=== PATIENT | female | born 1945 | race Two or more races ===

== ENCOUNTER 2022-01-07 10:01 | Emergency (ER) | payer MEDICAID, OTHER ==
[~2022-01-07] VITALS: Ht 147.3 cm; Wt 49.9 kg
[2022-01-07 10:26] VITALS: BP 186/68
[2022-01-07 11:27] LABS: Basophils # (auto) 0.1 10 ^3/uL (0-0.2); Basophils % (auto) 1.1 % (0.0-2.0); Eosinophils # (auto) 0.2 10 ^3/uL (0-0.8); Eosinophils % (auto) 3.4 % (0.0-7.0); Hematocrit 31.8 % (36.0-46.0); Hemoglobin 10.3 g/dL (12.2-16.2); Lymphocytes # (auto) 1.5 10 ^3/uL (0.4-5.4); Lymphocytes % (auto) 28.4 % (10.0-50.0); Mean Corpuscular Hemoglobin 29.4 pg (28.0-32.0); Mean Corpuscular Hgb Conc. 32.5 g/dL (32.0-36.0); Mean Corpuscular Volume 90.4 fL (80.0-100.0); Monocytes # (auto) 0.3 10 ^3/uL (0-1.3); Monocytes % (auto) 6.1 % (0.0-12.0); Neutrophils # (auto) 3.1 10 ^3/uL (1.6-8.6); Nucleated Red Blood Cells % 0.1 %; Red Blood Cells 3.52 10^6/uL (4.0-5.20); Red Cell Distribution Width 14.2 % (11.8-14.3); White Blood Cell 5.1 10^3/uL (4.4-10.8)
[2022-01-07 11:45] LABS: Albumin 3.4 g/dL (3.4-5.0); BUN/Creatinine Ratio 12.1; Calcium 8.9 mg/dL (8.5-10.1); Magnesium 3.1 mg/dL (1.6-2.6); Potassium 4.7 mmol/L (3.5-5.1)
[2022-01-07 11:56] LABS: Bilirubin, Total 0.4 mg/dL (0.2-1.0)
== END 2022-01-07 23:07 | disposition left against medical advice (07) ==
LOC: ER 10:01
DX: R53.1 Weakness (principal); E11.22 Type 2 diabetes mellitus with diabetic chronic kidney disease; I12.0 Hypertensive chronic kidney disease with stage 5 chronic kidney disease or end stage renal disease; N18.6 End stage renal disease; Z20.822 Contact with and (suspected) exposure to COVID-19
CPT/HCPCS: 36415; 80053; 83735; 84484; 85025; 93005

== ENCOUNTER 2023-02-15 18:28 | Emergency (ER) | payer MEDICAID ==
[~2023-02-15] VITALS: Ht 160 cm; Wt 50.0 kg
[2023-02-15] MEDS ORDERED: cloNIDine HCL 0.1 MG TAB PO ONE (19:30)
[2023-02-15 20:58] VITALS: BP 151/97; TEMP 98.2
[2023-02-15 21:00] VITALS: PULSE 72; RESP 16; O2SAT 97
== END 2023-02-15 21:57 | disposition home or self-care (01) ==
LOC: ER 18:28 → EDUNIT# 18:28 → EDBD 18:28 → ER 21:56
DX: I77.0 Arteriovenous fistula, acquired (principal); I12.0 Hypertensive chronic kidney disease with stage 5 chronic kidney disease or end stage renal disease; E11.22 Type 2 diabetes mellitus with diabetic chronic kidney disease; N18.6 End stage renal disease; Z98.890 Other specified postprocedural states

== ENCOUNTER 2023-08-06 18:20 | Emergency (ER) | payer MEDICAID ==
[~2023-08-06] VITALS: Ht 162.6 cm; Wt 50.0 kg
[2023-08-06 19:30] VITALS: PULSE 83; RESP 14; O2SAT 96
[2023-08-06] MEDS: ACETAMINOPHEN 500 MG TAB PO ONE (22:28)
[2023-08-06 23:32] VITALS: BP 149/68; PULSE 80; RESP 18; TEMP 98.2; O2SAT 94
== END 2023-08-06 23:55 | disposition home or self-care (01) ==
LOC: EDBD 18:20 → ER 18:20
DX: T82.838A Hemorrhage due to vascular prosthetic devices, implants and grafts, initial encounter (principal); T82.49XA Other complication of vascular dialysis catheter, initial encounter; E11.22 Type 2 diabetes mellitus with diabetic chronic kidney disease; I12.0 Hypertensive chronic kidney disease with stage 5 chronic kidney disease or end stage renal disease; N18.6 End stage renal disease; Z99.2 Dependence on renal dialysis

== ENCOUNTER 2024-02-15 11:48 | Inpatient (IN) | payer MEDICAID ==
[~2024-02-15] VITALS: Ht 144.8 cm; Wt 47.6 kg
[~2024-02-15 11:48] MED LIST: ERGO1CAP12 PO
[2024-02-15 13:08] LABS: Basophils # (auto) 0 10 ^3/uL (0-0.2); Basophils % (auto) 0.4 % (0.0-2.0); Eosinophils # (auto) 0 10 ^3/uL (0-0.8); Eosinophils % (auto) 0.2 % (0.0-7.0); Hematocrit 38.1 % (36.0-46.0); Hemoglobin 12.3 g/dL (12.2-16.2); Lymphocytes # (auto) 0.5 10 ^3/uL (0.4-5.4); Lymphocytes % (auto) 6.1 % (10.0-50.0); Mean Corpuscular Hemoglobin 29.4 pg (28.0-32.0); Mean Corpuscular Hgb Conc. 32.3 g/dL (32.0-36.0); Monocytes # (auto) 0.5 10 ^3/uL (0-1.3); Monocytes % (auto) 6.2 % (0.0-12.0); Neutrophils # (auto) 7.6 10 ^3/uL (1.6-8.6); Neutrophils % (auto) 87.1 % (37.0-80.0); Platelet Count (auto) 230 10^3/uL (140-450); Red Blood Cells 4.19 10^6/uL (4.0-5.20); Red Cell Distribution Width 15.4 % (11.8-14.3); White Blood Cell 8.7 10^3/uL (4.4-10.8)
[2024-02-15 13:21] LABS: Chloride 94 mmol/L (98-107); Potassium 5.4 mmol/L (3.5-5.1); Sodium 131 mmol/L (136-145)
[2024-02-15 13:22] LABS: Anion Gap 4 (5-15); Carbon Dioxide 33 mmol/L (20-30)
[2024-02-15 13:23] LABS: Calcium 9.6 mg/dL (8.7-10.4)
[2024-02-15 13:28] LABS: BUN/Creatinine Ratio 7.7 (10.0-20.0); Blood Urea Nitrogen 40 mg/dL (9-23); Glucose 200 mg/dL (74-106)
[2024-02-15] MEDS ORDERED: AMLO1TAB22 PO (17:25)
[2024-02-15] MEDS ORDERED: SEVE800T20 PO (17:25)
[2024-02-15] MEDS ORDERED: ATOR20TA50 PO (17:25)
[2024-02-15] MEDS ORDERED: B-CO-6 PO (17:25)
[2024-02-15] MEDS ORDERED: FERR1TAB17 PO (17:25)
[2024-02-15] MEDS ORDERED: MORPHINE SULFATE INJ 2 MG/ml SYRG IV PRN (17:30)
[2024-02-15] MEDS ORDERED: ONDANSETRON HCL 4 MG/2 ML VIAL IV PRN (17:30)
[2024-02-15] MEDS ORDERED: NITROGLYCERIN 0.4 MG SL TAB SL PRN (17:30)
[2024-02-15 18:00] VITALS: O2SAT 99
[2024-02-15] MEDS: HYDROcodone-ACET 5/325MG TAB PO PRN (18:18)
[2024-02-15] MEDS: SODIUM ZIRCONIUM CYCL 10 GM PAK PO ONE (19:04)
[2024-02-15 20:00] VITALS: PULSE 85; RESP 18; O2SAT 96
[2024-02-15] MEDS: TEMAZEPAM 15 MG CAP PO PRN (22:36)
[2024-02-15] MEDS: SEVELAMER 800 MG TAB PO SCH (22:37)
[2024-02-15] MEDS: FERRIC CITRATE 210 MG PO SCH (22:37)
[2024-02-16 08:00] VITALS: RESP 16; O2SAT 95
[2024-02-16 08:39] LABS: Alanine Aminotransferase 18 U/L (7-40); Alkaline Phosphatase 90 U/L (46-116); Anion Gap 3 (5-15); BUN/Creatinine Ratio 5.1 (10.0-20.0); Blood Urea Nitrogen 31 mg/dL (9-23); Calcium 9.5 mg/dL (8.7-10.4); Carbon Dioxide 33 mmol/L (20-30); Chloride 96 mmol/L (98-107); Glucose 115 mg/dL (74-106); Potassium 4.6 mmol/L (3.5-5.1); Sodium 132 mmol/L (136-145); Triglycerides 80 mg/dL (< 150)
[2024-02-16 08:40] LABS: Basophils # (auto) 0.1 10 ^3/uL (0-0.2); Basophils % (auto) 0.7 % (0.0-2.0); Eosinophils # (auto) 0.2 10 ^3/uL (0-0.8); Eosinophils % (auto) 2.1 % (0.0-7.0); Hematocrit 33.7 % (36.0-46.0); LDL Cholesterol 34 mg/dL (< 100); Lymphocytes # (auto) 1.1 10 ^3/uL (0.4-5.4); Lymphocytes % (auto) 12.7 % (10.0-50.0); Mean Corpuscular Hgb Conc. 32.5 g/dL (32.0-36.0); Mean Corpuscular Volume 89.2 fL (80.0-100.0); Monocytes # (auto) 0.7 10 ^3/uL (0-1.3); Monocytes % (auto) 7.9 % (0.0-12.0); Neutrophils # (auto) 6.5 10 ^3/uL (1.6-8.6); Neutrophils % (auto) 76.6 % (37.0-80.0); Nucleated Red Blood Cells % 0.1 %; Platelet Count (auto) 216 10^3/uL (140-450); Red Blood Cells 3.78 10^6/uL (4.0-5.20); Red Cell Distribution Width 14.9 % (11.8-14.3); White Blood Cell 8.5 10^3/uL (4.4-10.8)
[2024-02-16 08:41] LABS: Albumin 3.3 g/dL (3.2-4.8); Aspartate Aminotransferase 29 U/L (13-40); Bilirubin, Total 0.5 mg/dL (0.2-1.0); Cholesterol 126 mg/dL (< 200); HDL Cholesterol 69 mg/dL (40-59); Total Protein 6.6 g/dL (5.7-8.2)
[2024-02-16] MEDS: PANTOPRAZOLE 40 MG TAB PO SCH (10:00)
[2024-02-16] MEDS: amLODIPine BESYLATE 5 MG TAB PO SCH (10:00)
[2024-02-16] MEDS: ATORVASTATIN 20 MG TAB PO SCH (10:00)
[2024-02-16] MEDS: B-COMPLEX W/ C & FOLIC ACID(NEPHROVITE TAB) PO SCH (10:00)
[2024-02-16] MEDS: hydrALAZINE HCL 20 MG/ML VL IV PRN (11:46)
[2024-02-16] MEDS: SODIUM CHL 0.9% 1000 ML BAG XX ONE (19:37)
[2024-02-16 19:45] VITALS: PULSE 109; RESP 28; O2SAT 95
[2024-02-17] VITALS (8 sets, daily range): BP systolic 143–175; BP diastolic 53–83; PULSE 89–101; RESP 15–19; TEMP 98–98.1; O2SAT 93–97
[2024-02-17 08:57] LABS: Hepatitis B Surface Antigen Negative (Negative)
[2024-02-17 09:19] LABS: Hepatitis A Ab IgM Negative; Hepatitis B Core IgM Negative
[2024-02-17] MEDS: MORPHINE SULFATE INJ 2 MG/ml SYRG IV PRN (11:03)
[2024-02-17 11:54] LABS: Hepatitis C Antibody Negative (Negative)
[2024-02-17 15:29] LABS: Urine Bacteria None Seen /hpf (None Seen)
[2024-02-17 15:39] LABS: Urine Blood 1+ /uL (Negative); Urine Clarity Turbid (Clear); Urine Color Light-Yellow (Yellow); Urine Protein, UAD 3+ (Negative); Urine Specific Gravity 1.011 (1.001-1.035); Urine Urobilinogen Normal (Negative); Urine WBC 326 /hpf (0 - 5); Urine pH 8.5 (5.0-9.0)
[2024-02-17 16:41] LABS: INR 1.09 (0.9-1.15); Partial Thromboplastin Time 28.3 SEC (24.5-34.5); Prothrombin Time 11.5 sec (9.3-11.8)
[2024-02-18] VITALS (8 sets, daily range): BP systolic 127–171; BP diastolic 69–76; PULSE 72–96; RESP 16–18; TEMP 98–100.5; O2SAT 91–100
[2024-02-18] MEDS: SODIUM CHL 0.9% 1000 ML BAG XX ONE (14:30)
[2024-02-18 21:03] LABS: Body Fluid pH 8
[2024-02-18 21:04] LABS: Body Fluid Polymorphonuclear 2 % (0-25); Body Fluid Red Blood Cells 335 CUMM (0-2000); Body Fluid White Blood Cells 65 CUMM (0-200)
[2024-02-19] VITALS (8 sets, daily range): BP systolic 104–144; BP diastolic 5–71; PULSE 81–99; RESP 18–20; TEMP 98.3–99.3; O2SAT 95–99
[2024-02-19 07:10] LABS: Basophils # (auto) 0 10 ^3/uL (0-0.2); Basophils % (auto) 0.6 % (0.0-2.0); Eosinophils # (auto) 0.2 10 ^3/uL (0-0.8); Eosinophils % (auto) 2.3 % (0.0-7.0); Hematocrit 35.1 % (36.0-46.0); Hemoglobin 11.6 g/dL (12.2-16.2); Lymphocytes # (auto) 1.2 10 ^3/uL (0.4-5.4); Lymphocytes % (auto) 15.8 % (10.0-50.0); Mean Corpuscular Hemoglobin 29.6 pg (28.0-32.0); Mean Corpuscular Volume 89.6 fL (80.0-100.0); Monocytes # (auto) 0.7 10 ^3/uL (0-1.3); Neutrophils # (auto) 5.2 10 ^3/uL (1.6-8.6); Neutrophils % (auto) 71.3 % (37.0-80.0); Nucleated Red Blood Cells % 0.1 %; Platelet Count (auto) 200 10^3/uL (140-450); Red Blood Cells 3.91 10^6/uL (4.0-5.20); Red Cell Distribution Width 15.4 % (11.8-14.3); White Blood Cell 7.3 10^3/uL (4.4-10.8)
[2024-02-19 07:13] LABS: Chloride 102 mmol/L (98-107); Potassium 4.1 mmol/L (3.5-5.1); Sodium 135 mmol/L (136-145)
[2024-02-19 07:14] LABS: Anion Gap 1 (5-15); Calcium 9.4 mg/dL (8.7-10.4); Carbon Dioxide 32 mmol/L (20-30)
[2024-02-19 07:19] LABS: BUN/Creatinine Ratio 5.2 (10.0-20.0); Blood Urea Nitrogen 18 mg/dL (9-23); Glucose 129 mg/dL (74-106)
[2024-02-19] MEDS: SACUBITRIL-VALSARTAN 24mg/26mg TAB PO SCH (21:48)
[2024-02-19] MEDS: CARVEDILOL 3.125 MG TAB PO SCH (21:48)
[2024-02-20] VITALS (8 sets, daily range): BP systolic 102–146; BP diastolic 44–71; PULSE 58–86; RESP 15–18; TEMP 97.2–98.3; O2SAT 94–100
[2024-02-20 07:07] LABS: Anion Gap 5 (5-15); Carbon Dioxide 28 mmol/L (20-30); Chloride 98 mmol/L (98-107); Potassium 4.6 mmol/L (3.5-5.1); Sodium 131 mmol/L (136-145)
[2024-02-20 07:08] LABS: Calcium 9.1 mg/dL (8.7-10.4)
[2024-02-20 07:12] LABS: Basophils # (auto) 0.1 10 ^3/uL (0-0.2); Basophils % (auto) 0.8 % (0.0-2.0); Eosinophils # (auto) 0.3 10 ^3/uL (0-0.8); Eosinophils % (auto) 3.9 % (0.0-7.0); Hematocrit 36.6 % (36.0-46.0); Lymphocytes # (auto) 1.2 10 ^3/uL (0.4-5.4); Mean Corpuscular Hemoglobin 29.6 pg (28.0-32.0); Mean Corpuscular Hgb Conc. 32.7 g/dL (32.0-36.0); Mean Corpuscular Volume 90.5 fL (80.0-100.0); Monocytes # (auto) 0.9 10 ^3/uL (0-1.3); Monocytes % (auto) 11.2 % (0.0-12.0); Neutrophils # (auto) 5.3 10 ^3/uL (1.6-8.6); Neutrophils % (auto) 69.1 % (37.0-80.0); Nucleated Red Blood Cells % 0.1 %; Platelet Count (auto) 167 10^3/uL (140-450); Red Blood Cells 4.05 10^6/uL (4.0-5.20); Red Cell Distribution Width 15.7 % (11.8-14.3); White Blood Cell 7.7 10^3/uL (4.4-10.8)
[2024-02-20 07:13] LABS: BUN/Creatinine Ratio 6.8 (10.0-20.0); Glucose 153 mg/dL (74-106)
[2024-02-20 07:20] LABS: Blood Urea Nitrogen 32 mg/dL (9-23)
[2024-02-21] VITALS (8 sets, daily range): BP systolic 88–126; BP diastolic 39–57; PULSE 61–79; RESP 16–18; TEMP 97.4–98.5; O2SAT 93–100
[2024-02-21] MEDS: SODIUM CHL 0.9% 1000 ML BAG XX ONE (07:00)
[2024-02-21 07:15] LABS: Basophils # (auto) 0.1 10 ^3/uL (0-0.2); Basophils % (auto) 0.8 % (0.0-2.0); Eosinophils # (auto) 0.4 10 ^3/uL (0-0.8); Eosinophils % (auto) 5.1 % (0.0-7.0); Hematocrit 37.3 % (36.0-46.0); Hemoglobin 12.1 g/dL (12.2-16.2); Lymphocytes # (auto) 1.2 10 ^3/uL (0.4-5.4); Lymphocytes % (auto) 14.9 % (10.0-50.0); Mean Corpuscular Hemoglobin 28.8 pg (28.0-32.0); Mean Corpuscular Hgb Conc. 32.5 g/dL (32.0-36.0); Mean Corpuscular Volume 88.5 fL (80.0-100.0); Monocytes # (auto) 0.7 10 ^3/uL (0-1.3); Monocytes % (auto) 8.7 % (0.0-12.0); Neutrophils # (auto) 5.5 10 ^3/uL (1.6-8.6); Neutrophils % (auto) 70.5 % (37.0-80.0); Platelet Count (auto) 182 10^3/uL (140-450); Red Blood Cells 4.21 10^6/uL (4.0-5.20); White Blood Cell 7.8 10^3/uL (4.4-10.8)
[2024-02-21 07:54] LABS: Anion Gap 3 (5-15); Calcium 9.4 mg/dL (8.7-10.4); Carbon Dioxide 30 mmol/L (20-30); Chloride 94 mmol/L (98-107); Potassium 4.7 mmol/L (3.5-5.1); Sodium 127 mmol/L (136-145)
[2024-02-21 08:00] LABS: BUN/Creatinine Ratio 8.6 (10.0-20.0); Glucose 161 mg/dL (74-106)
[2024-02-21 08:02] LABS: Blood Urea Nitrogen 49 mg/dL (9-23)
[2024-02-21] MEDS: cefTRIAXone 1GM/50ML D5W 50 ML IV SCH (09:32)
[2024-02-21] MEDS: AZITHROMYCIN 500MG/ 250ML 250 ML IV SCH (15:41)
[2024-02-22] VITALS (9 sets, daily range): BP systolic 101–129; BP diastolic 41–101; PULSE 66–90; RESP 16–19; TEMP 97.5–98.4; O2SAT 94–100
[2024-02-22 13:07] LABS: Protein, Body Fluid 3.8 g/dL (.)
[2024-02-23] VITALS (9 sets, daily range): BP systolic 108–139; BP diastolic 45–73; PULSE 69–92; RESP 14–20; TEMP 97.6–97.9; O2SAT 90–100
[2024-02-23] MEDS: SODIUM CHL 0.9% 1000 ML BAG XX ONE (08:12)
[2024-02-23] MEDS: EPOETIN ALFA-EPBX 4,000 UNIT/ML VIAL SC ONE (20:34)
[2024-02-24] VITALS (8 sets, daily range): BP systolic 78–131; BP diastolic 33–66; PULSE 73–86; RESP 14–18; TEMP 97.2–98.9; O2SAT 91–100
[2024-02-24 11:17] LABS: Basophils # (auto) 0.1 10 ^3/uL (0-0.2); Basophils % (auto) 0.9 % (0.0-2.0); Eosinophils # (auto) 0.2 10 ^3/uL (0-0.8); Eosinophils % (auto) 2.3 % (0.0-7.0); Hematocrit 33.5 % (36.0-46.0); Lymphocytes % (auto) 15.8 % (10.0-50.0); Mean Corpuscular Hgb Conc. 32.9 g/dL (32.0-36.0); Mean Corpuscular Volume 88.3 fL (80.0-100.0); Monocytes # (auto) 0.6 10 ^3/uL (0-1.3); Monocytes % (auto) 9.5 % (0.0-12.0); Neutrophils # (auto) 4.6 10 ^3/uL (1.6-8.6); Neutrophils % (auto) 71.5 % (37.0-80.0); Nucleated Red Blood Cells % 0.2 %; Platelet Count (auto) 178 10^3/uL (140-450); Red Blood Cells 3.79 10^6/uL (4.0-5.20); Red Cell Distribution Width 15.1 % (11.8-14.3); White Blood Cell 6.5 10^3/uL (4.4-10.8)
[2024-02-24 11:30] LABS: Anion Gap 5 (5-15); Calcium 9.2 mg/dL (8.7-10.4); Carbon Dioxide 30 mmol/L (20-30); Chloride 96 mmol/L (98-107); Potassium 4.5 mmol/L (3.5-5.1); Sodium 131 mmol/L (136-145)
[2024-02-24 11:36] LABS: BUN/Creatinine Ratio 9.4 (10.0-20.0); Blood Urea Nitrogen 42 mg/dL (9-23); Glucose 224 mg/dL (74-106); Magnesium 2.1 mg/dL (1.6-2.6)
[2024-02-24] MEDS: DOCUSATE SOD 100 MG CAP PO PRN (11:42)
[2024-02-25] VITALS (12 sets, daily range): BP systolic 106–131; BP diastolic 38–67; PULSE 61–82; RESP 14–20; TEMP 97.5–97.9; O2SAT 91–100
[2024-02-25 06:33] LABS: INR 1.05 (0.9-1.15); Partial Thromboplastin Time 29.2 SEC (24.5-34.5); Prothrombin Time 11.1 sec (9.3-11.8)
[2024-02-25] MEDS: SODIUM CHL 0.9% 1000 ML BAG XX ONE (07:00)
[2024-02-25] MEDS: IODIXANOL 320MG/ML 100ML BTL IV ONE (07:29)
[2024-02-25] MEDS: VERAPAMIL 2.5MG/ML INJ 2ML VIAL IV ONE (08:00)
[2024-02-25] MEDS: ANGIOMAX 250 MG VIAL IV ONE (08:00)
[2024-02-25] MEDS: HEPARIN SODIUM (PORCINE) 5000 UNITS/ML 1ML VIAL ONE (08:00)
[2024-02-25] MEDS: fentaNYL CITRATE 100 MCG/2 ML VL ONE (08:01)
[2024-02-25] MEDS: LIDOCAINE 2%HCL (LOCAL ANESTH.) INJ 20ML MDV ONE (08:01)
[2024-02-25] MEDS: MIDAZOLAM HCL 2MG/2ML 2ml VIAL (1mg/ml) ONE (08:01)
[2024-02-25] MEDS: SODIUM CHL 0.9% 0 ML ONE (08:01)
[2024-02-25] MEDS: ACETAMINOPHEN 325 MG TAB PO PRN (11:59)
[2024-02-25] MEDS ORDERED: CARV-214 PO (14:48)
[2024-02-25] MEDS ORDERED: SACU1TAB PO (14:48)
[2024-02-25] MEDS ORDERED: DOXY100C79 PO (14:50)
[2024-02-25] MEDS: MUPIROCIN 2% OINT 15gm or 22gm TOP SCH (21:43)
[2024-02-26] VITALS (8 sets, daily range): BP systolic 115–136; BP diastolic 44–73; PULSE 62–74; RESP 15–20; TEMP 97.8–99.1; O2SAT 96–100
[2024-02-26] MEDS: SEVELAMER 800 MG TAB PO SCH (12:11)
[2024-02-27] VITALS (8 sets, daily range): BP systolic 94–159; BP diastolic 48–71; PULSE 68–77; RESP 16–21; TEMP 97.7–98.3; O2SAT 98–100
[2024-02-28] VITALS (8 sets, daily range): BP systolic 105–141; BP diastolic 53–65; PULSE 62–81; RESP 16–20; TEMP 97.6–98.5; O2SAT 95–100
[2024-02-28] MEDS: SODIUM CHL 0.9% 1000 ML BAG XX ONE (07:00)
[2024-02-28 10:40] LABS: Basophils # (auto) 0.1 10 ^3/uL (0-0.2); Basophils % (auto) 1.3 % (0.0-2.0); Eosinophils # (auto) 0.2 10 ^3/uL (0-0.8); Eosinophils % (auto) 2.6 % (0.0-7.0); Hematocrit 32.5 % (36.0-46.0); Hemoglobin 10.8 g/dL (12.2-16.2); Lymphocytes # (auto) 1.1 10 ^3/uL (0.4-5.4); Lymphocytes % (auto) 19.3 % (10.0-50.0); Mean Corpuscular Hemoglobin 28.9 pg (28.0-32.0); Mean Corpuscular Hgb Conc. 33.2 g/dL (32.0-36.0); Monocytes # (auto) 0.4 10 ^3/uL (0-1.3); Monocytes % (auto) 6.1 % (0.0-12.0); Neutrophils # (auto) 4.1 10 ^3/uL (1.6-8.6); Neutrophils % (auto) 70.7 % (37.0-80.0); Platelet Count (auto) 239 10^3/uL (140-450); Red Blood Cells 3.73 10^6/uL (4.0-5.20); Red Cell Distribution Width 14.9 % (11.8-14.3); White Blood Cell 5.8 10^3/uL (4.4-10.8)
[2024-02-28] MEDS: ALBUMIN 25% 100 ML IV ONE ×2 (11:26)
[2024-02-28] MEDS: CATHFLO ACTIVASE (ALTEPLASE) 2 MG VIAL IV ONE (13:31)
[2024-02-28 14:43] LABS: Chloride 99 mmol/L (98-107); Sodium 134 mmol/L (136-145)
[2024-02-28 14:44] LABS: Anion Gap 4 (5-15); Carbon Dioxide 31 mmol/L (20-30)
[2024-02-28 14:45] LABS: Calcium 9.5 mg/dL (8.7-10.4)
[2024-02-28 14:49] LABS: BUN/Creatinine Ratio 9.3 (10.0-20.0); Blood Urea Nitrogen 27 mg/dL (9-23); Glucose 178 mg/dL (74-106)
[2024-02-29] VITALS (8 sets, daily range): BP systolic 111–142; BP diastolic 54–69; PULSE 66–76; RESP 17–18; TEMP 98.1–98.5; O2SAT 93–100
[2024-02-29] MEDS: CATHFLO ACTIVASE (ALTEPLASE) 2 MG VIAL IV ONE (16:33)
[2024-03-01] VITALS (9 sets, daily range): BP systolic 112–142; BP diastolic 43–73; PULSE 68–83; RESP 16–100; TEMP 97.4–98.5; O2SAT 95–100
[2024-03-01] MEDS: SODIUM CHL 0.9% 1000 ML BAG XX ONE (08:31)
[2024-03-01] MEDS: ALBUMIN 25% 50 ML IV STA (09:54)
[2024-03-01] MEDS: ALBUMIN 25% 0 ML IV ONE (10:03)
[2024-03-01] MEDS: ALBUMIN 25% 100 ML IV ONE (10:08)
[2024-03-01] MEDS: CATHFLO ACTIVASE (ALTEPLASE) 2 MG VIAL IV STA (12:54)
[2024-03-01 14:08] LABS: Alanine Aminotransferase 25 U/L (7-40); Albumin 3.2 g/dL (3.2-4.8); Alkaline Phosphatase 113 U/L (46-116); Anion Gap 3 (5-15); Aspartate Aminotransferase 23 U/L (13-40); BUN/Creatinine Ratio 8.6 (10.0-20.0); Blood Urea Nitrogen 24 mg/dL (9-23); Calcium 9.1 mg/dL (8.7-10.4); Carbon Dioxide 31 mmol/L (20-30); Chloride 99 mmol/L (98-107); Glucose 279 mg/dL (74-106); Potassium 4.2 mmol/L (3.5-5.1); Sodium 133 mmol/L (136-145)
[2024-03-01 14:09] LABS: Bilirubin, Total 0.2 mg/dL (0.2-1.0); Total Protein 5.4 g/dL (5.7-8.2)
[2024-03-02] VITALS (8 sets, daily range): BP systolic 97–135; BP diastolic 46–72; PULSE 64–72; RESP 15–20; TEMP 97.3–98.4; O2SAT 96–100
[2024-03-02 06:43] LABS: Anion Gap 3 (5-15); Calcium 9.5 mg/dL (8.7-10.4); Carbon Dioxide 32 mmol/L (20-30); Chloride 96 mmol/L (98-107); Potassium 4.6 mmol/L (3.5-5.1); Sodium 131 mmol/L (136-145)
[2024-03-02 06:49] LABS: BUN/Creatinine Ratio 8.6 (10.0-20.0); Glucose 189 mg/dL (74-106)
[2024-03-02 06:56] LABS: Basophils # (auto) 0.1 10 ^3/uL (0-0.2); Basophils % (auto) 1.3 % (0.0-2.0); Eosinophils # (auto) 0.2 10 ^3/uL (0-0.8); Eosinophils % (auto) 2.7 % (0.0-7.0); Hemoglobin 10.1 g/dL (12.2-16.2); Lymphocytes # (auto) 1.3 10 ^3/uL (0.4-5.4); Lymphocytes % (auto) 19.5 % (10.0-50.0); Mean Corpuscular Hemoglobin 28.8 pg (28.0-32.0); Mean Corpuscular Hgb Conc. 33.5 g/dL (32.0-36.0); Mean Corpuscular Volume 85.8 fL (80.0-100.0); Monocytes # (auto) 0.6 10 ^3/uL (0-1.3); Monocytes % (auto) 9.2 % (0.0-12.0); Neutrophils # (auto) 4.3 10 ^3/uL (1.6-8.6); Neutrophils % (auto) 67.3 % (37.0-80.0); Nucleated Red Blood Cells % 0.1 %; Platelet Count (auto) 212 10^3/uL (140-450); White Blood Cell 6.4 10^3/uL (4.4-10.8)
[2024-03-02 07:01] LABS: Blood Urea Nitrogen 35 mg/dL (9-23)
[2024-03-03] VITALS (8 sets, daily range): BP systolic 102–155; BP diastolic 36–76; PULSE 68–79; RESP 14–20; TEMP 97.4–98.6; O2SAT 94–100
[2024-03-03] MEDS: SODIUM CHL 0.9% 1000 ML BAG XX ONE (07:30)
[2024-03-04] VITALS (9 sets, daily range): BP systolic 110–139; BP diastolic 48–80; PULSE 62–84; RESP 14–19; TEMP 36.8; O2SAT 93–98
[2024-03-05 01:00] VITALS: BP 127/68; PULSE 68; RESP 18; TEMP 97.9; O2SAT 94
[2024-03-05 05:00] VITALS: BP 133/71; PULSE 71; RESP 19; TEMP 98; O2SAT 93
[2024-03-05 08:00] VITALS: PULSE 72; RESP 18
[2024-03-05 09:00] VITALS: BP 140/63; PULSE 71; RESP 17; TEMP 98.4; O2SAT 99
[2024-03-05 13:00] VITALS: BP 127/60; PULSE 67; RESP 18; TEMP 98.4; O2SAT 98
[2024-03-05 13:41] LABS: Basophils # (auto) 0.1 10 ^3/uL (0-0.2); Basophils % (auto) 1.4 % (0.0-2.0); Eosinophils # (auto) 0.2 10 ^3/uL (0-0.8); Eosinophils % (auto) 2.7 % (0.0-7.0); Hematocrit 33.1 % (36.0-46.0); Lymphocytes # (auto) 0.9 10 ^3/uL (0.4-5.4); Lymphocytes % (auto) 14.7 % (10.0-50.0); Mean Corpuscular Hgb Conc. 33.3 g/dL (32.0-36.0); Mean Corpuscular Volume 87.3 fL (80.0-100.0); Monocytes # (auto) 0.4 10 ^3/uL (0-1.3); Monocytes % (auto) 6.6 % (0.0-12.0); Neutrophils # (auto) 4.7 10 ^3/uL (1.6-8.6); Neutrophils % (auto) 74.6 % (37.0-80.0); Platelet Count (auto) 268 10^3/uL (140-450); Red Blood Cells 3.79 10^6/uL (4.0-5.20); Red Cell Distribution Width 15.6 % (11.8-14.3); White Blood Cell 6.3 10^3/uL (4.4-10.8)
[2024-03-05 13:49] LABS: Chloride 97 mmol/L (98-107); Potassium 5.5 mmol/L (3.5-5.1); Sodium 129 mmol/L (136-145)
[2024-03-05 13:50] LABS: Anion Gap 2 (5-15); Calcium 9.7 mg/dL (8.7-10.4); Carbon Dioxide 30 mmol/L (20-30)
[2024-03-05 13:55] LABS: BUN/Creatinine Ratio 11.9 (10.0-20.0); Blood Urea Nitrogen 62 mg/dL (9-23); Glucose 234 mg/dL (74-106)
[2024-03-05] MEDS: SODIUM ZIRCONIUM CYCL 10 GM PAK PO ONE (17:15)
[2024-03-06] MEDS ORDERED: SODIUM CHL 0.9% 1000 ML BAG XX ONE (07:00)
[2024-03-06] MEDS ORDERED: EPOETIN ALFA-EPBX 10,000 UNIT/1ML VIAL SC ONE (21:00)
== END 2024-03-05 17:30 | DRG 192 ==
LOC: ER 11:48 → EDBD 11:48 → TELE 17:25 → TELE-WESTW 02-17 09:12
PROVIDERS: ADMIT Nurse Practitioner; ATTEND Nurse Practitioner
PROC: 5A1D70Z Performance of Urinary Filtration, Intermittent, Less than 6 Hours Per Day (ICD-10-PCS; 2024-02-16)
PROC: 5A1D70Z Performance of Urinary Filtration, Intermittent, Less than 6 Hours Per Day (ICD-10-PCS; 2024-02-18)
PROC: 0W9B3ZZ Drainage of Left Pleural Cavity, Percutaneous Approach (ICD-10-PCS; 2024-02-18)
PROC: 5A1D70Z Performance of Urinary Filtration, Intermittent, Less than 6 Hours Per Day (ICD-10-PCS; 2024-02-21)
PROC: 0W9B3ZZ Drainage of Left Pleural Cavity, Percutaneous Approach (ICD-10-PCS; 2024-02-22)
PROC: 5A1D70Z Performance of Urinary Filtration, Intermittent, Less than 6 Hours Per Day (ICD-10-PCS; 2024-02-23)
PROC: 4A023N7 Measurement of Cardiac Sampling and Pressure, Left Heart, Percutaneous Approach (ICD-10-PCS; principal; 2024-02-25)
PROC: B211YZZ Fluoroscopy of Multiple Coronary Arteries using Other Contrast (ICD-10-PCS; 2024-02-25)
PROC: B215YZZ Fluoroscopy of Left Heart using Other Contrast (ICD-10-PCS; 2024-02-25)
PROC: 5A1D70Z Performance of Urinary Filtration, Intermittent, Less than 6 Hours Per Day (ICD-10-PCS; 2024-02-25)
PROC: 0W9B30Z Drainage of Left Pleural Cavity with Drainage Device, Percutaneous Approach (ICD-10-PCS; 2024-02-27)
PROC: 5A1D70Z Performance of Urinary Filtration, Intermittent, Less than 6 Hours Per Day (ICD-10-PCS; 2024-02-28)
PROC: 5A1D70Z Performance of Urinary Filtration, Intermittent, Less than 6 Hours Per Day (ICD-10-PCS; 2024-03-01)
DX: I13.2 Hypertensive heart and chronic kidney disease with heart failure and with stage 5 chronic kidney disease, or end stage renal disease (principal); J96.01 Acute respiratory failure with hypoxia; J15.69 Pneumonia due to other Gram-negative bacteria; J94.2 Hemothorax; E87.20 Acidosis, unspecified; I27.20 Pulmonary hypertension, unspecified; E87.1 Hypo-osmolality and hyponatremia; J15.9 Unspecified bacterial pneumonia; J91.8 Pleural effusion in other conditions classified elsewhere; I25.10 Atherosclerotic heart disease of native coronary artery without angina pectoris; I50.23 Acute on chronic systolic (congestive) heart failure; R64 Cachexia; N18.6 End stage renal disease; E11.22 Type 2 diabetes mellitus with diabetic chronic kidney disease; E78.5 Hyperlipidemia, unspecified; E87.5 Hyperkalemia; N25.81 Secondary hyperparathyroidism of renal origin; J98.11 Atelectasis; Z99.2 Dependence on renal dialysis; J93.9 Pneumothorax, unspecified; Z68.1 Body mass index [BMI] 19.9 or less, adult; I42.8 Other cardiomyopathies; S09.90XA Unspecified injury of head, initial encounter; W01.0XXA Fall on same level from slipping, tripping and stumbling without subsequent striking against object, initial encounter; S09.93XA Unspecified injury of face, initial encounter; S05.11XA Contusion of eyeball and orbital tissues, right eye, initial encounter; I35.1 Nonrheumatic aortic (valve) insufficiency; I07.1 Rheumatic tricuspid insufficiency; F03.90 Unspecified dementia, unspecified severity, without behavioral disturbance, psychotic disturbance, mood disturbance, and anxiety; Y93.89 Activity, other specified; Y92.89 Other specified places as the place of occurrence of the external cause; Y99.8 Other external cause status; Z86.73 Personal history of transient ischemic attack (TIA), and cerebral infarction without residual deficits; Z79.899 Other long term (current) drug therapy
CPT/HCPCS: 32555; 36415; 70450; 70486; 70551; 71045; 71250; 76604; 80048; 80053; 80061; 80074; 81001; 83036; 83735; 83986; 84484; 85018; 85025; 85610; 85730; 86850; 86900; 86901; 87081; 87205; 89051; 90935; 93005; 93306; 93458; 97110; 97116; 97163; 97530; 99152; G0378; J1642; J2250; P9047; Q9967

== ENCOUNTER 2024-03-13 11:45 | Inpatient (IN) | payer MEDICAID ==
[~2024-03-13] VITALS: Ht 142.2 cm; Wt 42.5 kg
[~2024-03-13 11:45] MED LIST changes: +AMLO1TAB22 PO; +ATOR20TA50 PO; +B-CO-6 PO; +CARV-214 PO; +DOXY100C79 PO; +FERR1TAB17 PO; +SACU1TAB PO; +SEVE800T20 PO
[2024-03-13 12:10] VITALS: PULSE 96; RESP 30; O2SAT 96
[2024-03-13 14:15] LABS: Basophils # (auto) 0.1 10 ^3/uL (0-0.2); Basophils % (auto) 0.8 % (0.0-2.0); Eosinophils # (auto) 0 10 ^3/uL (0-0.8); Hemoglobin 11.9 g/dL (12.2-16.2); Lymphocytes # (auto) 0.6 10 ^3/uL (0.4-5.4); Lymphocytes % (auto) 6.5 % (10.0-50.0); Mean Corpuscular Hemoglobin 30.1 pg (28.0-32.0); Mean Corpuscular Volume 88.6 fL (80.0-100.0); Monocytes # (auto) 0.6 10 ^3/uL (0-1.3); Monocytes % (auto) 5.7 % (0.0-12.0); Neutrophils # (auto) 8.4 10 ^3/uL (1.6-8.6); Platelet Count (auto) 277 10^3/uL (140-450); Red Blood Cells 3.95 10^6/uL (4.0-5.20); Red Cell Distribution Width 17.4 % (11.8-14.3); White Blood Cell 9.6 10^3/uL (4.4-10.8)
[2024-03-13 14:53] LABS: Alanine Aminotransferase 46 U/L (7-40); Albumin 3.7 g/dL (3.2-4.8); Alkaline Phosphatase 163 U/L (46-116); Anion Gap 8 (5-15); Aspartate Aminotransferase 42 U/L (13-40); BUN/Creatinine Ratio 13.2 (10.0-20.0); Bilirubin, Total 0.5 mg/dL (0.2-1.0); Calcium 10.4 mg/dL (8.7-10.4); Carbon Dioxide 28 mmol/L (20-30); Chloride 100 mmol/L (98-107); Glucose 178 mg/dL (74-106); Potassium 5.5 mmol/L (3.5-5.1); Sodium 136 mmol/L (136-145); Total Protein 7.1 g/dL (5.7-8.2)
[2024-03-13 15:16] LABS: Urine Bacteria None Seen /hpf (None Seen)
[2024-03-13] MEDS: FUROSEMIDE 40 MG/4 ML VIAL IV ONE (15:18)
[2024-03-13] MEDS: NITROGLYCERIN 2% OINT 1GM PKG TD ONE (15:18)
[2024-03-13] MEDS: MORPHINE SULFATE INJ 2 MG/ml SYRG IV ONE (15:19)
[2024-03-13 15:24] LABS: Blood Urea Nitrogen 83 mg/dL (9-23)
[2024-03-13 15:33] LABS: Urine Blood 1+ /uL (Negative); Urine Clarity Ex.Turbid (Clear); Urine Color Light-Orange (Yellow); Urine Protein, UAD 2+ (Negative); Urine Specific Gravity 1.012 (1.001-1.035); Urine Urobilinogen Normal (Negative); Urine WBC 284 /hpf (0 - 5)
[2024-03-13] MEDS ORDERED: ACETAMINOPHEN 325 MG TAB PO PRN (18:45)
[2024-03-13] MEDS ORDERED: MORPHINE SULFATE INJ 2 MG/ml SYRG IV PRN (18:45)
[2024-03-13] MEDS ORDERED: NITROGLYCERIN 0.4 MG SL TAB SL PRN (18:45)
[2024-03-13] MEDS ORDERED: HYDROcodone-ACET 5/325MG TAB PO PRN (18:45)
[2024-03-13 19:20] VITALS: PULSE 105; RESP 40; O2SAT 88
[2024-03-13 21:30] VITALS: O2SAT 94
[2024-03-13 22:00] VITALS: BP 145/78; PULSE 103; RESP 20; TEMP 99.2; O2SAT 94
[2024-03-13] MEDS: SACUBITRIL-VALSARTAN 24mg/26mg TAB PO SCH (22:59)
[2024-03-13] MEDS: CARVEDILOL 3.125 MG TAB PO SCH (23:03)
[2024-03-14] VITALS (10 sets, daily range): BP systolic 120–137; BP diastolic 65–84; PULSE 68–92; RESP 16–20; TEMP 98.2–99.5; O2SAT 90–100
[2024-03-14 07:07] LABS: Basophils # (auto) 0.1 10 ^3/uL (0-0.2); Basophils % (auto) 1.3 % (0.0-2.0); Eosinophils # (auto) 0.1 10 ^3/uL (0-0.8); Eosinophils % (auto) 0.7 % (0.0-7.0); Hematocrit 30.1 % (36.0-46.0); Hemoglobin 10.1 g/dL (12.2-16.2); Lymphocytes # (auto) 0.9 10 ^3/uL (0.4-5.4); Lymphocytes % (auto) 11.7 % (10.0-50.0); Mean Corpuscular Hemoglobin 29.6 pg (28.0-32.0); Mean Corpuscular Hgb Conc. 33.6 g/dL (32.0-36.0); Mean Corpuscular Volume 88.2 fL (80.0-100.0); Monocytes # (auto) 0.5 10 ^3/uL (0-1.3); Monocytes % (auto) 7.4 % (0.0-12.0); Neutrophils # (auto) 5.8 10 ^3/uL (1.6-8.6); Neutrophils % (auto) 78.9 % (37.0-80.0); Platelet Count (auto) 222 10^3/uL (140-450); Red Blood Cells 3.41 10^6/uL (4.0-5.20); Red Cell Distribution Width 18.1 % (11.8-14.3); White Blood Cell 7.4 10^3/uL (4.4-10.8)
[2024-03-14 07:15] LABS: Alanine Aminotransferase 33 U/L (7-40); Albumin 3.2 g/dL (3.2-4.8); Alkaline Phosphatase 117 U/L (46-116); Anion Gap 8 (5-15); Aspartate Aminotransferase 24 U/L (13-40); BUN/Creatinine Ratio 14.1 (10.0-20.0); Calcium 9.8 mg/dL (8.7-10.4); Carbon Dioxide 27 mmol/L (20-30); Chloride 101 mmol/L (98-107); Glucose 155 mg/dL (74-106); Sodium 136 mmol/L (136-145)
[2024-03-14 07:16] LABS: Bilirubin, Total 0.5 mg/dL (0.2-1.0); Total Protein 6.4 g/dL (5.7-8.2)
[2024-03-14 07:19] LABS: Potassium 5.7 mmol/L (3.5-5.1)
[2024-03-14 07:20] LABS: Blood Urea Nitrogen 96 mg/dL (9-23)
[2024-03-14] MEDS: SODIUM CHL 0.9% 1000 ML BAG XX ONE (07:30)
[2024-03-14] MEDS: SEVELAMER 800 MG TAB PO SCH (08:55)
[2024-03-14] MEDS: B-COMPLEX W/ C & FOLIC ACID(NEPHROVITE TAB) PO SCH (08:56)
[2024-03-14] MEDS: ATORVASTATIN 20 MG TAB PO SCH (08:56)
[2024-03-14] MEDS: amLODIPine BESYLATE 5 MG TAB PO SCH (10:00)
[2024-03-14] MEDS ORDERED: ALBUTEROL SULF 2.5 MG/0.5ML(0.5%) NEB SOLN NEB PRN (16:15)
[2024-03-15] VITALS (10 sets, daily range): BP systolic 128–144; BP diastolic 62–71; PULSE 64–81; RESP 16–18; TEMP 98–98.9; O2SAT 97–100
[2024-03-16] VITALS (11 sets, daily range): BP systolic 112–137; BP diastolic 50–70; PULSE 63–76; RESP 14–20; TEMP 97.3–99.7; O2SAT 95–100
[2024-03-16] MEDS: SODIUM CHL 0.9% 1000 ML BAG XX ONE (07:00)
[2024-03-16 10:10] LABS: Hepatitis B Surface Antigen Negative (Negative)
[2024-03-16 10:30] LABS: Hepatitis A Ab IgM Negative
[2024-03-16 10:31] LABS: Hepatitis B Core IgM Negative; Hepatitis C Antibody Negative (Negative)
[2024-03-17] VITALS (13 sets, daily range): BP systolic 115–139; BP diastolic 63–89; PULSE 64–78; RESP 16; TEMP 97.5–99.5; O2SAT 95–99
[2024-03-17 06:47] LABS: Alanine Aminotransferase 55 U/L (7-40); Albumin 3.1 g/dL (3.2-4.8); Alkaline Phosphatase 140 U/L (46-116); Anion Gap 6 (5-15); Aspartate Aminotransferase 53 U/L (13-40); BUN/Creatinine Ratio 10.5 (10.0-20.0); Blood Urea Nitrogen 44 mg/dL (9-23); Calcium 9.4 mg/dL (8.7-10.4); Carbon Dioxide 32 mmol/L (20-30); Chloride 97 mmol/L (98-107); Glucose 144 mg/dL (74-106); Magnesium 2.2 mg/dL (1.6-2.6); Potassium 4.7 mmol/L (3.5-5.1); Sodium 135 mmol/L (136-145)
[2024-03-17 06:48] LABS: Bilirubin, Total 0.3 mg/dL (0.2-1.0); Total Protein 6.1 g/dL (5.7-8.2)
[2024-03-17 06:56] LABS: Basophils # (auto) 0.1 10 ^3/uL (0-0.2); Basophils % (auto) 1.3 % (0.0-2.0); Eosinophils # (auto) 0.3 10 ^3/uL (0-0.8); Eosinophils % (auto) 4.9 % (0.0-7.0); Hematocrit 31.4 % (36.0-46.0); Hemoglobin 10.6 g/dL (12.2-16.2); Lymphocytes # (auto) 1.5 10 ^3/uL (0.4-5.4); Lymphocytes % (auto) 28.4 % (10.0-50.0); Mean Corpuscular Hemoglobin 29.1 pg (28.0-32.0); Mean Corpuscular Hgb Conc. 33.6 g/dL (32.0-36.0); Mean Corpuscular Volume 86.6 fL (80.0-100.0); Monocytes # (auto) 0.5 10 ^3/uL (0-1.3); Monocytes % (auto) 9.7 % (0.0-12.0); Neutrophils % (auto) 55.7 % (37.0-80.0); Nucleated Red Blood Cells % 0.1 %; Platelet Count (auto) 199 10^3/uL (140-450); Red Blood Cells 3.63 10^6/uL (4.0-5.20); Red Cell Distribution Width 16.8 % (11.8-14.3); White Blood Cell 5.4 10^3/uL (4.4-10.8)
[2024-03-18 01:00] VITALS: BP 134/65; PULSE 72; RESP 16; TEMP 99.5; O2SAT 100
[2024-03-18 05:00] VITALS: BP 137/70; PULSE 69; RESP 16; TEMP 99.4; O2SAT 100
[2024-03-18 05:52] LABS: Basophils # (auto) 0.1 10 ^3/uL (0-0.2); Basophils % (auto) 1.4 % (0.0-2.0); Eosinophils # (auto) 0.3 10 ^3/uL (0-0.8); Eosinophils % (auto) 6.4 % (0.0-7.0); Hematocrit 31.9 % (36.0-46.0); Hemoglobin 10.7 g/dL (12.2-16.2); Lymphocytes # (auto) 1.4 10 ^3/uL (0.4-5.4); Lymphocytes % (auto) 26.2 % (10.0-50.0); Mean Corpuscular Hemoglobin 28.9 pg (28.0-32.0); Mean Corpuscular Hgb Conc. 33.5 g/dL (32.0-36.0); Mean Corpuscular Volume 86.2 fL (80.0-100.0); Monocytes # (auto) 0.5 10 ^3/uL (0-1.3); Platelet Count (auto) 193 10^3/uL (140-450); Red Cell Distribution Width 16.7 % (11.8-14.3); White Blood Cell 5.4 10^3/uL (4.4-10.8)
[2024-03-18 06:10] LABS: Calcium 9.1 mg/dL (8.7-10.4); Chloride 97 mmol/L (98-107); Potassium 4.7 mmol/L (3.5-5.1); Sodium 132 mmol/L (136-145)
[2024-03-18 06:11] LABS: Anion Gap 5 (5-15); Carbon Dioxide 30 mmol/L (20-30)
[2024-03-18 06:16] LABS: Glucose 157 mg/dL (74-106)
[2024-03-18 06:17] LABS: Blood Urea Nitrogen 61 mg/dL (9-23)
[2024-03-18] MEDS: SODIUM CHL 0.9% 1000 ML BAG XX ONE (07:00)
[2024-03-18 08:30] VITALS: PULSE 63; PULSE 79; RESP 16; O2SAT 99
[2024-03-18 09:14] VITALS: BP 137/68; PULSE 76; RESP 16; TEMP 98.2; O2SAT 96
[2024-03-18 09:31] VITALS: O2SAT 97
[2024-03-18 12:50] VITALS: BP 123/57; PULSE 65; RESP 16; TEMP 97.8; O2SAT 99
== END 2024-03-18 17:50 | disposition home health service (06) | DRG 133 ==
LOC: ER 11:45 → EDBD 11:45 → TELE 18:34 → TELE-EAST 21:15
PROVIDERS: ADMIT Nurse Practitioner; ATTEND Nurse Practitioner
PROC: 5A1D70Z Performance of Urinary Filtration, Intermittent, Less than 6 Hours Per Day (ICD-10-PCS; principal; 2024-03-14)
PROC: 5A1D70Z Performance of Urinary Filtration, Intermittent, Less than 6 Hours Per Day (ICD-10-PCS; 2024-03-15)
PROC: 5A1D70Z Performance of Urinary Filtration, Intermittent, Less than 6 Hours Per Day (ICD-10-PCS; 2024-03-17)
DX: J96.21 Acute and chronic respiratory failure with hypoxia (principal); I12.0 Hypertensive chronic kidney disease with stage 5 chronic kidney disease or end stage renal disease; J81.1 Chronic pulmonary edema; D63.1 Anemia in chronic kidney disease; E83.39 Other disorders of phosphorus metabolism; E87.5 Hyperkalemia; N18.6 End stage renal disease; J98.11 Atelectasis; E11.22 Type 2 diabetes mellitus with diabetic chronic kidney disease; E11.65 Type 2 diabetes mellitus with hyperglycemia; E78.5 Hyperlipidemia, unspecified; Z99.2 Dependence on renal dialysis; Z79.899 Other long term (current) drug therapy; Z79.4 Long term (current) use of insulin
CPT/HCPCS: 36415; 70450; 71045; 80048; 80053; 80074; 81001; 83735; 83880; 85025; 87081; 90935; G0378

== ENCOUNTER 2024-03-23 19:34 | Inpatient (IN) | payer MEDICAID ==
[~2024-03-23] VITALS: Ht 121.9 cm; Wt 40.5 kg
[2024-03-23 21:22] LABS: Basophils # (auto) 0.1 10 ^3/uL (0-0.2); Eosinophils # (auto) 0.1 10 ^3/uL (0-0.8); Eosinophils % (auto) 1.7 % (0.0-7.0); Hematocrit 31.4 % (36.0-46.0); Hemoglobin 10.3 g/dL (12.2-16.2); Lymphocytes % (auto) 16.9 % (10.0-50.0); Mean Corpuscular Hemoglobin 28.6 pg (28.0-32.0); Mean Corpuscular Hgb Conc. 32.8 g/dL (32.0-36.0); Mean Corpuscular Volume 87.2 fL (80.0-100.0); Monocytes # (auto) 0.5 10 ^3/uL (0-1.3); Monocytes % (auto) 7.9 % (0.0-12.0); Neutrophils # (auto) 4.4 10 ^3/uL (1.6-8.6); Neutrophils % (auto) 72.5 % (37.0-80.0); Nucleated Red Blood Cells % 0.1 %; Platelet Count (auto) 231 10^3/uL (140-450); Red Cell Distribution Width 17.2 % (11.8-14.3); White Blood Cell 6.1 10^3/uL (4.4-10.8)
[2024-03-23 21:29] LABS: Chloride 97 mmol/L (98-107); Potassium 5.3 mmol/L (3.5-5.1); Sodium 132 mmol/L (136-145)
[2024-03-23 21:30] LABS: Anion Gap 6 (5-15); Calcium 9.9 mg/dL (8.7-10.4); Carbon Dioxide 29 mmol/L (20-30)
[2024-03-23 21:35] LABS: BUN/Creatinine Ratio 12.3 (10.0-20.0); Glucose 183 mg/dL (74-106)
[2024-03-23 21:36] LABS: Magnesium 2.8 mg/dL (1.6-2.6)
[2024-03-23 21:37] LABS: Phosphorus 3.3 mg/dL (2.4-5.1)
[2024-03-23 21:47] LABS: Blood Urea Nitrogen 80 mg/dL (9-23)
[2024-03-23 22:31] LABS: Urine Bacteria MANY /hpf (None Seen); Urine Blood 2+ /uL (Negative); Urine Clarity Ex.Turbid (Clear); Urine Color Dark-Brown (Yellow); Urine Mucus FEW (None Seen); Urine Protein, UAD 3+ (Negative); Urine Urobilinogen Normal (Negative); Urine WBC 2142 /hpf (0 - 5); Urine WBC Clumps PRESENT /hpf (None Seen); Urine pH 7.5 (5.0-9.0)
[2024-03-24] VITALS (7 sets, daily range): BP systolic 126–155; BP diastolic 61–69; PULSE 67–84; RESP 15–18; TEMP 97.5–97.9; O2SAT 0–100
[2024-03-24] MEDS: cefTRIAXone 1GM/50ML D5W 50 ML IV ONE (06:18)
[2024-03-24] MEDS ORDERED: DEXTROSE (50%) 50ML SYRG IV PRN (10:00)
[2024-03-24] MEDS ORDERED: ACETAMINOPHEN 325 MG TAB PO PRN (10:00)
[2024-03-24] MEDS ORDERED: DOCUSATE SOD 100 MG CAP PO PRN (10:00)
[2024-03-24] MEDS ORDERED: ONDANSETRON HCL 4 MG/2 ML VIAL IV PRN (10:00)
[2024-03-24] MEDS ORDERED: MORPHINE SULFATE INJ 2 MG/ml SYRG IV PRN (10:00)
[2024-03-24] MEDS ORDERED: NITROGLYCERIN 0.4 MG SL TAB SL PRN (10:00)
[2024-03-24] MEDS ORDERED: HYDROcodone-ACET 5/325MG TAB PO PRN (10:00)
[2024-03-24] MEDS: B-COMPLEX W/ C & FOLIC ACID(NEPHROVITE TAB) PO SCH (11:04)
[2024-03-24] MEDS: ATORVASTATIN 20 MG TAB PO SCH (11:05)
[2024-03-24] MEDS: DOXYCYCLINE 100 MG TAB/CAP PO SCH (11:05)
[2024-03-24] MEDS: amLODIPine BESYLATE 5 MG TAB PO SCH (11:05)
[2024-03-24] MEDS: CARVEDILOL 3.125 MG TAB PO SCH (11:06)
[2024-03-24] MEDS: InsuLIN REG 1unit/0.01ml Soln (100units/ml) SC SCH (11:30)
[2024-03-24] MEDS: ACCU-CHEK COMFORT CURVE STRIP VI SCH (11:44)
[2024-03-24] MEDS: SEVELAMER 800 MG TAB PO SCH (15:07)
[2024-03-24 16:16] LABS: INR 1.1 (0.9-1.15); Partial Thromboplastin Time 28.7 SEC (24.5-34.5); Prothrombin Time 11.6 sec (9.3-11.8)
[2024-03-25] VITALS (10 sets, daily range): BP systolic 100–153; BP diastolic 43–78; PULSE 70–77; RESP 12–18; TEMP 98.1–99.2; O2SAT 95–100
[2024-03-25 07:26] LABS: Alanine Aminotransferase 28 U/L (7-40); Alkaline Phosphatase 112 U/L (46-116); Anion Gap 6 (5-15); Aspartate Aminotransferase 28 U/L (13-40); BUN/Creatinine Ratio 9.2 (10.0-20.0); Calcium 9.3 mg/dL (8.7-10.4); Carbon Dioxide 23 mmol/L (20-30); Chloride 99 mmol/L (98-107); Glucose 81 mg/dL (74-106); Sodium 128 mmol/L (136-145)
[2024-03-25 07:27] LABS: Bilirubin, Total 0.3 mg/dL (0.2-1.0)
[2024-03-25 08:31] LABS: Blood Urea Nitrogen 68 mg/dL (9-23); Potassium 5.6 mmol/L (3.5-5.1)
[2024-03-25 11:22] LABS: Basophils # (auto) 0.1 10 ^3/uL (0-0.2); Basophils % (auto) 1.2 % (0.0-2.0); Eosinophils # (auto) 0.1 10 ^3/uL (0-0.8); Eosinophils % (auto) 2.5 % (0.0-7.0); Hematocrit 29.4 % (36.0-46.0); Hemoglobin 10.2 g/dL (12.2-16.2); Lymphocytes % (auto) 20.6 % (10.0-50.0); Mean Corpuscular Hgb Conc. 34.6 g/dL (32.0-36.0); Mean Corpuscular Volume 86.7 fL (80.0-100.0); Monocytes # (auto) 0.4 10 ^3/uL (0-1.3); Monocytes % (auto) 7.7 % (0.0-12.0); Neutrophils # (auto) 3.3 10 ^3/uL (1.6-8.6); Platelet Count (auto) 211 10^3/uL (140-450); Red Blood Cells 3.39 10^6/uL (4.0-5.20); Red Cell Distribution Width 17.5 % (11.8-14.3); White Blood Cell 4.9 10^3/uL (4.4-10.8)
[2024-03-26] VITALS (8 sets, daily range): BP systolic 114–154; BP diastolic 45–93; PULSE 64–76; RESP 17–19; TEMP 97.5–99.3; O2SAT 97–99
[2024-03-27] VITALS (11 sets, daily range): BP systolic 121–151; BP diastolic 45–66; PULSE 56–67; RESP 11–22; TEMP 97.5–99; O2SAT 92–99
[2024-03-27 06:32] LABS: Anion Gap 8 (5-15); Calcium 9.7 mg/dL (8.7-10.4); Carbon Dioxide 26 mmol/L (20-30); Chloride 100 mmol/L (98-107); Potassium 4.8 mmol/L (3.5-5.1)
[2024-03-27 06:38] LABS: BUN/Creatinine Ratio 11.1 (10.0-20.0); Blood Urea Nitrogen 69 mg/dL (9-23); Glucose 77 mg/dL (74-106)
[2024-03-27 06:41] LABS: Sodium 134 mmol/L (136-145)
[2024-03-27 06:49] LABS: Basophils # (auto) 0.1 10 ^3/uL (0-0.2); Basophils % (auto) 1.4 % (0.0-2.0); Eosinophils # (auto) 0.2 10 ^3/uL (0-0.8); Eosinophils % (auto) 3.7 % (0.0-7.0); Hematocrit 27.6 % (36.0-46.0); Hemoglobin 9.4 g/dL (12.2-16.2); Lymphocytes % (auto) 35.1 % (10.0-50.0); Mean Corpuscular Hemoglobin 29.4 pg (28.0-32.0); Mean Corpuscular Volume 86.5 fL (80.0-100.0); Monocytes # (auto) 0.7 10 ^3/uL (0-1.3); Monocytes % (auto) 12.9 % (0.0-12.0); Neutrophils # (auto) 2.6 10 ^3/uL (1.6-8.6); Neutrophils % (auto) 46.9 % (37.0-80.0); Nucleated Red Blood Cells % 0.1 %; Platelet Count (auto) 210 10^3/uL (140-450); Red Blood Cells 3.18 10^6/uL (4.0-5.20); Red Cell Distribution Width 17.6 % (11.8-14.3); White Blood Cell 5.6 10^3/uL (4.4-10.8)
[2024-03-27] MEDS: IOHEXOL 350 MG/ML 100ML IJ ONE (15:48)
[2024-03-27] MEDS: MIDAZOLAM HCL 2MG/2ML 2ml VIAL (1mg/ml) ONE (16:01)
[2024-03-27] MEDS: fentaNYL CITRATE 100 MCG/2 ML VL ONE (16:01)
[2024-03-27] MEDS: LIDOCAINE 2%HCL (LOCAL ANESTH.) INJ 20ML MDV ONE (16:02)
[2024-03-27] MEDS: HEPARIN SODIUM (PORCINE) 5000 UNITS/ML 1ML VIAL ONE (16:47)
[2024-03-28 01:00] VITALS: BP 124/58; PULSE 61; RESP 17; TEMP 97.5; O2SAT 100
[2024-03-28 05:00] VITALS: BP 93/41; PULSE 48; RESP 17; TEMP 97.1; O2SAT 99
[2024-03-28] MEDS: SODIUM CHL 0.9% 1000 ML BAG XX ONE (07:28)
[2024-03-28] MEDS ORDERED: SEVE800T20 PO ×2 (07:50)
[2024-03-28] MEDS ORDERED: CARV-214 PO (07:50)
[2024-03-28] MEDS ORDERED: DOX100T PO ×2 (07:51)
[2024-03-28 08:30] VITALS: PULSE 63; PULSE 72; RESP 14; O2SAT 97
[2024-03-28 09:00] VITALS: BP 131/62; PULSE 67; RESP 15; TEMP 98.1; O2SAT 96
[2024-03-28 13:00] VITALS: BP 130/66; PULSE 68; RESP 16; TEMP 97.8; O2SAT 99
[2024-03-28 17:00] VITALS: BP 135/61; PULSE 70; RESP 15; TEMP 98.9; O2SAT 95
[2024-03-28] MEDS ORDERED: EPOETIN ALFA-EPBX 4,000 UNIT/ML VIAL SC ONE (21:00)
== END 2024-03-28 18:00 | disposition home or self-care (01) | DRG 206 ==
LOC: ER 19:34 → TELE 03-24 09:55 → TELE-WESTW 03-24 11:47
PROVIDERS: ADMIT Nurse Practitioner; ATTEND Nurse Practitioner
PROC: 02HV33Z Insertion of Infusion Device into Superior Vena Cava, Percutaneous Approach (ICD-10-PCS; principal; 2024-03-24)
PROC: B548ZZA Ultrasonography of Superior Vena Cava, Guidance (ICD-10-PCS; 2024-03-24)
PROC: 5A1D70Z Performance of Urinary Filtration, Intermittent, Less than 6 Hours Per Day (ICD-10-PCS; 2024-03-25)
DX: T82.818A Embolism due to vascular prosthetic devices, implants and grafts, initial encounter (principal); J15.69 Pneumonia due to other Gram-negative bacteria; I12.0 Hypertensive chronic kidney disease with stage 5 chronic kidney disease or end stage renal disease; J15.9 Unspecified bacterial pneumonia; J90 Pleural effusion, not elsewhere classified; D63.1 Anemia in chronic kidney disease; N18.6 End stage renal disease; T82.7XXA Infection and inflammatory reaction due to other cardiac and vascular devices, implants and grafts, initial encounter; E11.22 Type 2 diabetes mellitus with diabetic chronic kidney disease; E11.65 Type 2 diabetes mellitus with hyperglycemia; E66.9 Obesity, unspecified; E78.5 Hyperlipidemia, unspecified; E87.5 Hyperkalemia; Y83.2 Surgical operation with anastomosis, bypass or graft as the cause of abnormal reaction of the patient, or of later complication, without mention of misadventure at the time of the procedure; N30.01 Acute cystitis with hematuria; E21.1 Secondary hyperparathyroidism, not elsewhere classified; Y92.89 Other specified places as the place of occurrence of the external cause; Z99.2 Dependence on renal dialysis
CPT/HCPCS: 36415; 71045; 80048; 80053; 81001; 82962; 83735; 84100; 85025; 85610; 85730; 86850; 86900; 86901; 87081; 90935; 96365; 96366; 99152; C1894; C2623; G0378; J1642; J1815; J2250

== ENCOUNTER 2024-05-20 20:54 | Inpatient (IN) | payer MEDICAID ==
[~2024-05-20] VITALS: Ht 149.9 cm; Wt 40.1 kg
[~2024-05-20 20:54] MED LIST changes: +DOX100T PO; -DOXY100C79 PO; -SACU1TAB PO
[2024-05-20] MEDS: DEXTROSE (50%) 50ML SYRG IV ONE (21:01)
[2024-05-20] MEDS: DEXTROSE 50% SYRINGE 50 ML IV ONE (21:05)
--- NOTE | 2024-05-20 21:15 | ED.PDOC ---
Altered Mental Status HPI Comments 76-year-old female who came to ER via EMS for hypoglycemia/altered level of consciousness. Patient hypertension, diabetes, end-stage renal disease, currently on dialysis. Was noted by family members the patient has been acting altered and confused for the past few hours, unresponsive to verbal stimuli. Blood sugar taken by paramedics on scene was 58. Upon arrival of the ER blood sugar and went down to 33. Chief Complaint: Hypo glycemia Time Seen by MD: 21:15 Primary Care Provider: UNKNOWN Reviewed Notes: Landscape Architecture Professor Notes Allergies: Coded Allergies: No Known Drug Allergy (Verified Allergy, Unknown, 01/07/22) Home Meds Active Scripts Doxycycline Monohydrate (Doxycycline Monohydrate) 100 Mg Tab, 100 MG PO BID for 7 Days, #14 TAB Prov:JOCYBLAYNESHANE M DIRECTOR OF PLAYER PERSONNEL 03/28/24 Sevelamer Hydrochloride (Sevelamer Hydrochloride) 800 Mg Tab, 1600 MG PO TIDWM for 30 Days, #180 TAB Prov:ANDREWBRADYSHANE M DIRECTOR OF PLAYER PERSONNEL 03/28/24 Carvedilol (COREG) 3.125 Mg Tab, 3.125 MG PO Q12HR for 30 Days, #60 TAB Prov:SHANE MORALES Roxana DIRECTOR OF PLAYER PERSONNEL 03/28/24 Reported Medications Ergocalciferol (Vitamin D) 50,000 Unit Cap, 1 TAB PO QWEEKLY for 28 Days, #4 02/22/24 Atorvastatin Calcium (ATORVASTATIN CALCIUM) 20 Mg Tab, 1 TAB PO DAILY 02/15/24 Amlodipine Besylate (Amlodipine Besylate) 5 Mg Tab, 1 TAB PO DAILY 02/15/24 Ferric Citrate (Auryxia) 210 Mg Tab, 2 TAB PO TID 02/15/24 B-Complex W/ C & Folic Acid (Rosalia-Karen Rx) Tab, 1 TAB PO DAILY 02/15/24 Sevelamer Hydrochloride (Sevelamer Hydrochloride) 800 Mg Tab, 2 TAB PO TID 02/15/24 Information Source: Patient, Emergency Med Personnel Mode of Arrival: EMS Severity: Unable to Care for Self, Unresponsive Timing: Hours Duration: Since onset Prehospital treatment: IVF Quality: Decreased Alertness, Change in Behavior, Confusion History of: Diabetes Past Medical History PAST MEDICAL HISTORY: DM, ESRD, High Lipids, HTN Surgical History: Denies all surgeries Surgical History (Other): Dialysis WARPER FIXER History: No Pertinent WARPER FIXER History Family History Family History: Reviewed,noncontributory to illness, Unknown Social History Smoker: Non-Smoker Alcohol: Denies ETOH Use Drugs: Denies Drug Use Lives In: Home Unable to Obtain due to: Altered Mental Status Physical Exam General Appearance: No Apparent Distress, Normal HEENT: Normal ENT Inspection, Pharynx Normal, TMs Normal Neck: Full Range of Motion, Non-Tender, Normal, Normal Inspection Respiratory: Chest Non-Tender, Lungs Clear, No Accessory Muscle Use, No Re spiratory Distress, Normal Breath Sounds Cardiovascular: No Edema, No JVD, No Murmur, No Gallop, Normal Peripheral Pulses, Regular Rate/Rhythm Breast Exam: Deferred Gastrointestinal: No Organomegaly, Non Tender, No Pulsatile Mass, Normal Bowel Sounds, Soft Genitalia: Deferred Pelvic: Deferred Rectal: Deferred Extremities: No calf tenderness, Normal capillary refill, Normal inspection, Normal range of motion, Non-tender, No pedal edema Musculoskeletal : Apperance: Normal Neurologic: Alert, judicial administrative assistant II-XII nml as Tested, No Motor Deficits, Normal Affect, Normal Mood, No Sensory Deficits Cerebellar Function: Normal Reflexes: Normal Skin: Dry, Normal Color, Warm Lymphatic: No Adenopathy Was a procedure done? Was a procedure done?: No Differential Diagnosis (ALOC) Differential Diagnosis: Dehydration, Hypoglycemia, Encephalopathy, Sepsis, CVA, Drug Overdose, ETOH Intoxication X-Ray, Labs, Meds, VS Vital Signs Date Time Temp Pulse Resp B/P (MAP) Pulse Ox O2 Delivery O2 Flow Rate FiO2 05/20/24 21:45 97.7 95 16 182/78 (112) 97 97.7 05/20/24 21:18 95 16 97 Room Air* 0 21 05/20/24 21:11 94 05/20/24 20:54 97.8 96 16 191/92 (125) 98 Lab Test 05/20/24 23:04 05/20/24 22:20 05/20/24 21:39 05/20/24 21:19 Range/Units Troponin I High Sensitivity Pending 49 *H </=34 ng/L POC Glucose 240 H 157 H 70-106 mg/dl White Blood Count 8.6 4.4-10.8 10^3/uL Red Blood Count 4.34 4.0-5.20 10^6/uL Hemoglobin 12.9 12.2-16.2 g/dL Hematocrit 40.7 36.0-46.0 % Mean Corpuscular Volume 93.7 80.0-100.0 fL Mean Corpuscular Hemoglobin 29.6 28.0-32.0 pg Mean Corpuscular Hemoglobin Concent 31.6 L 32.0-36.0 g/dL Red Cell Distribution Width 21.4 H 11.8-14.3 % Platelet Count 132 L 140-450 10^3/uL Mean Platelet Volume 7.5 6.9-10.8 fL Neutrophils (%) (Auto) 84.8 H 37.0-80.0 % Lymphocytes (%) (Auto) 10.9 10.0-50.0 % Monocytes (%) (Auto) 4.0 0.0-12.0 % Eosinophils (%) (Auto) 0.0 0.0-7.0 % Basophils (%) (Auto) 0.3 0.0-2.0 % Neutrophils # (Auto) 7.3 1.6-8.6 10 ^3/uL Lymphocytes # (Auto) 0.9 0.4-5.4 10 ^3/uL Monocytes # (Auto) 0.3 0-1.3 10 ^3/uL Eosinophils # (Auto) 0 0-0.8 10 ^3/uL Basophils # (Auto) 0 0-0.2 10 ^3/uL Nucleated Red Blood Cells 0.1 % Sodium Level 134 L 136-145 mmol/L Potassium Level 5.0 3.5-5.1 mmol/L Chloride Level 89 L 98-107 mmol/L Carbon Dioxide Level 16 L 20-31 mmol/L Anion Gap 29 H 5-15 Blood Urea Nitrogen 54 H 9-23 mg/dL Creatinine 4.33 H 0.550-1.02 mg/dL Glomerular Filtration Rate Calc 10 >90 mL/min BUN/Creatinine Ratio 12.5 10.0-20.0 Serum Glucose 287 H 74-106 mg/dL Calcium Level 11.0 H 8.7-10.4 mg/dL Phosphorus Level 1.9 L 2.4-5.1 mg/dL Magnesium Level 2.4 1.6-2.6 mg/dL Test 05/20/24 21:06 Range/Units POC Glucose 106 70-106 mg/dl Current Medications Medications (Trade) Dose Ordered Sig/Nader Route Start Time Stop Time Status Last Admin Dextrose 50 ml ONCE ONCE IV 05/20/24 21:45 05/20/24 21:46 DC 05/20/24 21:01 Time of 1ST Reevaluation: 21:13 Reevaluation 1ST: Unchanged Patient Education/Counseling: Diagnosis, Treatment Family Education/Counseling: No Family Present Departure 1 Departure Time of Disposition: 23:17 (Patient with recurrent hypoglycemia. Gave patient multiple amps of D50. Patient is still altered. We will admit patient for further workup) Impression: Primary Impression: Altered mental status Qualified Codes: R41.0 - Disorientation, unspecified Additional Impression: Hypoglycemia Disposition: ADMITTED INPATIENT Admit to: Med Surg Condition: Serious Critical Care Note Critical Care Time?: Yes (35 min-critical care time only) Critical care comment: Altered level of consciousness, hypoglycemia Authorized and Performed by: Guille Murphy MD Total critical care time: Approximately 38 minutes Due to a high probability of clinically significant, life threatening deterioration, the patient required my highest level of preparedness to intervene emergently and I personally spent this critical care time directly and personally managing the patient. This critical care time included obtaining a history; examining the patient; pulse oximetry; ordering and review of studies; arranging urgent treatment with development of a management plan; evaluation of patient's response to treatment; frequent reassessment; and, discussions with other providers. This critical care time was performed to assess and manage the high probability of imminent, life-threatening deterioration that could result in multi-organ failure. It was exclusive of separately billable procedures and treating other patients and teaching time. Please see my other sections and the rest of the note for further information on patient assessment and treatment. Stability Stability form required: No Heart Score Heart Score: Heart Score Response (Comments) Value History N/A 0 EKG N/A 0 Age N/A 0 Risk Factors N/A 0 Troponin N/A 0 Total 0 I personally scribed for GUILLE MURPHY MD ([email or web address]) on 05/20/24 at 21:15. Electronically submitted by Herbert Grover ([facility]). GUILLE MURPHY MD May 20, 2024 21:15
--- NOTE | 2024-05-20 21:17 | ECG ---
[facility] Test Date: 2024-05-20 Test Time: 21:11:14 Pat Name: SURAJ RODNEY Department: ER Room: 0223T Gender: F Animal Trainer: ARTI : 1945 Requested By: GUILLE MURPHY Order Number: [id number] Reading MD: Av Thao Measurements Intervals [place] Rate: 94 P: 85 CO: 157 QRS: -25 QRSD: 116 T: 66 QT: 409 QTc: 512 Interpretive Statements Sinus rhythm LVH with secondary repolarization abnormality Prolonged QT interval Electronically Signed On 05-26-2024 16:56:09 PST by Av Thao Please click the below link to view image of tracing.
[2024-05-20 21:18] VITALS: PULSE 95; RESP 16; O2SAT 97
[2024-05-20 21:47] LABS: Basophils # (auto) 0 10 ^3/uL (0-0.2); Basophils % (auto) 0.3 % (0.0-2.0); Eosinophils # (auto) 0 10 ^3/uL (0-0.8); Hematocrit 40.7 % (36.0-46.0); Hemoglobin 12.9 g/dL (12.2-16.2); Lymphocytes # (auto) 0.9 10 ^3/uL (0.4-5.4); Lymphocytes % (auto) 10.9 % (10.0-50.0); Mean Corpuscular Hemoglobin 29.6 pg (28.0-32.0); Mean Corpuscular Hgb Conc. 31.6 g/dL (32.0-36.0); Mean Corpuscular Volume 93.7 fL (80.0-100.0); Monocytes # (auto) 0.3 10 ^3/uL (0-1.3); Neutrophils # (auto) 7.3 10 ^3/uL (1.6-8.6); Neutrophils % (auto) 84.8 % (37.0-80.0); Nucleated Red Blood Cells % 0.1 %; Platelet Count (auto) 132 10^3/uL (140-450); Red Blood Cells 4.34 10^6/uL (4.0-5.20); Red Cell Distribution Width 21.4 % (11.8-14.3); White Blood Cell 8.6 10^3/uL (4.4-10.8)
[2024-05-20 21:55] LABS: Anion Gap 29 (5-15); Carbon Dioxide 16 mmol/L (20-31); Chloride 89 mmol/L (98-107); Sodium 134 mmol/L (136-145)
--- NOTE | 2024-05-20 22:00 | DVH ---
CHEST RADIOGRAPH Indication:weakness Technique: Single frontal view of the chest was obtained Comparison: XY CHEST PORTABLE on DOS: 03/24/24, XY CHEST PORTABLE on DOS: 03/24/24, XY CHEST XRAY 1 VIE W on DOS: 03/17/24 FINDINGS: Lines and Tubes: None Lungs: No focal consolidation. Minimal blunting of the left costophrenic angle No pneumothorax. Cardiomediastinal contours: Unremarkable Bones: No acute osseous abnormality. IMPRESSION: Trace left-sided pleural effusion with associated atelectasis.
[2024-05-20 22:01] LABS: BUN/Creatinine Ratio 12.5 (10.0-20.0); Blood Urea Nitrogen 54 mg/dL (9-23); Glucose 287 mg/dL (74-106)
[2024-05-20 22:02] LABS: Magnesium 2.4 mg/dL (1.6-2.6)
[2024-05-20 22:03] LABS: Phosphorus 1.9 mg/dL (2.4-5.1)
[2024-05-21] VITALS (7 sets, daily range): BP systolic 140–161; BP diastolic 74–120; PULSE 91–102; RESP 16–20; TEMP 98.5–99.7; O2SAT 92–99
[2024-05-21] MEDS: ONDANSETRON HCL 4 MG/2 ML VIAL IV ONE ×2 (01:07→04:13)
[2024-05-21] MEDS ORDERED: MORPHINE SULFATE INJ 2 MG/ml SYRG IV PRN (06:00)
[2024-05-21] MEDS: DEXTROSE (50%) 50ML SYRG IV ONE (06:00)
[2024-05-21] MEDS ORDERED: NITROGLYCERIN 0.4 MG SL TAB SL PRN (06:00)
[2024-05-21] MEDS: DEXTROSE 10% 1,000 ML IV ONE (06:15)
--- NOTE | 2024-05-21 09:32 | DVHHP2 ---
Admitting Diagnosis: Hypoglycemia History of Present Illness Patient is a 76-year-old female who comes to the ER today via EMS for altered level of consciousness/hypoglycemia. Patient has a history of hypertension, end-stage renal disease, diabetes, and currently on dialysis. The patient's family members noted that the patient has been acting confused and altered for the past few hours, and patient has been unresponsive to verbal stimuli. When paramedics arrived on the scene the patient's blood sugar was 58. Upon arrival to the emergency room the patient's blood sugar went down to 33. While in the emergency department the patient was evaluated by the provider, As per provider: Labs, vital signs, and imagining monitored. Patient will be admitted for further evaluation and treatment. I discussed admission with the patient/family and is in agreement to treatment plan Patient Family History: Patient reports no known family medical history. Allergies: Coded Allergies: No Known Drug Allergy (Verified Allergy, Unknown, 01/07/22) Home Meds Active Scripts Doxycycline Monohydrate (Doxycycline Monohydrate) 100 Mg Tab, 100 MG PO BID for 7 Days, #14 TAB Prov:SHANE MORALES Roxana MEDICAL GRADE SHOEMAKER 03/28/24 Sevelamer Hydrochloride (Sevelamer Hydrochloride) 800 Mg Tab, 1600 MG PO TIDWM for 30 Days, #180 TAB Prov:SHANE MORALES Roxana MEDICAL GRADE SHOEMAKER 03/28/24 Carvedilol (COREG) 3.125 Mg Tab, 3.125 MG PO Q12HR for 30 Days, #60 TAB Prov:SHANE MORALES MEDICAL GRADE SHOEMAKER 03/28/24 Reported Medications Ergocalciferol (Vitamin D) 50,000 Unit Cap, 1 TAB PO QWEEKLY for 28 Days, #4 02/22/24 Atorvastatin Calcium (ATORVASTATIN CALCIUM) 20 Mg Tab, 1 TAB PO DAILY 02/15/24 Amlodipine Besylate (Amlodipine Besylate) 5 Mg Tab, 1 TAB PO DAILY 02/15/24 Ferric Citrate (Auryxia) 210 Mg Tab, 2 TAB PO TID 02/15/24 B-Complex W/ C & Folic Acid (Rosalia-Karen Rx) Tab, 1 TAB PO DAILY 02/15/24 Sevelamer Hydrochloride (Sevelamer Hydrochloride) 800 Mg Tab, 2 TAB PO TID 02/15/24 Current Medications Current Medications Medications (Trade) Dose Ordered Sig/Nader Route PRN Reason Start Time Stop Time Status Last Admin Acetaminophen (Tylenol Tablet) 325 mg Q4HP PRN PO MILD PAIN (1-3 PAIN SCALE) 05/21/24 06:00 Acetaminophen/ Hydrocodone Bitart ([place] 5/325MG Tab) 1 tab Q4HP PRN PO MODERATE PAIN (4-6 PAIN SCALE) 05/21/24 06:00 Nitroglycerin (Ntrostat Sublingual) 0.4 mg Q5MINP PRN SL FOR CHEST PAIN 05/21/24 06:00 Morphine Sulfate 2 mg Q30M PRN IV FOR CHEST PAIN 05/21/24 06:00 Amlodipine Besylate (Norvasc Tablet) 5 mg DAILY PO 05/21/24 10:00 05/21/24 10:13 Atorvastatin Calcium (Lipitor) 20 mg DAILY PO 05/21/24 10:00 05/21/24 10:12 Multivit/Ca Carb/ B Cmplx/FA/Prenat (Nephro-Karen Tablet) 1 tab DAILY PO 05/21/24 10:00 05/21/24 10:12 Carvedilol (Coreg Tablet) 3.125 mg Q12HR PO 05/21/24 10:00 05/21/24 10:14 Sevelamer HCl (Renagel) 1,600 mg TIDWM PO 05/21/24 12:00 05/21/24 14:06 DC 05/21/24 12:39 Patient Own Medication 2 tab TIDWM PO 05/21/24 12:00 05/21/24 14:06 DC Diagnostic Test (Pha) (Accu-Chek Comfort Curve T) 1 strip Q6HR 05/21/24 12:00 05/21/24 17:50 Insulin Human Regular (InsuLIN R) Q6HR SC 05/21/24 12:00 Dextrose 50 ml UD PRN IV Blood Sugar LESS THAN 60 05/21/24 09:45 Heparin Sodium (Porcine) 5,000 units Q12HR SC 05/21/24 10:00 05/21/24 10:09 DC Pantoprazole Sodium (Protonix Tablet) 40 mg DAILY@0600 PO 05/22/24 06:00 Hydralazine HCl (Apresoline Injection) 10 mg Q6HP PRN IV SBP>150 05/21/24 19:00 05/21/24 19:42 Ondansetron HCl (Zofran) 4 mg Q4HPRN PRN IV NAUSEA / VOMITING 05/21/24 19:00 05/21/24 19:39 Review of Systems Constitutional: denies chills, denies fever, denies malaise Eyes: denies eye pain, denies vision change ENT: denies ear pain, denies headache, denies nasal congestion, denies painful swallowing, denies voice change Cardiovascular: denies chest pain, denies edema, denies orthopnea, denies palpitations, denies paroxysmal nocturnal dyspnea Respiratory: denies cough, denies shortness of breath Gastrointestinal: denies constipation, denies diarrhea, denies nausea, denies vomiting Genitourinary: denies dysuria, denies frequent urination, denies urethral discharge Musculoskeletal: denies back pain, denies joint pain, denies muscle pain Skin: denies bruising, denies itching, denies rash Neurological: denies focal weakness, denies headache, denies sensory changes Psychiatric: denies anxiety, denies depression Endocrine: denies polydipsia, denies polyuria Hematologic/Lymphatic: denies easy bleeding, denies easy bruising, denies enlarged lymph nodes Allergic/Immunologic: denies allergy, denies hives Vital Signs Vital Signs Date Time Temp Pulse Resp B/P (MAP) Pulse Ox O2 Delivery O2 Flow Rate FiO2 05/21/24 19:42 161/120 05/21/24 18:50 99.7 102 19 94 99.7 05/21/24 14:51 Room Air* 0 21 Physical Exam General Appearance: alert, no distress HEENT: EOMI, PERRLA, normal external inspect of ears, no icterus, no nasal drainage Neck: no carotid bruit, no jugular venous distention (JVD), no lymphadenopathy Chest: normal thorax Respiratory: clear to auscultation, normal air movement Cardiovascular: regular rate and rhythm, no diastolic murmur, no jugular venous distention (JVD), no rub, no systolic murmur Abdominal: soft, no hepatomegaly, no mass, no splenomegaly, no tenderness Genitourinary: grossly normal external Musculoskeletal: no joint tenderness, no swelling Extremities: normal pulses, no calf tenderness, no clubbing, no cyanosis, no edema Skin: no bruising, no jaundice, no rash Neurological: alert, No focal deficit Results Labs Test 05/21/24 17:22 05/21/24 09:57 05/21/24 00:22 05/20/24 21:39 Range/Units POC Glucose 114 H 70-106 mg/dl Hemoglobin A1c 5.2 <5.7 % A1C Troponin I High Sensitivity 44 *H </=34 ng/L White Blood Count 8.6 4.4-10.8 10^3/uL Red Blood Count 4.34 4.0-5.20 10^6/uL Hemoglobin 12.9 12.2-16.2 g/dL Hematocrit 40.7 36.0-46.0 % Mean Corpuscular Volume 93.7 80.0-100.0 fL Mean Corpuscular Hemoglobin 29.6 28.0-32.0 pg Mean Corpuscular Hemoglobin Concent 31.6 L 32.0-36.0 g/dL Red Cell Distribution Width 21.4 H 11.8-14.3 % Platelet Count 132 L 140-450 10^3/uL Mean Platelet Volume 7.5 6.9-10.8 fL Neutrophils (%) (Auto) 84.8 H 37.0-80.0 % Lymphocytes (%) (Auto) 10.9 10.0-50.0 % Monocytes (%) (Auto) 4.0 0.0-12.0 % Eosinophils (%) (Auto) 0.0 0.0-7.0 % Basophils (%) (Auto) 0.3 0.0-2.0 % Neutrophils # (Auto) 7.3 1.6-8.6 10 ^3/uL Lymphocytes # (Auto) 0.9 0.4-5.4 10 ^3/uL Monocytes # (Auto) 0.3 0-1.3 10 ^3/uL Eosinophils # (Auto) 0 0-0.8 10 ^3/uL Basophils # (Auto) 0 0-0.2 10 ^3/uL Nucleated Red Blood Cells 0.1 % Sodium Level 134 L 136-145 mmol/L Potassium Level 5.0 3.5-5.1 mmol/L Chloride Level 89 L 98-107 mmol/L Carbon Dioxide Level 16 L 20-31 mmol/L Anion Gap 29 H 5-15 Blood Urea Nitrogen 54 H 9-23 mg/dL Creatinine 4.33 H 0.550-1.02 mg/dL Glomerular Filtration Rate Calc 10 >90 mL/min BUN/Creatinine Ratio 12.5 10.0-20.0 Serum Glucose 287 H 74-106 mg/dL Calcium Level 11.0 H 8.7-10.4 mg/dL Phosphorus Level 1.9 L 2.4-5.1 mg/dL Magnesium Level 2.4 1.6-2.6 mg/dL Plan 1. Metabolic encephalopathy Monitor 2. ESRD on hemodialysis Monitor, nephrology consult, daily labs 3. Hypoglycemia with DM 2 Monitor, IV fluids with dextrose, monitor glucose, hypoglycemia treatment 4. Hypertension with ESRD Monitor 5. Elevated Troponin - (chronic at baseline) Monitor, restart home medications Plan discussed with: Patient, Other SHANE MORALES NP May 21, 2024 09:32
[2024-05-21] MEDS ORDERED: DEXTROSE (50%) 50ML SYRG IV PRN (09:45)
[2024-05-21] MEDS ORDERED: HEPARIN SODIUM (PORCINE) 5000 UNITS/ML 1ML VIAL SC SCH (10:00)
[2024-05-21] MEDS: B-COMPLEX W/ C & FOLIC ACID(NEPHROVITE TAB) PO SCH (10:12)
[2024-05-21] MEDS: ATORVASTATIN 20 MG TAB PO SCH (10:12)
[2024-05-21] MEDS: amLODIPine BESYLATE 5 MG TAB PO SCH (10:13)
[2024-05-21] MEDS: CARVEDILOL 3.125 MG TAB PO SCH (10:14)
[2024-05-21] MEDS: FERRIC CITRATE 210 MG PO SCH (12:00)
[2024-05-21] MEDS: InsuLIN REG 1unit/0.01ml Soln (100units/ml) SC SCH (12:00)
[2024-05-21] MEDS: ACCU-CHEK COMFORT CURVE STRIP VI SCH (12:26)
[2024-05-21] MEDS: SEVELAMER 800 MG TAB PO SCH (12:39)
--- NOTE | 2024-05-21 14:09 | DVHINCON2 ---
Date of service: May 21, 2024 Referring Physician Shane Morales NP Reason for Consultation END-STAGE KIDNEY DISEASE History of Present Illness This is a 78-year-old female with history of end-stage kidney disease on hemodialysis brought into the emergency room because of nausea and vomiting going on for the past week. As per the history obtained patient also has been confused and also was hypoglycemic. She is admitted for further evaluation and workup. Nephrology consulted for dialysis. Last dialysis was on Wednesday. No shortness of breath. Past Medical History End-stage kidney disease on hemodialysis Hypertension History of recurrent pleural effusion Past Surgical History AV fistula Family History: Patient reports no known family medical history. Family History Negative for Chronic kidney disease Social History Lives with family. Allergies: Coded Allergies: No Known Drug Allergy (Verified Allergy, Unknown, 01/07/22) Home Meds Active Scripts Doxycycline Monohydrate (Doxycycline Monohydrate) 100 Mg Tab, 100 MG PO BID for 7 Days, #14 TAB Prov:SHANE MORALES NP 03/28/24 Sevelamer Hydrochloride (Sevelamer Hydrochloride) 800 Mg Tab, 1600 MG PO TIDWM for 30 Days, #180 TAB Prov:SHANE MORALES NP 03/28/24 Carvedilol (COREG) 3.125 Mg Tab, 3.125 MG PO Q12HR for 30 Days, #60 TAB Prov:SHANE MORALES NP 03/28/24 Reported Medications Ergocalciferol (Vitamin D) 50,000 Unit Cap, 1 TAB PO QWEEKLY for 28 Days, #4 02/22/24 Atorvastatin Calcium (ATORVASTATIN CALCIUM) 20 Mg Tab, 1 TAB PO DAILY 02/15/24 Amlodipine Besylate (Amlodipine Besylate) 5 Mg Tab, 1 TAB PO DAILY 02/15/24 Ferric Citrate (Auryxia) 210 Mg Tab, 2 TAB PO TID 02/15/24 B-Complex W/ C & Folic Acid (Rosalia-Karen Rx) Tab, 1 TAB PO DAILY 02/15/24 Sevelamer Hydrochloride (Sevelamer Hydrochloride) 800 Mg Tab, 2 TAB PO TID 02/15/24 Current Medications Current Medications Medications (Trade) Dose Ordered Sig/Nader Route PRN Reason Start Time Stop Time Status Last Admin Acetaminophen (Tylenol Tablet) 325 mg Q4HP PRN PO MILD PAIN (1-3 PAIN SCALE) 05/21/24 06:00 Acetaminophen/ Hydrocodone Bitart ([place] 5/325MG Tab) 1 tab Q4HP PRN PO MODERATE PAIN (4-6 PAIN SCALE) 05/21/24 06:00 Nitroglycerin (Ntrostat Sublingual) 0.4 mg Q5MINP PRN SL FOR CHEST PAIN 05/21/24 06:00 Morphine Sulfate 2 mg Q30M PRN IV FOR CHEST PAIN 05/21/24 06:00 Amlodipine Besylate (Norvasc Tablet) 5 mg DAILY PO 05/21/24 10:00 05/21/24 10:13 Atorvastatin Calcium (Lipitor) 20 mg DAILY PO 05/21/24 10:00 05/21/24 10:12 Multivit/Ca Carb/ B Cmplx/FA/Prenat (Nephro-Karen Tablet) 1 tab DAILY PO 05/21/24 10:00 05/21/24 10:12 Carvedilol (Coreg Tablet) 3.125 mg Q12HR PO 05/21/24 10:00 05/21/24 10:14 Sevelamer HCl (Renagel) 1,600 mg TIDWM PO 05/21/24 12:00 05/21/24 12:39 Patient Own Medication 2 tab TIDWM PO 05/21/24 12:00 Diagnostic Test (Pha) (Accu-Chek Comfort Curve T) 1 strip Q6HR 05/21/24 12:00 05/21/24 12:26 Insulin Human Regular (InsuLIN R) Q6HR SC 05/21/24 12:00 Dextrose 50 ml UD PRN IV Blood Sugar LESS THAN 60 05/21/24 09:45 Heparin Sodium (Porcine) 5,000 units Q12HR SC 05/21/24 10:00 05/21/24 10:09 DC Pantoprazole Sodium (Protonix Tablet) 40 mg DAILY@0600 PO 05/22/24 06:00 Review of Systems Twelve point review of system negative except as stated in HPI Vital Signs Vital Signs Date Time Temp Pulse Resp B/P (MAP) Pulse Ox O2 Delivery O2 Flow Rate FiO2 05/21/24 13:21 94 05/21/24 12:22 98.9 20 167/77 (107) 99 98.9 05/21/24 07:51 Room Air* 0 21 Physical Exam Elderly woman in no acute distress HEENT: Normocephalic, no JVD Lungs: Bilateral good air entry CVS: S1, S2 regular rate rhythm Abdomen: Soft, bowel sounds present POULTRY PICKING MACHINE TENDER: No focal deficits Extremities no edema Labs/Diagnostic Data Labs Test 05/21/24 12:25 05/21/24 09:57 05/21/24 00:22 05/20/24 21:39 Range/Units POC Glucose 128 H 70-106 mg/dl Hemoglobin A1c 5.2 <5.7 % A1C Troponin I High Sensitivity 44 *H </=34 ng/L White Blood Count 8.6 4.4-10.8 10^3/uL Red Blood Count 4.34 4.0-5.20 10^6/uL Hemoglobin 12.9 12.2-16.2 g/dL Hematocrit 40.7 36.0-46.0 % Mean Corpuscular Volume 93.7 80.0-100.0 fL Mean Corpuscular Hemoglobin 29.6 28.0-32.0 pg Mean Corpuscular Hemoglobin Concent 31.6 L 32.0-36.0 g/dL Red Cell Distribution Width 21.4 H 11.8-14.3 % Platelet Count 132 L 140-450 10^3/uL Mean Platelet Volume 7.5 6.9-10.8 fL Neutrophils (%) (Auto) 84.8 H 37.0-80.0 % Lymphocytes (%) (Auto) 10.9 10.0-50.0 % Monocytes (%) (Auto) 4.0 0.0-12.0 % Eosinophils (%) (Auto) 0.0 0.0-7.0 % Basophils (%) (Auto) 0.3 0.0-2.0 % Neutrophils # (Auto) 7.3 1.6-8.6 10 ^3/uL Lymphocytes # (Auto) 0.9 0.4-5.4 10 ^3/uL Monocytes # (Auto) 0.3 0-1.3 10 ^3/uL Eosinophils # (Auto) 0 0-0.8 10 ^3/uL Basophils # (Auto) 0 0-0.2 10 ^3/uL Nucleated Red Blood Cells 0.1 % Sodium Level 134 L 136-145 mmol/L Potassium Level 5.0 3.5-5.1 mmol/L Chloride Level 89 L 98-107 mmol/L Carbon Dioxide Level 16 L 20-31 mmol/L Anion Gap 29 H 5-15 Blood Urea Nitrogen 54 H 9-23 mg/dL Creatinine 4.33 H 0.550-1.02 mg/dL Glomerular Filtration Rate Calc 10 >90 mL/min BUN/Creatinine Ratio 12.5 10.0-20.0 Serum Glucose 287 H 74-106 mg/dL Calcium Level 11.0 H 8.7-10.4 mg/dL Phosphorus Level 1.9 L 2.4-5.1 mg/dL Magnesium Level 2.4 1.6-2.6 mg/dL Assessment End-stage kidney disease on hemodialysis Persistent nausea and vomiting with poor oral intake Hypoglycemia secondary to above Metabolic encephalopathy Hypertension Hypercalcemia Hypophosphatemia Plan/Recommendation Hemodialysis tomorrow with ultrafiltration of 1.5 L. Discontinue sevelamer and Auryxia in light of hypophosphatemia Blood sugar monitoring Blood pressure control Plan discussed with: Daughter SHANE LOPEZ MD May 21, 2024 14:09
[2024-05-21] MEDS: ONDANSETRON HCL 4 MG/2 ML VIAL IV PRN (19:39)
[2024-05-21] MEDS: hydrALAZINE HCL 20 MG/ML VL IV PRN (19:42)
[2024-05-22 01:00] VITALS: BP 141/86; PULSE 91; RESP 18; TEMP 99.2; O2SAT 96
[2024-05-22 05:00] VITALS: BP 144/82; PULSE 94; RESP 18; TEMP 99; O2SAT 96
[2024-05-22 05:09] LABS: Basophils # (auto) 0.1 10 ^3/uL (0-0.2); Basophils % (auto) 0.4 % (0.0-2.0); Eosinophils # (auto) 0 10 ^3/uL (0-0.8); Hematocrit 38.5 % (36.0-46.0); Hemoglobin 12.2 g/dL (12.2-16.2); Lymphocytes # (auto) 1.5 10 ^3/uL (0.4-5.4); Lymphocytes % (auto) 11.2 % (10.0-50.0); Mean Corpuscular Hgb Conc. 31.6 g/dL (32.0-36.0); Mean Corpuscular Volume 91.6 fL (80.0-100.0); Monocytes # (auto) 0.9 10 ^3/uL (0-1.3); Monocytes % (auto) 6.5 % (0.0-12.0); Neutrophils # (auto) 10.9 10 ^3/uL (1.6-8.6); Neutrophils % (auto) 81.9 % (37.0-80.0); Nucleated Red Blood Cells % 0.1 %; Platelet Count (auto) 141 10^3/uL (140-450); White Blood Cell 13.3 10^3/uL (4.4-10.8)
[2024-05-22] MEDS: PANTOPRAZOLE 40 MG TAB PO SCH (05:34)
[2024-05-22 05:43] LABS: Alanine Aminotransferase 27 U/L (7-40); Alkaline Phosphatase 98 U/L (46-116); Anion Gap 28 (5-15); BUN/Creatinine Ratio 12.8 (10.0-20.0); Carbon Dioxide 20 mmol/L (20-31); Chloride 85 mmol/L (98-107); Glucose 81 mg/dL (74-106); Sodium 133 mmol/L (136-145)
[2024-05-22 05:44] LABS: Albumin 3.5 g/dL (3.2-4.8); Aspartate Aminotransferase 27 U/L (13-40)
[2024-05-22 05:45] LABS: Bilirubin, Total 0.4 mg/dL (0.2-1.0); Total Protein 6.6 g/dL (5.7-8.2)
[2024-05-22 06:01] LABS: Blood Urea Nitrogen 75 mg/dL (9-23)
[2024-05-22] MEDS: SODIUM ZIRCONIUM CYCL 10 GM PAK PO ONE (06:43)
[2024-05-22] MEDS ORDERED: SODIUM CHL 0.9% 1000 ML BAG XX ONE (07:00)
--- NOTE | 2024-05-22 07:54 | DVHPN2 ---
Progress Note - Dictate Date Seen: May 22, 2024 Medical Necessity Reason Pt with a Central, PICC or Fol: No vital signs Vital Sign Date Time Temp Pulse Resp B/P (MAP) Pulse Ox O2 Delivery O2 Flow Rate FiO2 05/22/24 05:00 99.0 94 18 144/82 (102) 96 99.0 05/21/24 20:00 Room Air* 0 21 Total Intake and Output 05/21/24 05/21/24 05/22/24 15:00 23:00 07:00 Intake Total 75 ml 300 ml Balance 75 ml 300 ml medications Current Medications Medications Dose Ordered Sig/Nader Route Start Time Stop Time Status Last Admin Dose Admin Acetaminophen 325 mg Q4HP PRN PO 05/21/24 06:00 Acetaminophen/ Hydrocodone Bitart 1 tab Q4HP PRN PO 05/21/24 06:00 Nitroglycerin 0.4 mg Q5MINP PRN SL 05/21/24 06:00 Morphine Sulfate 2 mg Q30M PRN IV 05/21/24 06:00 Amlodipine Besylate 5 mg DAILY PO 05/21/24 10:00 05/21/24 10:13 5 MG Atorvastatin Calcium 20 mg DAILY PO 05/21/24 10:00 05/21/24 10:12 20 MG Multivit/Ca Carb/ B Cmplx/FA/Prenat 1 tab DAILY PO 05/21/24 10:00 05/21/24 10:12 1 TAB Carvedilol 3.125 mg Q12HR PO 05/21/24 10:00 05/21/24 21:42 3.125 MG Diagnostic Test (Pha) 1 strip Q6HR 05/21/24 12:00 05/22/24 05:40 1 STRIP Insulin Human Regular Q6HR SC 05/21/24 12:00 Dextrose 50 ml UD PRN IV 05/21/24 09:45 Pantoprazole Sodium 40 mg DAILY@0600 PO 05/22/24 06:00 05/22/24 05:34 40 MG Hydralazine HCl 10 mg Q6HP PRN IV 05/21/24 19:00 05/21/24 19:42 10 MG Ondansetron HCl 4 mg Q4HPRN PRN IV 05/21/24 19:00 05/21/24 19:39 4 MG objective General Appearance: alert, no distress HEENT: EOMI, PERRLA, normal external inspect of ears, no icterus, no nasal drainage Neck: no carotid bruit, no jugular venous distention (JVD), no lymphadenopathy Chest: normal thorax Respiratory: clear to auscultation, normal air movement Cardiovascular: regular rate and rhythm, no diastolic murmur, no jugular venous distention (JVD), no rub, no systolic murmur Abdominal: soft, no hepatomegaly, no mass, no splenomegaly, no tenderness Genitourinary: grossly normal external Musculoskeletal: no joint tenderness, no swelling Extremities: normal pulses, no calf tenderness, no clubbing, no cyanosis, no edema Skin: no bruising, no jaundice, no rash Neurological: alert, No focal deficit laboratory and microbiology Laboratory Tests 05/22/24 04:32 Test 05/22/24 04:32 Range/Units Serum Glucose 81 74-106 mg/dL Problem List 1. Metabolic encephalopathy Monitor 2. ESRD on hemodialysis Monitor, nephrology consult, daily labs 3. Hypoglycemia with DM 2 Monitor, IV fluids with dextrose, monitor glucose, hypoglycemia treatment 4. Hypertension with ESRD Monitor 5. Elevated Troponin - (chronic at baseline) Monitor, restart home medications Assessment/Plan Subjective Patient is awake and alert. Objective Patient was seen by commercial green building designer at bedside. Patient did inform commercial green building designer that she was having signs of chest pain. Patient has mild leukocytosis. She is scheduled for hemodialysis today. Potassium is 6.0. Per patient's family she has a metabolic encephalopathy. Patient had a mildly elevated temp on admission of 99.2. Plan Continue IV antibiotics for metabolic encephalopathy and leukocytosis. Continue current treatment. Continue antibiotics. Monitor neurostatus. Continue hemodialysis per nephrology. Plan discussed with: Patient, Other SHANE MORALES CAT DRIVER May 22, 2024 07:54
[2024-05-22 08:15] VITALS: PULSE 79
[2024-05-22 09:00] VITALS: BP 156/63; PULSE 92; RESP 18; TEMP 98; O2SAT 99
[2024-05-22] MEDS: cefTRIAXone 1GM/50ML D5W 50 ML IV SCH (12:45)
--- NOTE | 2024-05-22 13:36 | DVHPN2 ---
Progress Note - Dictate Date Seen: May 22, 2024 Has the PT tested + for MRSA If YES, has PT been informed?: No Medical Necessity Reason Pt with a Central, PICC or Fol: No Subjective Daughters at bedside. The patient complains of chest pain. Her nausea seems to be resolved she tolerated diet. Per daughter's patient had nausea for two weeks. vital signs Vital Sign Date Time Temp Pulse Resp B/P (MAP) Pulse Ox O2 Delivery O2 Flow Rate FiO2 05/22/24 09:36 92 156/63 05/22/24 09:00 98.0 18 99 98.0 05/21/24 20:00 Room Air* 0 21 Total Intake and Output 05/21/24 05/21/24 05/22/24 15:00 23:00 07:00 Intake Total 75 ml 300 ml Balance 75 ml 300 ml medications Current Medications Medications Dose Ordered Sig/Nader Route Start Time Stop Time Status Last Admin Dose Admin Acetaminophen 325 mg Q4HP PRN PO 05/21/24 06:00 Acetaminophen/ Hydrocodone Bitart 1 tab Q4HP PRN PO 05/21/24 06:00 Nitroglycerin 0.4 mg Q5MINP PRN SL 05/21/24 06:00 Morphine Sulfate 2 mg Q30M PRN IV 05/21/24 06:00 Amlodipine Besylate 5 mg DAILY PO 05/21/24 10:00 05/22/24 09:36 5 MG Atorvastatin Calcium 20 mg DAILY PO 05/21/24 10:00 05/22/24 09:35 20 MG Multivit/Ca Carb/ B Cmplx/FA/Prenat 1 tab DAILY PO 05/21/24 10:00 05/22/24 09:35 1 TAB Carvedilol 3.125 mg Q12HR PO 05/21/24 10:00 05/22/24 09:36 3.125 MG Diagnostic Test (Pha) 1 strip Q6HR 05/21/24 12:00 05/22/24 05:40 1 STRIP Insulin Human Regular Q6HR SC 05/21/24 12:00 Dextrose 50 ml UD PRN IV 05/21/24 09:45 Pantoprazole Sodium 40 mg DAILY@0600 PO 05/22/24 06:00 05/22/24 05:34 40 MG Hydralazine HCl 10 mg Q6HP PRN IV 05/21/24 19:00 05/21/24 19:42 10 MG Ondansetron HCl 4 mg Q4HPRN PRN IV 05/21/24 19:00 05/21/24 19:39 4 MG Ceftriaxone Sodium 50 ml @ 100 mls/hr DAILY@09 IV 05/22/24 12:45 objective HEENT: No evidence of JVD, no oral ulcers. Pulmonary: Lungs are clear on auscultation bilaterally Cardiovascular S1-S2, no S3 or S4 Abdomen: Bowel sounds positive, soft no rebound tenderness Skin: No rash Neurological: Alert, confused no focal weakness laboratory and microbiology Laboratory Tests 05/22/24 04:32 Test 05/22/24 04:32 Range/Units Serum Glucose 81 74-106 mg/dL Assessment/Plan Assessment: End-stage kidney disease on hemodialysis Persistent nausea and vomiting with poor oral intake Chest pain Hypoglycemia secondary to above Metabolic encephalopathy Hypertension Hypercalcemia Hypophosphatemia Recommendation: Patient received Lokelma this morning. Hemodialysis today Cardiology consult, GI consult. Discontinue sevelamer and Auryxia in light of hypophosphatemia Blood sugar monitoring Blood pressure control Thank you very much for allowing us to participate in the care of this patient. Plan discussed with: Patient, Daughter FIGUEROA VELASQUEZ MD May 22, 2024 13:36
[2024-05-22] MEDS ORDERED: METF-370 PO (14:52)
[2024-05-22] MEDS: HYDROcodone-ACET 5/325MG TAB PO PRN (15:48)
[2024-05-22] MEDS ORDERED: ALBUMIN 25% 100 ML IV ONE (18:45)
[2024-05-22 20:00] VITALS: PULSE 71
[2024-05-22 21:00] VITALS: BP 127/46; PULSE 79; RESP 17; TEMP 97.7; O2SAT 100
[2024-05-23] VITALS (7 sets, daily range): BP systolic 111–139; BP diastolic 50–60; PULSE 62–76; RESP 16–19; TEMP 97.7–98.2; O2SAT 92–95
[2024-05-23 07:17] LABS: Calcium 9.4 mg/dL (8.7-10.4); Chloride 94 mmol/L (98-107); Potassium 4.1 mmol/L (3.5-5.1); Sodium 135 mmol/L (136-145)
[2024-05-23 07:19] LABS: Anion Gap 9 (5-15); Carbon Dioxide 32 mmol/L (20-31)
[2024-05-23 07:24] LABS: BUN/Creatinine Ratio 13.2 (10.0-20.0); Blood Urea Nitrogen 51 mg/dL (9-23); Glucose 83 mg/dL (74-106)
[2024-05-23 08:33] LABS: Basophils # (auto) 0 10 ^3/uL (0-0.2); Basophils % (auto) 0.2 % (0.0-2.0); Eosinophils # (auto) 0 10 ^3/uL (0-0.8); Eosinophils % (auto) 0.5 % (0.0-7.0); Lymphocytes # (auto) 1.1 10 ^3/uL (0.4-5.4); Lymphocytes % (auto) 11.6 % (10.0-50.0); Mean Corpuscular Hemoglobin 29.8 pg (28.0-32.0); Mean Corpuscular Hgb Conc. 33.2 g/dL (32.0-36.0); Mean Corpuscular Volume 89.6 fL (80.0-100.0); Monocytes # (auto) 0.7 10 ^3/uL (0-1.3); Neutrophils # (auto) 7.3 10 ^3/uL (1.6-8.6); Neutrophils % (auto) 79.7 % (37.0-80.0); Platelet Count (auto) 83 10^3/uL (140-450); Red Blood Cells 3.69 10^6/uL (4.0-5.20); Red Cell Distribution Width 21.9 % (11.8-14.3); White Blood Cell 9.2 10^3/uL (4.4-10.8)
--- NOTE | 2024-05-23 10:02 | DVHPN2 ---
Progress Note - Dictate Date Seen: May 23, 2024 Has the PT tested + for MRSA If YES, has PT been informed?: No Medical Necessity Reason Pt with a Central, PICC or Fol: No vital signs Vital Sign Date Time Temp Pulse Resp B/P (MAP) Pulse Ox O2 Delivery O2 Flow Rate FiO2 05/23/24 09:00 98.0 76 16 130/52 (78) 94 98.0 05/22/24 20:00 Room Air* 0 21 Total Intake and Output 05/22/24 05/22/24 05/23/24 15:00 23:00 07:00 Intake Total 450 ml Balance 450 ml medications Current Medications Medications Dose Ordered Sig/Nader Route Start Time Stop Time Status Last Admin Dose Admin Acetaminophen 325 mg Q4HP PRN PO 05/21/24 06:00 Acetaminophen/ Hydrocodone Bitart 1 tab Q4HP PRN PO 05/21/24 06:00 05/22/24 15:48 1 TAB Nitroglycerin 0.4 mg Q5MINP PRN SL 05/21/24 06:00 Morphine Sulfate 2 mg Q30M PRN IV 05/21/24 06:00 Amlodipine Besylate 5 mg DAILY PO 05/21/24 10:00 05/22/24 09:36 5 MG Atorvastatin Calcium 20 mg DAILY PO 05/21/24 10:00 05/22/24 09:35 20 MG Multivit/Ca Carb/ B Cmplx/FA/Prenat 1 tab DAILY PO 05/21/24 10:00 05/22/24 09:35 1 TAB Carvedilol 3.125 mg Q12HR PO 05/21/24 10:00 05/22/24 23:01 3.125 MG Diagnostic Test (Pha) 1 strip Q6HR 05/21/24 12:00 05/23/24 05:51 1 STRIP Insulin Human Regular Q6HR SC 05/21/24 12:00 Dextrose 50 ml UD PRN IV 05/21/24 09:45 Pantoprazole Sodium 40 mg DAILY@0600 PO 05/22/24 06:00 05/23/24 05:51 40 MG Hydralazine HCl 10 mg Q6HP PRN IV 05/21/24 19:00 05/21/24 19:42 10 MG Ondansetron HCl 4 mg Q4HPRN PRN IV 05/21/24 19:00 05/21/24 19:39 4 MG Ceftriaxone Sodium 50 ml @ 100 mls/hr DAILY@09 IV 05/22/24 12:45 objective General Appearance: alert, no distress HEENT: EOMI, PERRLA, normal external inspect of ears, no icterus, no nasal drainage Neck: no carotid bruit, no jugular venous distention (JVD), no lymphadenopathy Chest: normal thorax Respiratory: clear to auscultation, normal air movement Cardiovascular: regular rate and rhythm, no diastolic murmur, no jugular venous distention (JVD), no rub, no systolic murmur Abdominal: soft, no hepatomegaly, no mass, no splenomegaly, no tenderness Genitourinary: grossly normal external Musculoskeletal: no joint tenderness, no swelling Extremities: normal pulses, no calf tenderness, no clubbing, no cyanosis, no edema Skin: no bruising, no jaundice, no rash Neurological: alert, No focal deficit laboratory and microbiology Laboratory Tests 05/23/24 08:04 05/23/24 05:50 Test 05/23/24 05:50 Range/Units Serum Glucose 83 74-106 mg/dL Problem List 1. Metabolic encephalopathy Monitor 2. ESRD on hemodialysis Monitor, nephrology consult, daily labs 3. Hypoglycemia with DM 2 Monitor, IV fluids with dextrose, monitor glucose, hypoglycemia treatment 4. Hypertension with ESRD Monitor 5. Elevated Troponin - (chronic at baseline) Monitor, restart home medications Assessment/Plan Subjective Patient is awake and alert. Objective Patient's mentation appears to be much improved today. She no longer complains of chest pain. Troponin levels are downtrending. Cardiology was consulted. Most likely troponin levels were elevated due to hyperkalemia. Patient is end-stage renal disease on hemodialysis. WBC is now within normal limits. Patient is no longer febrile. She was started on Rocephin. Metabolic encephalopathy most likely related to sepsis of unknown origin. Plan Continue current treatment. Continue hemodialysis per nephrology. Plan discussed with: Patient, Other SHANE MORALES NP May 23, 2024 10:02
--- NOTE | 2024-05-23 10:12 | DVHINCON2 ---
Date of service: May 23, 2024 History of Present Illness HPI Patient is a 78-year-old female who originally presented on May 20, 2024 for altered level of consciousness. Reportedly, the family found her altered and she was brought to the hospital. EMS found her blood sugar of 58 and in emergency room the blood sugar was 33. There has been some question about chest discomfort. Reportedly, patient did have some nausea and vomiting for around 1 week prior to presentation which also included some poor oral intake. It is of note that the patient is poor historian. She does speak Vietnamese but is only alert oriented x2. She looks cachectic. Cardiology is involved for cardiac aspects of care. Patient is known to us from previous admission in February 2024. At that time, patient was found to have systolic heart failure, nonischemic cardiomyopathy. At that time, cardiac catheterization was performed which revealed nonobstructive coronary artery disease and reduced LVEF. Patient was deemed at that point not to be competent (secondary to dementia) to manage LifeVest. Patient has a baseline mildly elevated/flat troponin. Patient has baseline limited functional capacity. She does have history of end-stage renal disease and is on hemodialysis. Home Meds Active Scripts Sevelamer Hydrochloride (Sevelamer Hydrochloride) 800 Mg Tab, 1600 MG PO TIDWM for 30 Days, #180 TAB Prov:JOCYSHANE CISNEROS Roxana BESSEMER CONVERTER BLOWER 03/28/24 Carvedilol (COREG) 3.125 Mg Tab, 3.125 MG PO Q12HR for 30 Days, #60 TAB Prov:HSANE MORALES Roxana BESSEMER CONVERTER BLOWER 03/28/24 Reported Medications Metformin Hydrochloride (Metformin Hcl) 500 Mg Tab, 1 TAB PO DAILY for 90 Days, #90 05/22/24 Ergocalciferol (Vitamin D) 50,000 Unit Cap, 1 TAB PO QWEEKLY for 28 Days, #4 02/22/24 Atorvastatin Calcium (ATORVASTATIN CALCIUM) 20 Mg Tab, 1 TAB PO DAILY 02/15/24 Amlodipine Besylate (Amlodipine Besylate) 5 Mg Tab, 1 TAB PO DAILY 02/15/24 Ferric Citrate (Auryxia) 210 Mg Tab, 2 TAB PO TID 02/15/24 B-Complex W/ C & Folic Acid (Rosalia-Karen Rx) Tab, 1 TAB PO DAILY 02/15/24 Past Medical History Others Past medical history reportedly includes end-stage renal disease on hemodialysis, diabetes mellitus, hypertension, hyperlipidemia, systolic heart failure, nonischemic cardiomyopathy, old CVA, repeated pleural effusion and status post repeated pleural tap by Pulmonary, history of pneumothorax, status post AV fistula creation and also history of CVA Family History Poor historian and can not provide history herself. Patient Family History: Patient reports no known family medical history. Smoker: No Hx (Negative) Review of Systems Comments Poor historian and can not provide detailed information herself. Information was obtained by reviewing the chart. Fourteen point review of system was performed. Skin: No symptom reported Hemotologic/Lymphatic: No symptom reported All Other Systems Gross dementia. H&P Exam Vital Signs Vital Signs Date Time Temp Pulse Resp B/P (MAP) Pulse Ox O2 Delivery O2 Flow Rate FiO2 05/23/24 09:00 98.0 76 16 130/52 (78) 94 98.0 05/22/24 20:00 Room Air* 0 21 General Appeara: Cachetic Neck Exam: Normal inspection Eye Exam: bilateral eye PERRL Mouth: Normal Inspection Pulmonary/Respiratory: Rhonci Cardiovascular/Chest: Regular rate, Systolic murmur Peripheral Pulses: 2+ carotid (R), 2+ carotid (L), 2+ femoral (R), 2+ femoral (L), 2+ dorsalis pedis (R), 2+ dorsalis pedis (L), 2+ Radial (R), 2+ Radial (L) Abdominal Exam: Normal bowel sounds, Soft Labs/Xrays Labs Test 05/23/24 08:04 05/23/24 05:50 05/23/24 05:47 05/22/24 17:48 Range/Units White Blood Count 9.2 # 4.4-10.8 10^3/uL Red Blood Count 3.69 L 4.0-5.20 10^6/uL Hemoglobin 11.0 L 12.2-16.2 g/dL Hematocrit 33.0 #L 36.0-46.0 % Mean Corpuscular Volume 89.6 80.0-100.0 fL Mean Corpuscular Hemoglobin 29.8 28.0-32.0 pg Mean Corpuscular Hemoglobin Concent 33.2 32.0-36.0 g/dL Red Cell Distribution Width 21.9 H 11.8-14.3 % Platelet Count 83 L 140-450 10^3/uL Mean Platelet Volume 7.6 6.9-10.8 fL Neutrophils (%) (Auto) 79.7 37.0-80.0 % Lymphocytes (%) (Auto) 11.6 10.0-50.0 % Monocytes (%) (Auto) 8.0 0.0-12.0 % Eosinophils (%) (Auto) 0.5 0.0-7.0 % Basophils (%) (Auto) 0.2 0.0-2.0 % Neutrophils # (Auto) 7.3 1.6-8.6 10 ^3/uL Lymphocytes # (Auto) 1.1 0.4-5.4 10 ^3/uL Monocytes # (Auto) 0.7 0-1.3 10 ^3/uL Eosinophils # (Auto) 0 0-0.8 10 ^3/uL Basophils # (Auto) 0 0-0.2 10 ^3/uL Nucleated Red Blood Cells 0.0 % Sodium Level 135 L 136-145 mmol/L Potassium Level 4.1 3.5-5.1 mmol/L Chloride Level 94 L 98-107 mmol/L Carbon Dioxide Level 32 H 20-31 mmol/L Anion Gap 9 5-15 Blood Urea Nitrogen 51 #H 9-23 mg/dL Creatinine 3.87 #H 0.550-1.02 mg/dL Glomerular Filtration Rate Calc 11 >90 mL/min BUN/Creatinine Ratio 13.2 10.0-20.0 Serum Glucose 83 74-106 mg/dL Calcium Level 9.4 8.7-10.4 mg/dL POC Glucose 91 70-106 mg/dl Troponin I High Sensitivity 67 *H </=34 ng/L Test 05/22/24 04:32 05/21/24 09:57 05/20/24 21:39 Range/Units Total Bilirubin 0.4 0.2-1.0 mg/dL Aspartate Amino Transferase (AST) 27 13-40 U/L Alanine Aminotransferase (ALT) 27 7-40 U/L Alkaline Phosphatase 98 46-116 U/L Total Protein 6.6 5.7-8.2 g/dL Albumin 3.5 3.2-4.8 g/dL Hemoglobin A1c 5.2 <5.7 % A1C Phosphorus Level 1.9 L 2.4-5.1 mg/dL Magnesium Level 2.4 1.6-2.6 mg/dL Assessment/Plan Plan Patient is a 78-year-old female who originally presented on May 20, 2024 for altered level of consciousness. Reportedly, the family found her altered and she was brought to the hospital. EMS found her blood sugar of 58 and in emergency room the blood sugar was 33. There has been some question about chest discomfort. Reportedly, patient did have some nausea and vomiting for around 1 week prior to presentation which also included some poor oral intake. It is of note that the patient is poor historian. She does speak Vietnamese but is only alert oriented x2. She looks cachectic. Cardiology is involved for cardiac aspects of care. Patient is known to us from previous admission in February 2024. At that time, patient was found to have systolic heart failure, nonischemic cardiomyopathy. At that time, cardiac catheterization was performed which revealed nonobstructive coronary artery disease and reduced LVEF. Patient was deemed at that point not to be competent (secondary to dementia) to manage LifeVest. Patient has a baseline mildly elevated/flat troponin. Patient has baseline limited functional capacity. She does have history of end-stage renal disease and is on hemodialysis. Lying flat in bed. No JVD. Mucous is pink and wet. No carotid bruit. Poor air entry in lungs. Cardiac: Regular. Systolic murmur 2/6 at apex and diastolic murmur 2/6 at the base is heard. Abdomen is soft. Bowel sound is positive. There is no gross mass. Extremities do not reveal edema. Dorsalis pedis 2+ bilateral Past medical history reportedly includes end-stage renal disease on hemodialysis, diabetes mellitus, hypertension, hyperlipidemia, systolic heart failure, nonischemic cardiomyopathy, old CVA, repeated pleural effusion and stat us post repeated pleural tap by Pulmonary, history of pneumothorax, status post AV fistula creation and also history of CVA Echocardiogram of February 15, 2024 reported ejection fraction of 20%, pseudonormal LV filling, [id number] aortic insufficiency/mitral regurgitation/tricuspid regurgitation, large pleural effusion and right ventricular systolic pressure of 62 mmHg. Left heart catheterization of February 25, 2024 that reported nonobstructive coronary artery disease, and ischemic cardiomyopathy and ejection fraction of 25% WBC: 8.6 - 13.3 - 9.2 Creatinine: 4.33 - 5.88 - 3.87 Potassium: 5.0 - 6.0 - 4.1 Calcium: 11.0 - 11.0 - 9.4 Troponin (I sensitive): 49 - 48 - 44 - 71 - 71 - 67 Chest x-ray revealed: FINDINGS: Lines and Tubes: None Lungs: No focal consolidation. Minimal blunting of the left costophrenic angle No pneumothorax. Cardiomediastinal contours: Unremarkable Bones: No acute osseous abnormality. IMPRESSION: Trace left-sided pleural effusion with associated atelectasis. EKG revealed sinus rhythm, poor R-wave progression, PVC and nonspecific ST-T changes Tele reveals sinus rhythm Patient is a 78-year-old female who presented with altered level of consciousness. She was found to have hypoglycemia on arrival. Calcium was also elevated on arrival. Metabolic encephalopathy could explain the patient's presentation. Patient has a baseline of component of dementia. There has been some poor oral intake/nausea prior to presentation. There has been some question about chest discomfort. Serial high sensitive troponin has remained flat and minimally elevated. Patient has a history of nonischemic cardiomyopathy and systolic heart failure. Minimally abnormal/flat troponin is considered to reflect demand ischemia in a patient with systolic heart failure and nonischemic cardiomyopathy. No further ischemic workup is indicated at this point. Encephalopathy, metabolic Hypoglycemia Hypercalcemia Dementia Increased troponin, flat, demand physiology Systolic heart failure, history of Diabetes mellitus End-stage renal disease on hemodialysis Old CVA Nonobstructive coronary artery disease. Nonischemic cardiomyopathy. Cardiac suggestion for management: Manage on telemetry Follow up electrolytes and kidney function tests and correct abnormalities HD as per Nephrology Patient has a history of nonischemic cardiomyopathy and systolic heart failure. Minimally abnormal/flat troponin is considered to reflect demand ischemia in a patient with systolic heart failure and nonischemic cardiomyopathy. No further ischemic workup is indicated at this point. Evaluation and management of reported hypoglycemia/hypercalcemia as per primary team/nephrology Guideline directed medical therapy for systolic heart failure (Carvedilol/Entre sto) Request for repeat Echocardiogram Long-term monitor can be arranged as outpatient Further evaluation and management depends on the above and clinical course A total of 75 minutes was spent reviewing the patient record, examining the patient, making a diagnostic and therapeutic plan, discussing this plan with medical personnel, following up on diagnostic studies and following the patient for clinical stability excluding any and all procedures. At least 50% of this time was spent in direct, [id number] contact. Thank you for allowing me to participate in this patient's care. Further recommendations will depend on patient's clinical course. Please do not hesitate to contact me if you have any questions or concerns. This medical document was created using electronic medical record system with [employer] computerized dictation system. Although this document has been carefully reviewed, there may still be some phonetic and typographical errors. These areas are purely typographical due to the imperfection of the software programs, and do not reflect any compromise in the patient's medical care. Plan discussed with: Other (nurse) CAREY MCKEON MD May 23, 2024 10:12
--- NOTE | 2024-05-23 10:40 | DVHPN2 ---
Progress Note - Dictate Date Seen: May 23, 2024 Has the PT tested + for MRSA If YES, has PT been informed?: No Medical Necessity Reason Pt with a Central, PICC or Fol: No Subjective The patient is comfortably sleeping this morning with no complaints. Hemodialysis completed yesterday. vital signs Vital Sign Date Time Temp Pulse Resp B/P (MAP) Pulse Ox O2 Delivery O2 Flow Rate FiO2 05/23/24 09:00 98.0 76 16 130/52 (78) 94 98.0 05/22/24 20:00 Room Air* 0 21 Total Intake and Output 05/22/24 05/22/24 05/23/24 15:00 23:00 07:00 Intake Total 450 ml Balance 450 ml medications Current Medications Medications Dose Ordered Sig/Nader Route Start Time Stop Time Status Last Admin Dose Admin Acetaminophen 325 mg Q4HP PRN PO 05/21/24 06:00 Acetaminophen/ Hydrocodone Bitart 1 tab Q4HP PRN PO 05/21/24 06:00 05/22/24 15:48 1 TAB Nitroglycerin 0.4 mg Q5MINP PRN SL 05/21/24 06:00 Morphine Sulfate 2 mg Q30M PRN IV 05/21/24 06:00 Amlodipine Besylate 5 mg DAILY PO 05/21/24 10:00 05/22/24 09:36 5 MG Atorvastatin Calcium 20 mg DAILY PO 05/21/24 10:00 05/22/24 09:35 20 MG Multivit/Ca Carb/ B Cmplx/FA/Prenat 1 tab DAILY PO 05/21/24 10:00 05/22/24 09:35 1 TAB Carvedilol 3.125 mg Q12HR PO 05/21/24 10:00 05/22/24 23:01 3.125 MG Diagnostic Test (Pha) 1 strip Q6HR 05/21/24 12:00 05/23/24 05:51 1 STRIP Insulin Human Regular Q6HR SC 05/21/24 12:00 Dextrose 50 ml UD PRN IV 05/21/24 09:45 Pantoprazole Sodium 40 mg DAILY@0600 PO 05/22/24 06:00 05/23/24 05:51 40 MG Hydralazine HCl 10 mg Q6HP PRN IV 05/21/24 19:00 05/21/24 19:42 10 MG Ondansetron HCl 4 mg Q4HPRN PRN IV 05/21/24 19:00 05/21/24 19:39 4 MG Ceftriaxone Sodium 50 ml @ 100 mls/hr DAILY@09 IV 05/22/24 12:45 objective HEENT: No evidence of JVD, no oral ulcers. Pulmonary: Lungs are clear on auscultation bilaterally Cardiovascular S1-S2, no S3 or S4 Abdomen: Bowel sounds positive, soft no rebound tenderness Skin: No rash Neurological: Alert, confused no focal weakness laboratory and microbiology Laboratory Tests 05/23/24 08:04 05/23/24 05:50 Test 05/23/24 05:50 Range/Units Serum Glucose 83 74-106 mg/dL Assessment/Plan Assessment: End-stage kidney disease on hemodialysis Persistent nausea and vomiting with poor oral intake Chest pain Hypoglycemia secondary to above Metabolic encephalopathy Hypertension Hypercalcemia Hypophosphatemia Recommendation: Hemodialysis Wednesday. Cardiology consult, GI consult appreciated. Discontinue sevelamer and Auryxia in light of hypophosphatemia Blood sugar monitoring Blood pressure control Thank you very much for allowing us to participate in the care of this patient. Plan discussed with: Patient FIGUEROA VELASQUEZ MD May 23, 2024 10:40
--- NOTE | 2024-05-23 12:51 | ECG ---
[facility] Test Date: 2024-05-21 Test Time: 08:34:54 Pat Name: SURAJ RODNEY Department: ED Room: 0223T B Gender: F Commercial Field Inspector: MR LAOB: 1945 Requested By: GUILLE MURPHY Order Number: [id number] Reading MD: Av Thao Measurements Intervals [place] Rate: 90 P: 72 FL: 153 QRS: -23 QRSD: 108 T: -23 QT: 376 QTc: 460 Interpretive Statements Sinus rhythm Ventricular premature complex Abnormal R-wave progression, late transition Left ventricular hypertrophy Nonspecific T abnormalities, diffuse leads Electronically Signed On 05-26-2024 16:56:54 PST by Av Thao Please click the below link to view image of tracing.
[2024-05-23] MEDS: ACETAMINOPHEN 325 MG TAB PO PRN (18:35)
[2024-05-23] MEDS: SACUBITRIL-VALSARTAN 24mg/26mg TAB PO SCH (21:57)
[2024-05-24] VITALS (8 sets, daily range): BP systolic 101–136; BP diastolic 52–64; PULSE 56–64; RESP 14–17; TEMP 97.7–98.7; O2SAT 93–98
[2024-05-24] MEDS ORDERED: SODIUM CHL 0.9% 1000 ML BAG XX ONE (07:00)
--- NOTE | 2024-05-24 07:00 | DVHPN2 ---
Progress Note - Dictate Date Seen: May 24, 2024 Has the PT tested + for MRSA If YES, has PT been informed?: No Medical Necessity Reason Pt with a Central, PICC or Fol: No vital signs Vital Sign Date Time Temp Pulse Resp B/P (MAP) Pulse Ox O2 Delivery O2 Flow Rate FiO2 05/24/24 05:00 98.1 56 17 128/54 (78) 97 98.1 05/23/24 20:00 Room Air* 0 21 Total Intake and Output 05/23/24 05/23/24 05/24/24 15:00 23:00 07:00 Intake Total 250 ml 450 ml Output Total 0 ml Balance 250 ml 450 ml medications Current Medications Medications Dose Ordered Sig/Nader Route Start Time Stop Time Status Last Admin Dose Admin Acetaminophen 325 mg Q4HP PRN PO 05/21/24 06:00 05/24/24 00:31 325 MG Acetaminophen/ Hydrocodone Bitart 1 tab Q4HP PRN PO 05/21/24 06:00 05/22/24 15:48 1 TAB Nitroglycerin 0.4 mg Q5MINP PRN SL 05/21/24 06:00 Morphine Sulfate 2 mg Q30M PRN IV 05/21/24 06:00 Atorvastatin Calcium 20 mg DAILY PO 05/21/24 10:00 05/23/24 11:06 20 MG Multivit/Ca Carb/ B Cmplx/FA/Prenat 1 tab DAILY PO 05/21/24 10:00 05/23/24 11:07 1 TAB Carvedilol 3.125 mg Q12HR PO 05/21/24 10:00 05/23/24 21:54 3.125 MG Diagnostic Test (Pha) 1 strip Q6HR 05/21/24 12:00 05/24/24 05:59 1 STRIP Insulin Human Regular Q6HR SC 05/21/24 12:00 05/24/24 00:35 2 UNITS Dextrose 50 ml UD PRN IV 05/21/24 09:45 Pantoprazole Sodium 40 mg DAILY@0600 PO 05/22/24 06:00 05/24/24 06:00 40 MG Hydralazine HCl 10 mg Q6HP PRN IV 05/21/24 19:00 05/21/24 19:42 10 MG Ondansetron HCl 4 mg Q4HPRN PRN IV 05/21/24 19:00 05/21/24 19:39 4 MG Ceftriaxone Sodium 50 ml @ 100 mls/hr DAILY@09 IV 05/22/24 12:45 05/23/24 18:35 100 MLS/HR Sacubitril/ Valsartan 1 tab BID PO 05/23/24 22:00 05/23/24 21:57 1 TAB laboratory and microbiology Laboratory Tests 05/23/24 08:04 05/23/24 05:50 Test 05/23/24 05:50 Range/Units Serum Glucose 83 74-106 mg/dL Assessment/Plan Patient is a 78-year-old female who originally presented on May 20, 2024 for altered level of consciousness. Reportedly, the family found her altered and she was brought to the hospital. EMS found her blood sugar of 58 and in emergency room the blood sugar was 33. There has been some question about chest discomfort. Reportedly, patient did have some nausea and vomiting for around 1 week prior to presentation which also included some poor oral intake. It is of note that the patient is poor historian. She does speak Macedonian but is only alert oriented x2. She looks cachectic. Cardiology is involved for cardiac aspects of care. Patient is known to us from previous admission in February 2024. At that time, patient was found to have systolic heart failure, nonischemic cardiomyopathy. At that time, cardiac catheterization was performed which revealed nonobstructive coronary artery disease and reduced LVEF. Patient was deemed at that point not to be competent (secondary to dementia) to manage LifeVest. Patient has a baseline mildly elevated/flat troponin. Patient has baseline limited functional capacity. She does have history of end-stage renal disease and is on hemodialysis. Lying flat in bed. No JVD. Mucous is pink and wet. No carotid bruit. Poor air entry in lungs. Cardiac: Regular. Systolic murmur 2/6 at apex and diastolic murmur 2/6 at the base is heard. Abdomen is soft. Bowel sound is positive. There is no gross mass. Extremities do not reveal edema. Dorsalis pedis 2+ bilateral Past medical history reportedly includes end-stage renal disease on hemodialysis, diabetes mellitus, hypertension, hyperlipidemia, systolic heart failure, nonischemic cardiomyopathy, old CVA, repeated pleural effusion and status post repeated pleural tap by Pulmonary, history of pneumothorax, status post AV fistula creation and also history of CVA Echocardiogram of February 15, 2024 reported ejection fraction of 20%, pseudonormal LV filling, [id number] aortic insufficiency/mitral regurgitation/tricuspid regurgitation, large pleural effusion and right ventricular systolic pressure of 62 mmHg. Left heart catheterization of February 25, 2024 that reported nonobstructive coronary artery disease, and ischemic cardiomyopathy and ejection fraction of 25% WBC: 8.6 - 13.3 - 9.2 Creatinine: 4.33 - 5.88 - 3.87 Potassium: 5.0 - 6.0 - 4.1 Calcium: 11.0 - 11.0 - 9.4 Troponin (I sensitive): 49 - 48 - 44 - 71 - 71 - 67 Chest x-ray revealed: FINDINGS: Lines and Tubes: None Lungs: No focal consolidation. Minimal blunting of the left costophrenic angle No pneumothorax. Cardiomediastinal contours: Unremarkable Bones: No acute osseous abnormality. IMPRESSION: Trace left-sided pleural effusion with associated atelectasis. EKG revealed sinus rhythm, poor R-wave progression, PVC and nonspecific ST-T changes Tele reveals sinus rhythm Echocardiogram revealed: Dilated 4 chambers. Left ventricle: Mild concentric left ventricular hypertrophy was seen. Left ventricle was mildly dilated. LVEF was 35-40%. Mild diffuse hypokinesis of left ventricle was seen. Pseudo normal LV filling was observed. Right ventricle was dilated with reduced systolic function. Both atria were mildly dilated. Aortic valve: Aortic valve was trileaflet. Aortic sclerosis with no stenosis was seen. There was no aortic insufficiency. There was mild mitral regurgitation. There was moderate tricuspid regurgitation. There was trivial pulmonary valve insufficiency. Right ventricular systolic pressure was assessed at 55 mm Hg. There was no pericardial effusion. Patient is a 78-year-old female who presented with altered level of consciousness. She was found to have hypoglycemia on arrival. Calcium was also elevated on arrival. Metabolic encephalopathy could explain the patient's presentation. Patient has a baseline of component of dementia. There has been some poor oral intake/nausea prior to presentation. There has been some question about chest discomfort. Serial high sensitive troponin has remained flat and minimally elevated. Patient has a history of nonischemic cardiomyopathy and systolic heart failure. Minimally abnormal/flat troponin is considered to reflect demand ischemia in a patient with systolic heart failure and nonischemic cardiomyopathy. No further ischemic workup is indicated at this point. Compared to February 2024, echo reveals some improvement of LV systolic function (from 20% to 35%). Continuation of GDMT is suggested. No indication for life vest at this point. Encephalopathy, metabolic Hypoglycemia Hypercalcemia Dementia Increased troponin, flat, demand physiology Systolic heart failure, history of Diabetes mellitus End-stage renal disease on hemodialysis Old CVA Nonobstructive coronary artery disease. Nonischemic cardiomyopathy. Cardiac suggestion for management: Manage on telemetry Follow up electrolytes and kidney function tests and correct abnormalities HD as per Nephrology Patient has a history of nonischemic cardiomyopathy and systolic heart failure. Minimally abnormal/flat troponin is considered to reflect demand ischemia in a patient with systolic heart failure and nonischemic cardiomyopathy. No further ischemic workup is indicated at this point. Compared to February 2024, echo reveals some improvement of LV systolic function (from 20% to 35%). Continuation of GDMT is suggested. No indication for life vest at this point. Evaluation and management of reported hypoglycemia/hypercalcemia as per primary team/nephrology Guideline directed medical therapy for systolic heart failure (Carvedilol/Entresto) Long-term monitor can be arranged as outpatient Further evaluation and management depends on the above and clinical course A total of 55 minutes was spent reviewing the patient record, examining the patient, making a diagnostic and therapeutic plan, discussing this plan with medical personnel, following up on diagnostic studies and following the patient for clinical stability excluding any and all procedures. At least 50% of this time was spent in direct, [id number] contact. Thank you for allowing me to participate in this patient's care. Further recommendations will depend on patient's clinical course. Please do not hesitate to contact me if you have any questions or concerns. This medical document was created using electronic medical record system with [employer] computerized dictation system. Although this document has been carefully reviewed, there may still be some phonetic and typographical errors. These areas are purely typographical due to the imperfection of the software programs, and do not reflect any compromise in the patient's medical care. Plan discussed with: Other (nurse) CAREY MCKEON MD May 24, 2024 07:00
--- NOTE | 2024-05-24 07:06 | DVHSR ---
APPROVED REPORT EXAM: Two-dimensional and M-mode echocardiogram with Doppler and color Doppler. Blood Pressure: 122/54 mmHg INDICATION Provider's orders RISK FACTORS Height: 4'11", Weight: 78 DIMENSIONS LVDd5.0 (3.8-5.7cm)LA (2D)3.8 (1.9-4.0cm)Aortic Root3.1 (2.0-3.7cm) LVDs4.2 (2.5-4.0cm)LA (MM) (1.9-4.0cm)Aortic Cusp Exc1.2 (1.5-2.0cm) EF (%) 35.0 (55-70%)Rt. Atrium3.7 (1.9-4.0cm)Asc. Aorta cm IVSd1.2 (0.7-1.1cm)RV (D)3.5 (1.8-2.4cm) PWd1.0 (0.7-1.1cm) Mitral Valve MitralMitral Stenosis E wave1.25m/sMV Mean GR.mmHg A wave1.08m/sMV Peak GR.mmHg E/A ratio1.22D MVAcm2 DECEL [id number] 1/2 Timems Aortic Valve Aortic ValveAortic Stenosis V10.91m/Mo Mean GR.6mmHg V21.70m/Mo Peak GR.12mmHg LVOT Diameter1.8 (1.8-2.4cm)Doppler AVA1.36cm2 Pulmonic Valve V21.10m/s Tricuspid Valve TR Velocity3.44m/s [id number] Other Information Technically limited study due to body habitus, patient altered and uncooperative. Conclusion Dilated 4 chambers. Left ventricle: Mild concentric left ventricular hypertrophy was seen. Left ventricle was mildly di lated. LVEF was 35-40%. Mild diffuse hypokinesis of left ventricle was seen. Pseudo normal LV fill ing was observed. Right ventricle was dilated with reduced systolic function. Both atria were mildly dilated. Aortic valve: Aortic valve was trileaflet. Aortic sclerosis with no stenosis was seen. There was n o aortic insufficiency. There was mild mitral regurgitation. There was moderate tricuspid regurgita tion. There was trivial pulmonary valve insufficiency. Right ventricular systolic pressure was assessed at 55 mm Hg. There was no pericardial effusion.
[2024-05-24 12:06] LABS: Chloride 99 mmol/L (98-107); Potassium 2.8 mmol/L (3.5-5.1); Sodium 141 mmol/L (136-145)
[2024-05-24 12:07] LABS: Anion Gap 7 (5-15); Calcium 9.1 mg/dL (8.7-10.4); Carbon Dioxide 35 mmol/L (20-31)
[2024-05-24 12:12] LABS: BUN/Creatinine Ratio 10.7 (10.0-20.0); Glucose 102 mg/dL (74-106)
[2024-05-24 12:17] LABS: Blood Urea Nitrogen 24 mg/dL (9-23)
--- NOTE | 2024-05-24 12:20 | DVHPN2 ---
Progress Note - Dictate Date Seen: May 24, 2024 Has the PT tested + for MRSA If YES, has PT been informed?: No Medical Necessity Reason Pt with a Central, PICC or Fol: No Subjective The patient is comfortably sleeping this morning with no complaints. Hemodialysis completed yesterday. vital signs Vital Sign Date Time Temp Pulse Resp B/P (MAP) Pulse Ox O2 Delivery O2 Flow Rate FiO2 05/24/24 09:00 97.7 64 16 110/61 (77) 93 97.7 05/24/24 08:15 Room Air* 0 21 Total Intake and Output 05/23/24 05/23/24 05/24/24 15:00 23:00 07:00 Intake Total 250 ml 450 ml Output Total 0 ml Balance 250 ml 450 ml medications Current Medications Medications Dose Ordered Sig/Nader Route Start Time Stop Time Status Last Admin Dose Admin Acetaminophen 325 mg Q4HP PRN PO 05/21/24 06:00 05/24/24 00:31 325 MG Acetaminophen/ Hydrocodone Bitart 1 tab Q4HP PRN PO 05/21/24 06:00 05/22/24 15:48 1 TAB Nitroglycerin 0.4 mg Q5MINP PRN SL 05/21/24 06:00 Morphine Sulfate 2 mg Q30M PRN IV 05/21/24 06:00 Atorvastatin Calcium 20 mg DAILY PO 05/21/24 10:00 05/24/24 10:59 20 MG Multivit/Ca Carb/ B Cmplx/FA/Prenat 1 tab DAILY PO 05/21/24 10:00 05/24/24 10:58 1 TAB Carvedilol 3.125 mg Q12HR PO 05/21/24 10:00 05/23/24 21:54 3.125 MG Diagnostic Test (Pha) 1 strip Q6HR 05/21/24 12:00 05/24/24 05:59 1 STRIP Insulin Human Regular Q6HR SC 05/21/24 12:00 05/24/24 00:35 2 UNITS Dextrose 50 ml UD PRN IV 05/21/24 09:45 Pantoprazole Sodium 40 mg DAILY@0600 PO 05/22/24 06:00 05/24/24 06:00 40 MG Hydralazine HCl 10 mg Q6HP PRN IV 05/21/24 19:00 05/21/24 19:42 10 MG Ondansetron HCl 4 mg Q4HPRN PRN IV 05/21/24 19:00 05/21/24 19:39 4 MG Ceftriaxone Sodium 50 ml @ 100 mls/hr DAILY@09 IV 05/22/24 12:45 05/23/24 18:35 100 MLS/HR Sacubitril/ Valsartan 1 tab BID PO 05/23/24 22:00 05/23/24 21:57 1 TAB objective HEENT: No evidence of JVD, no oral ulcers. Pulmonary: Lungs are clear on auscultation bilaterally Cardiovascular S1-S2, no S3 or S4 Abdomen: Bowel sounds positive, soft no rebound tenderness Skin: No rash Neurological: Alert, confused no focal weakness laboratory and microbiology Laboratory Tests 05/24/24 11:43 05/23/24 08:04 Test 05/24/24 11:43 Range/Units Serum Glucose 102 74-106 mg/dL Assessment/Plan Assessment: End-stage kidney disease on hemodialysis Persistent nausea and vomiting with poor oral intake Chest pain Hypoglycemia secondary to above Metabolic encephalopathy Hypertension Hypercalcemia Hypophosphatemia Recommendation: Hemodialysis Wednesday. Cardiology consult, GI consult appreciated. Discontinue sevelamer and Auryxia in light of hypophosphatemia Blood sugar monitoring Blood pressure control Day to discharge home from Nephrology perspective Thank you very much for allowing us to participate in the care of this patient. Plan discussed with: Patient FIGUEROA VELASQUEZ MD May 24, 2024 12:20
--- NOTE | 2024-05-24 17:34 | DVHPN2 ---
Progress Note - Dictate Date Seen: May 24, 2024 Has the PT tested + for MRSA If YES, has PT been informed?: No Medical Necessity Reason Pt with a Central, PICC or Fol: No vital signs Vital Sign Date Time Temp Pulse Resp B/P (MAP) Pulse Ox O2 Delivery O2 Flow Rate FiO2 05/24/24 17:00 98.0 57 14 111/52 (71) 95 98.0 05/24/24 08:15 Room Air* 0 21 Total Intake and Output 05/23/24 05/23/24 05/24/24 15:00 23:00 07:00 Intake Total 250 ml 450 ml Output Total 0 ml Balance 250 ml 450 ml medications Current Medications Medications Dose Ordered Sig/Nader Route Start Time Stop Time Status Last Admin Dose Admin Acetaminophen 325 mg Q4HP PRN PO 05/21/24 06:00 05/24/24 00:31 325 MG Acetaminophen/ Hydrocodone Bitart 1 tab Q4HP PRN PO 05/21/24 06:00 05/22/24 15:48 1 TAB Nitroglycerin 0.4 mg Q5MINP PRN SL 05/21/24 06:00 Morphine Sulfate 2 mg Q30M PRN IV 05/21/24 06:00 Atorvastatin Calcium 20 mg DAILY PO 05/21/24 10:00 05/24/24 10:59 20 MG Multivit/Ca Carb/ B Cmplx/FA/Prenat 1 tab DAILY PO 05/21/24 10:00 05/24/24 10:58 1 TAB Carvedilol 3.125 mg Q12HR PO 05/21/24 10:00 05/23/24 21:54 3.125 MG Diagnostic Test (Pha) 1 strip Q6HR 05/21/24 12:00 05/24/24 12:00 1 STRIP Insulin Human Regular Q6HR SC 05/21/24 12:00 05/24/24 00:35 2 UNITS Dextrose 50 ml UD PRN IV 05/21/24 09:45 Pantoprazole Sodium 40 mg DAILY@0600 PO 05/22/24 06:00 05/24/24 06:00 40 MG Hydralazine HCl 10 mg Q6HP PRN IV 05/21/24 19:00 05/21/24 19:42 10 MG Ondansetron HCl 4 mg Q4HPRN PRN IV 05/21/24 19:00 05/21/24 19:39 4 MG Ceftriaxone Sodium 50 ml @ 100 mls/hr DAILY@09 IV 05/22/24 12:45 05/23/24 18:35 100 MLS/HR Sacubitril/ Valsartan 1 tab BID PO 05/23/24 22:00 05/23/24 21:57 1 TAB objective General Appearance: alert, no distress HEENT: EOMI, PERRLA, normal external inspect of ears, no icterus, no nasal drainage Neck: no carotid bruit, no jugular venous distention (JVD), no lymphadenopathy Chest: normal thorax Respiratory: clear to auscultation, normal air movement Cardiovascular: regular rate and rhythm, no diastolic murmur, no jugular venous distention (JVD), no rub, no systolic murmur Abdominal: soft, no hepatomegaly, no mass, no splenomegaly, no tenderness Genitourinary: grossly normal external Musculoskeletal: no joint tenderness, no swelling Extremities: normal pulses, no calf tenderness, no clubbing, no cyanosis, no edema Skin: no bruising, no jaundice, no rash Neurological: alert, No focal deficit laboratory and microbiology Laboratory Tests 05/24/24 16:12 05/24/24 11:43 05/23/24 08:04 Test 05/24/24 11:43 Range/Units Serum Glucose 102 74-106 mg/dL Problem List 1. Metabolic encephalopathy Monitor 2. ESRD on hemodialysis Monitor, nephrology consult, daily labs 3. Hypoglycemia with DM 2 Monitor, IV fluids with dextrose, monitor glucose, hypoglycemia treatment 4. Hypertension with ESRD Monitor 5. Elevated Troponin - (chronic at baseline) Monitor, restart home medications Assessment/Plan Subjective: Patient is awake and alert. Objective: Patient is primarily [place]-speaking. Patient was admitted for metabolic encephalopathy. She has end-stage renal disease on hemodialysis and had complaints of chest pain. Troponin levels were mildly elevated but are now trending down. Patient was seen by cardiology, and no acute coronary syndrome was identified. She was also evaluated by her reliability specialist. Hyperkalemia on admission may have contributed to her chest pain and elevated troponin levels. Patient is complaining of a sore throat. Plan: Obtain rapid strep swab, and influenza, and COVID testing. Continue current treatment. Patient had mild leukocytosis, which improved with IV antibiotics. Continue PT evaluation. Dietary Evaluation Review Comments: Continue current plan of care Expected Outcomes/Goals: F/U in 3-5 days Plan discussed with: Patient, Other SHANE MORALES OFFICE TECHNOLOGY INSTRUCTOR May 24, 2024 17:34
[2024-05-24] MEDS: POTASSIUM CHL 20 Meq TABLET PO ONE (19:54)
--- NOTE | 2024-05-24 21:49 | DVHINCON2 ---
Date of service: May 24, [address] Quintanilla Reason for Consultation Abdominal pain nausea vomiting History of Present Illness This [age]-year-old female with history of hypertension end-stage renal disease admitted to the hospital with complaints of nausea vomiting for about a week. Denies hematemesis melena patient also was found to be slightly hypoglycemic. Patient has got end-stage renal disease with hypertension and renal dialysis. Past Medical History No history of any ulcer disease no history of any pancreatitis was gallbladder problems End-stage renal disease hypertension Past Surgical History AV fistula Family History: Patient reports no known family medical history. Family History Noncontributory Social History Denies smoking or drinking Allergies: Coded Allergies: No Known Drug Allergy (Verified Allergy, Unknown, 01/07/22) Home Meds Active Scripts Sevelamer Hydrochloride (Sevelamer Hydrochloride) 800 Mg Tab, 1600 MG PO TIDWM for 30 Days, #180 TAB Prov:SHANE MORALES NURSING CONSULTANT 03/28/24 Carvedilol (COREG) 3.125 Mg Tab, 3.125 MG PO Q12HR for 30 Days, #60 TAB Prov:SHANE MORALES NURSING CONSULTANT 03/28/24 Reported Medications Metformin Hydrochloride (Metformin Hcl) 500 Mg Tab, 1 TAB PO DAILY for 90 Days, #90 05/22/24 Ergocalciferol (Vitamin D) 50,000 Unit Cap, 1 TAB PO QWEEKLY for 28 Days, #4 02/22/24 Atorvastatin Calcium (ATORVASTATIN CALCIUM) 20 Mg Tab, 1 TAB PO DAILY 02/15/24 Amlodipine Besylate (Amlodipine Besylate) 5 Mg Tab, 1 TAB PO DAILY 02/15/24 Ferric Citrate (Auryxia) 210 Mg Tab, 2 TAB PO TID 02/15/24 B-Complex W/ C & Folic Acid ([facility]osal[facility] Rx) Tab, 1 TAB PO DAILY 02/15/24 Current Medications Current Medications Medications (Trade) Dose Ordered Sig/Nader Route PRN Reason Start Time Stop Time Status Last Admin Sacubitril/ Valsartan (Entresto 24-26 Mg tab) 1 tab BID PO 05/23/24 22:00 05/24/24 21:27 Review of Systems Noncontributory Vital Signs Vital Signs Date Time Temp Pulse Resp B/P (MAP) Pulse Ox O2 Delivery O2 Flow Rate FiO2 11/20/24 21:31 64 136/64 05/24/24 20:00 Room Air* 0 21 05/24/24 17:00 98.0 14 95 98.0 Physical Exam Originally built and nourished female in no acute distress vital signs stable HEENT examination no pallor Or icterus Lungs clear Cardiovascular unremarkable abdomen soft nontender no masses bowel sounds Extremities no edema Labs/Diagnostic Data Labs Test 05/24/24 20:01 05/24/24 16:12 05/24/24 11:43 05/23/24 08:04 Range/Units POC Glucose 225 H 70-106 mg/dl Potassium Level 3.2 L 3.5-5.1 mmol/L Sodium Level 141 # 136-145 mmol/L Chloride Level 99 98-107 mmol/L Carbon Dioxide Level 35 H 20-31 mmol/L Anion Gap 7 5-15 Blood Urea Nitrogen 24 #H 9-23 mg/dL Creatinine 2.24 #H 0.550-1.02 mg/dL Glomerular Filtration Rate Calc 22 >90 mL/min BUN/Creatinine Ratio 10.7 10.0-20.0 Serum Glucose 102 74-106 mg/dL Calcium Level 9.1 8.7-10.4 mg/dL White Blood Count 9.2 # 4.4-10.8 10^3/uL Red Blood Count 3.69 L 4.0-5.20 10^6/uL Hemoglobin 11.0 L 12.2-16.2 g/dL Hematocrit 33.0 #L 36.0-46.0 % Mean Corpuscular Volume 89.6 80.0-100.0 fL Mean Corpuscular Hemoglobin 29.8 28.0-32.0 pg Mean Corpuscular Hemoglobin Concent 33.2 32.0-36.0 g/dL Red Cell Distribution Width 21.9 H 11.8-14.3 % Platelet Count 83 L 140-450 10^3/uL Mean Platelet Volume 7.6 6.9-10.8 fL Neutrophils (%) (Auto) 79.7 37.0-80.0 % Lymphocytes (%) (Auto) 11.6 10.0-50.0 % Monocytes (%) (Auto) 8.0 0.0-12.0 % Eosinophils (%) (Auto) 0.5 0.0-7.0 % Basophils (%) (Auto) 0.2 0.0-2.0 % Neutrophils # (Auto) 7.3 1.6-8.6 10 ^3/uL Lymphocytes # (Auto) 1.1 0.4-5.4 10 ^3/uL Monocytes # (Auto) 0.7 0-1.3 10 ^3/uL Eosinophils # (Auto) 0 0-0.8 10 ^3/uL Basophils # (Auto) 0 0-0.2 10 ^3/uL Nucleated Red Blood Cells 0.0 % Test 05/22/24 17:48 05/22/24 04:32 05/21/24 09:57 05/20/24 21:39 Range/Units Troponin I High Sensitivity 67 *H </=34 ng/L Total Bilirubin 0.4 0.2-1.0 mg/dL Aspartate Amino Transferase (AST) 27 13-40 U/L Alanine Aminotransferase (ALT) 27 7-40 U/L Alkaline Phosphatase 98 46-116 U/L Total Protein 6.6 5.7-8.2 g/dL Albumin 3.5 3.2-4.8 g/dL Hemoglobin A1c 5.2 <5.7 % A1C Phosphorus Level 1.9 L 2.4-5.1 mg/dL Magnesium Level 2.4 1.6-2.6 mg/dL Assessment 78-year-old female with end-stage renal disease admitted with abdominal pain mild in the epigastrium with nausea anorexia vomiting. Patient has got end- stage renal disease with hypertension Patient's symptoms are much better now and patient is feeling better without any more nausea vomiting now Possible assessment gastritis rule out ulcers or GERD Plan/Recommendation We will treat with PPIs or Pepcid and see the response Symptoms persist may need further workup including EGD evaluation etc. but for now we will recommend conservative treatment Thank you Dr. Yvette Perez discussed with: Patient GAL MIRANDA MD May 24, 2024 21:48
[2024-05-25 01:00] VITALS: BP 130/70; PULSE 64; RESP 16; TEMP 98.7; O2SAT 95
[2024-05-25 05:18] VITALS: BP 122/66; PULSE 68; RESP 16; TEMP 98.7; O2SAT 100
[2024-05-25 06:05] LABS: Anion Gap 9 (5-15); Carbon Dioxide 30 mmol/L (20-31); Chloride 97 mmol/L (98-107); Potassium 4.1 mmol/L (3.5-5.1)
[2024-05-25 06:06] LABS: Calcium 8.9 mg/dL (8.7-10.4)
[2024-05-25 06:11] LABS: BUN/Creatinine Ratio 10.6 (10.0-20.0); Glucose 97 mg/dL (74-106)
[2024-05-25 06:19] LABS: Blood Urea Nitrogen 36 mg/dL (9-23); Sodium 136 mmol/L (136-145)
[2024-05-25 07:11] LABS: Rapid Influenza A Negative (Negative); Rapid Influenza B Negative (Negative)
[2024-05-25 07:28] LABS: COVID19 ANTIGEN SOFIA FIA NEGATIVE (NEGATIVE)
--- NOTE | 2024-05-25 07:38 | DVHPN2 ---
Progress Note - Dictate Date Seen: May 25, 2024 Has the PT tested + for MRSA If YES, has PT been informed?: No Medical Necessity Reason Pt with a Central, PICC or Fol: No vital signs Vital Sign Date Time Temp Pulse Resp B/P (MAP) Pulse Ox O2 Delivery O2 Flow Rate FiO2 05/25/24 05:18 98.7 68 16 122/66 (84) 100 98.7 05/24/24 20:00 Room Air* 0 21 Total Intake and Output 05/24/24 05/24/24 05/25/24 15:00 23:00 07:00 Intake Total 800 ml 700 ml Balance 800 ml 700 ml medications Current Medications Medications Dose Ordered Sig/Nader Route Start Time Stop Time Status Last Admin Dose Admin Acetaminophen 325 mg Q4HP PRN PO 05/21/24 06:00 05/24/24 00:31 325 MG Acetaminophen/ Hydrocodone Bitart 1 tab Q4HP PRN PO 05/21/24 06:00 05/22/24 15:48 1 TAB Nitroglycerin 0.4 mg Q5MINP PRN SL 05/21/24 06:00 Morphine Sulfate 2 mg Q30M PRN IV 05/21/24 06:00 Atorvastatin Calcium 20 mg DAILY PO 05/21/24 10:00 05/24/24 10:59 20 MG Multivit/Ca Carb/ B Cmplx/FA/Prenat 1 tab DAILY PO 05/21/24 10:00 05/24/24 10:58 1 TAB Carvedilol 3.125 mg Q12HR PO 05/21/24 10:00 05/24/24 21:31 3.125 MG Diagnostic Test (Pha) 1 strip Q6HR 05/21/24 12:00 05/25/24 05:18 1 STRIP Insulin Human Regular Q6HR SC 05/21/24 12:00 05/25/24 00:37 2 UNITS Dextrose 50 ml UD PRN IV 05/21/24 09:45 Pantoprazole Sodium 40 mg DAILY@0600 PO 05/22/24 06:00 05/25/24 05:18 40 MG Hydralazine HCl 10 mg Q6HP PRN IV 05/21/24 19:00 05/21/24 19:42 10 MG Ondansetron HCl 4 mg Q4HPRN PRN IV 05/21/24 19:00 05/21/24 19:39 4 MG Ceftriaxone Sodium 50 ml @ 100 mls/hr DAILY@09 IV 05/22/24 12:45 05/23/24 18:35 100 MLS/HR Sacubitril/ Valsartan 1 tab BID PO 05/23/24 22:00 05/24/24 21:27 1 TAB laboratory and microbiology Laboratory Tests 05/25/24 05:00 05/23/24 08:04 Test 05/25/24 05:00 Range/Units Serum Glucose 97 74-106 mg/dL Assessment/Plan Patient is a 78-year-old female who originally presented on May 20, 2024 for altered level of consciousness. Reportedly, the family found her altered and she was brought to the hospital. EMS found her blood sugar of 58 and in emergency room the blood sugar was 33. There has been some question about chest discomfort. Reportedly, patient did have some nausea and vomiting for around 1 week prior to presentation which also included some poor oral intake. It is of note that the patient is poor historian. She does speak Slovenian but is only alert oriented x2. She looks cachectic. Cardiology is involved for cardiac aspects of care. Patient is known to us from previous admission in February 2024. At that time, patient was found to have systolic heart failure, nonischemic cardiomyopathy. At that time, cardiac catheterization was performed which revealed nonobstructive coronary artery disease and reduced LVEF. Patient was deemed at that point not to be competent (secondary to dementia) to manage LifeVest. Patient has a baseline mildly elevated/flat troponin. Patient has baseline limited functional capacity. She does have history of end-stage renal disease and is on hemodialysis. Lying flat in bed. No JVD. Mucous is pink and wet. No carotid bruit. Poor air entry in lungs. Cardiac: Regular. Systolic murmur 2/6 at apex and diastolic murmur 2/6 at the base is heard. Abdomen is soft. Bowel sound is positive. There is no gross mass. Extremities do not reveal edema. Dorsalis pedis 2+ bilateral Past medical history reportedly includes end-stage renal disease on hemodialysis, diabetes mellitus, hypertension, hyperlipidemia, systolic heart failure, nonischemic cardiomyopathy, old CVA, repeated pleural effusion and status post repeated pleural tap by Pulmonary, history of pneumothorax, status post AV fistula creation and also history of CVA Echocardiogram of February 15, 2024 reported ejection fraction of 20%, pseudonormal LV filling, [id number] aortic insufficiency/mitral regurgitation/tricuspid regurgitation, large pleural effusion and right ventricular systolic pressure of 62 mmHg. Left heart catheterization of February 25, 2024 that reported nonobstructive coronary artery disease, and ischemic cardiomyopathy and ejection fraction of 25% WBC: 8.6 - 13.3 - 9.2 Creatinine: 4.33 - 5.88 - 3.87 - 2.24 - 3.39 Potassium: 5.0 - 6.0 - 4.1 - 2.8 - 3.2 - 4.1 Calcium: 11.0 - 11.0 - 9.4 -9.1 - 8.9 Troponin (I sensitive): 49 - 48 - 44 - 71 - 71 - 67 Chest x-ray revealed: FINDINGS: Lines and Tubes: None Lungs: No focal consolidation. Minimal blunting of the left costophrenic angle No pneumothorax. Cardiomediastinal contours: Unremarkable Bones: No acute osseous abnormality. IMPRESSION: Trace left-sided pleural effusion with associated atelectasis. EKG revealed sinus rhythm, poor R-wave progression, PVC and nonspecific ST-T changes Tele reveals sinus rhythm Echocardiogram revealed: Dilated 4 chambers. Left ventricle: Mild concentric left ventricular hypertrophy was seen. Left ventricle was mildly dilated. LVEF was 35-40%. Mild diffuse hypokinesis of left ventricle was seen. Pseudo normal LV filling was observed. Right ventricle was dilated with reduced systolic function. Both atria were mildly dilated. Aortic valve: Aortic valve was trileaflet. Aortic sclerosis with no stenosis was seen. There was no aortic insufficiency. There was mild mitral regurgitation. There was moderate tricuspid regurgitation. There was trivial pulmonary valve insufficiency. Right ventricular systolic pressure was assessed at 55 mm Hg. There was no pericardial effusion. Patient is a 78-year-old female who presented with altered level of consciousness. She was found to have hypoglycemia on arrival. Calcium was also elevated on arrival. Metabolic encephalopathy could explain the patient's presentation. Patient has a baseline of component of dementia. There has been some poor oral intake/nausea prior to presentation. There has been some question about chest discomfort. Serial high sensitive troponin has remained flat and minimally elevated. Patient has a history of nonischemic cardiomyopathy and systolic heart failure. Minimally abnormal/flat troponin is considered to reflect demand ischemia in a patient with systolic heart failure and nonischemic cardiomyopathy. No further ischemic workup is indicated at this point. Compared to February 2024, echo reveals some improvement of LV systolic function (from 20% to 35%). Continuation of GDMT is suggested. No indication for life vest at this point. Is being followed by Nephrology/GI Encephalopathy, metabolic Hypoglycemia Hypercalcemia Dementia Increased troponin, flat, demand physiology Systolic heart failure, history of Diabetes mellitus End-stage renal disease on hemodialysis Old CVA Nonobstructive coronary artery disease. Nonischemic cardiomyopathy. Cardiac suggestion for management: Manage on telemetry Follow up electrolytes and kidney function tests and correct abnormalities HD as per Nephrology Patient has a history of nonischemic cardiomyopathy and systolic heart failure. Minimally abnormal/flat troponin is considered to reflect demand ischemia in a patient with systolic heart failure and nonischemic cardiomyopathy. No further ischemic workup is indicated at this point. Compared to February 2024, echo reveals some improvement of LV systolic function (from 20% to 35%). Continuation of GDMT is suggested. No indication for life vest at this point. Evaluation and management of reported hypoglycemia/hypercalcemia (resolved) as per primary team/nephrology Guideline directed medical therapy for systolic heart failure (Carvedilol/Entresto) Long-term monitor can be arranged as outpatient Cardiac cast, stable Further evaluation and management depends on the above and clinical course A total of 55 minutes was spent reviewing the patient record, examining the patient, making a diagnostic and therapeutic plan, discussing this plan with medical personnel, following up on diagnostic studies and following the patient for clinical stability excluding any and all procedures. At least 50% of this time was spent in direct, [id number] contact. Thank you for allowing me to participate in this patient's care. Further recommendations will depend on patient's clinical course. Please do not hesitate to contact me if you have any questions or concerns. This medical document was created using electronic medical record system with [employer] computerized dictation system. Although this document has been carefully reviewed, there may still be some phonetic and typographical errors. These areas are purely typographical due to the imperfection of the software programs, and do not reflect any compromise in the patient's medical care. Dietary Evaluation Review Comments: Continue current plan of care Expected Outcomes/Goals: F/U in 3-5 days Plan discussed with: Other (nurse) CAREY MCKEON MD May 25, 2024 07:38
[2024-05-25 08:00] VITALS: PULSE 67
--- NOTE | 2024-05-25 08:19 | DVHPN2 ---
Progress Note - Dictate Date Seen: May 25, 2024 Has the PT tested + for MRSA If YES, has PT been informed?: No Medical Necessity Reason Pt with a Central, PICC or Fol: No Subjective The patient is comfortably sleeping this morning with no complaints. Patient wants to go home vital signs Vital Sign Date Time Temp Pulse Resp B/P (MAP) Pulse Ox O2 Delivery O2 Flow Rate FiO2 05/25/24 05:18 98.7 68 16 122/66 (84) 100 98.7 05/24/24 20:00 Room Air* 0 21 Total Intake and Output 05/24/24 05/24/24 05/25/24 15:00 23:00 07:00 Intake Total 800 ml 700 ml Balance 800 ml 700 ml medications Current Medications Medications Dose Ordered Sig/Nader Route Start Time Stop Time Status Last Admin Dose Admin Acetaminophen 325 mg Q4HP PRN PO 05/21/24 06:00 05/24/24 00:31 325 MG Acetaminophen/ Hydrocodone Bitart 1 tab Q4HP PRN PO 05/21/24 06:00 05/22/24 15:48 1 TAB Nitroglycerin 0.4 mg Q5MINP PRN SL 05/21/24 06:00 Morphine Sulfate 2 mg Q30M PRN IV 05/21/24 06:00 Atorvastatin Calcium 20 mg DAILY PO 05/21/24 10:00 05/24/24 10:59 20 MG Multivit/Ca Carb/ B Cmplx/FA/Prenat 1 tab DAILY PO 05/21/24 10:00 05/24/24 10:58 1 TAB Carvedilol 3.125 mg Q12HR PO 05/21/24 10:00 05/24/24 21:31 3.125 MG Diagnostic Test (Pha) 1 strip Q6HR 05/21/24 12:00 05/25/24 05:18 1 STRIP Insulin Human Regular Q6HR SC 05/21/24 12:00 05/25/24 00:37 2 UNITS Dextrose 50 ml UD PRN IV 05/21/24 09:45 Pantoprazole Sodium 40 mg DAILY@0600 PO 05/22/24 06:00 05/25/24 05:18 40 MG Hydralazine HCl 10 mg Q6HP PRN IV 05/21/24 19:00 05/21/24 19:42 10 MG Ondansetron HCl 4 mg Q4HPRN PRN IV 05/21/24 19:00 05/21/24 19:39 4 MG Ceftriaxone Sodium 50 ml @ 100 mls/hr DAILY@09 IV 05/22/24 12:45 05/23/24 18:35 100 MLS/HR Sacubitril/ Valsartan 1 tab BID PO 05/23/24 22:00 05/24/24 21:27 1 TAB objective HEENT: No evidence of JVD, no oral ulcers. Pulmonary: Lungs are clear on auscultation bilaterally Cardiovascular S1-S2, no S3 or S4 Abdomen: Bowel sounds positive, soft no rebound tenderness Skin: No rash Neurological: Alert, confused no focal weakness laboratory and microbiology Laboratory Tests 05/25/24 05:00 05/23/24 08:04 Test 05/25/24 05:00 Range/Units Serum Glucose 97 74-106 mg/dL Assessment/Plan Assessment: End-stage kidney disease on hemodialysis Persistent nausea and vomiting with poor oral intake Chest pain Hypoglycemia secondary to above Metabolic encephalopathy Hypertension Hypercalcemia Hypophosphatemia Recommendation: Hemodialysis Wednesday. Cardiology consult, GI consult appreciated. Discontinue sevelamer and Auryxia in light of hypophosphatemia Blood sugar monitoring Blood pressure control Day to discharge home from Nephrology perspective Thank you very much for allowing us to participate in the care of this patient. Dietary Evaluation Review Comments: Continue current plan of care Expected Outcomes/Goals: F/U in 3-5 days Plan discussed with: Patient FIGUEROA VELASQUEZ MD May 25, 2024 08:19
[2024-05-25 08:55] VITALS: BP 127/67; PULSE 67; RESP 18; TEMP 98; O2SAT 94
[2024-05-25] MEDS ORDERED: AZIT-43 PO (10:58)
[2024-05-25] MEDS ORDERED: THROAT LOZENGES(CEPASTAT) MT PRN (11:00)
--- NOTE | 2024-05-25 11:09 | DVHDS2 ---
Discharge Summary Date of Admission May 21, 2024 at 05:57 Date of Discharge: May 25, 2024 Labs/Diagnostic Data: Laboratory Results Test 05/25/24 06:20 05/25/24 05:13 05/25/24 05:00 05/23/24 08:04 Influenza Type A Antigen Negative (Negative) Influenza Type B Antigen Negative (Negative) SARS-CoV-2 Antigen (Rapid) Negative (NEGATIVE) POC Glucose 105 mg/dl (70-106) Sodium Level 136 mmol/L (136-145) Potassium Level 4.1 mmol/L (3.5-5.1) Chloride Level 97 mmol/L (98-107) Carbon Dioxide Level 30 mmol/L (20-31) Anion Gap 9 (5-15) Blood Urea Nitrogen 36 mg/dL (9-23) Creatinine 3.39 mg/dL (0.550-1.02) Glomerular Filtration Rate Calc 13 mL/min (>90) BUN/Creatinine Ratio 10.6 (10.0-20.0) Serum Glucose 97 mg/dL (74-106) Calcium Level 8.9 mg/dL (8.7-10.4) White Blood Count 9.2 10^3/uL (4.4-10.8) Red Blood Count 3.69 10^6/uL (4.0-5.20) Hemoglobin 11.0 g/dL (12.2-16.2) Hematocrit 33.0 % (36.0-46.0) Mean Corpuscular Volume 89.6 fL (80.0-100.0) Mean Corpuscular Hemoglobin 29.8 pg (28.0-32.0) Mean Corpuscular Hemoglobin Concent 33.2 g/dL (32.0-36.0) Red Cell Distribution Width 21.9 % (11.8-14.3) Platelet Count 83 10^3/uL (140-450) Mean Platelet Volume 7.6 fL (6.9-10.8) Neutrophils (%) (Auto) 79.7 % (37.0-80.0) Lymphocytes (%) (Auto) 11.6 % (10.0-50.0) Monocytes (%) (Auto) 8.0 % (0.0-12.0) Eosinophils (%) (Auto) 0.5 % (0.0-7.0) Basophils (%) (Auto) 0.2 % (0.0-2.0) Neutrophils # (Auto) 7.3 10 ^3/uL (1.6-8.6) Lymphocytes # (Auto) 1.1 10 ^3/uL (0.4-5.4) Monocytes # (Auto) 0.7 10 ^3/uL (0-1.3) Eosinophils # (Auto) 0 10 ^3/uL (0-0.8) Basophils # (Auto) 0 10 ^3/uL (0-0.2) Nucleated Red Blood Cells 0.0 % Test 05/22/24 17:48 05/22/24 04:32 05/21/24 09:57 05/20/24 21:39 Troponin I High Sensitivity 67 ng/L (</=34) Total Bilirubin 0.4 mg/dL (0.2-1.0) Aspartate Amino Transferase (AST) 27 U/L (13-40) Alanine Aminotransferase (ALT) 27 U/L (7-40) Alkaline Phosphatase 98 U/L (46-116) Total Protein 6.6 g/dL (5.7-8.2) Albumin 3.5 g/dL (3.2-4.8) Hemoglobin A1c 5.2 % A1C (<5.7) Phosphorus Level 1.9 mg/dL (2.4-5.1) Magnesium Level 2.4 mg/dL (1.6-2.6) Other Laboratory Tests 05/25/24 05:00 05/23/24 08:04 Brief Hx & Hospital Course: Patient is a 76-year-old female who comes to the ER today via EMS for altered level of consciousness/hypoglycemia. Patient has a history of hypertension, end-stage renal disease, diabetes, and currently on dialysis. The patient's family members noted that the patient has been acting confused and altered for the past few hours, and patient has been unresponsive to verbal stimuli. When paramedics arrived on the scene the patient's blood sugar was 58. Upon arrival to the emergency room the patient's blood sugar went down to 33. While in the emergency department the patient was evaluated by the provider, As per provider: Labs, vital signs, and imagining monitored. Patient was admitted on May 21, 2024 for metabolic encephalopathy. Patient has end-stage renal disease on hemodialysis. Likely patient had some infection viral in nature. Patient had mild leukocytosis. She was treated with IV antibiotics and her condition did improve. Patient is complaining of the severe throat pain. Influenza swab and COVID swab was negative. Patient has a EF approximately 15%. She has systolic acute on chronic systolic heart failure and cardiomyopathy. She will continue hemodialysis outpatient. She was sent a prescription for a Z-Mendoza. She will follow-up with her PCP in 1 week. Patient's mentation was at her baseline. I did speak with patient's caregiver which is her daughter at length. Patient was on metformin outpatient which is not a good considering she is on hemodialysis. I did inform her to follow-up with the PCP to confirm what diabetic medicine to place patient on. Patient's hemoglobin A1c was less than 5.2. The patient received proper medical treatment and medications. Vital signs, Imaging and Laboratory Work was monitored daily. All consults recommendations were followed as provided. There were no complaints or new complaints upon discharge, all questions and concerns were answered. Patient was advised to return to the ER or call 911 if any headaches, dizziness, shortness of breath, chest pain, bleeding, fevers, or worsening of medical condition. Patient/Family was counseled about treatment plan, medications, possible side effects, patient verbalized understanding. All questions were answered to the best of my ability. The patient symptoms improved and they are okay to be DC. Condition at Discharge: Stable Final Diagnosis/Problems List Acute metabolic encephalopathy Leukocytosis-resolved ESRD Discharge Disposition: Home Discharge Instruct/Medications Diet: Renal Activity: No Restrictions, As Tolerated Follow Up/Referral: pcp 1 week Medications: See above Discharge Statement: "Patient was advised to return to the ER or call 911 if any headaches, dizziness, shortness of breath, chest pain, abdominal pain, bleeding, fevers, or worsening of medical condition. Patient was counseled about treatment plan, medications, possible side effects, patientverbalized understanding. All questions were answered to the best of my ability. This discharge took greater then 30 minutes in planning, reviewing documentation, counseling the patient, and discussing with other team members." ASSESSMENT ASSESSMENT Assessment Acute metabolic encephalopathy Leukocytosis-resolved ESRD SHANE MORALES NP May 25, 2024 11:09
[2024-05-25 13:57] VITALS: BP 122/68; PULSE 54; RESP 16; TEMP 98.1; O2SAT 95
[2024-05-25 14:00] VITALS: BP 122/68; PULSE 59; RESP 16; TEMP 98.1; O2SAT 95
[2024-05-26] MEDS ORDERED: SODIUM CHL 0.9% 1000 ML BAG XX ONE (07:00)
== END 2024-05-25 14:38 | disposition home or self-care (01) | DRG 420 ==
LOC: ER 20:54 → EDBD 20:54 → TELE 05-21 05:57 → TELE-CENTR 05-21 14:45
PROVIDERS: ADMIT Internal Medicine; ATTEND Nurse Practitioner
PROC: 5A1D70Z Performance of Urinary Filtration, Intermittent, Less than 6 Hours Per Day (ICD-10-PCS; principal; 2024-05-22)
PROC: 5A1D70Z Performance of Urinary Filtration, Intermittent, Less than 6 Hours Per Day (ICD-10-PCS; 2024-05-24)
DX: E11.649 Type 2 diabetes mellitus with hypoglycemia without coma (principal); G93.41 Metabolic encephalopathy; I50.23 Acute on chronic systolic (congestive) heart failure; N18.6 End stage renal disease; I42.8 Other cardiomyopathies; E83.39 Other disorders of phosphorus metabolism; R64 Cachexia; Z20.822 Contact with and (suspected) exposure to COVID-19; I13.2 Hypertensive heart and chronic kidney disease with heart failure and with stage 5 chronic kidney disease, or end stage renal disease; I25.10 Atherosclerotic heart disease of native coronary artery without angina pectoris; I08.3 Combined rheumatic disorders of mitral, aortic and tricuspid valves; D72.829 Elevated white blood cell count, unspecified; I25.5 Ischemic cardiomyopathy; E11.22 Type 2 diabetes mellitus with diabetic chronic kidney disease; F03.90 Unspecified dementia, unspecified severity, without behavioral disturbance, psychotic disturbance, mood disturbance, and anxiety; E78.5 Hyperlipidemia, unspecified; E83.52 Hypercalcemia; Z99.2 Dependence on renal dialysis; Z86.73 Personal history of transient ischemic attack (TIA), and cerebral infarction without residual deficits; Z79.84 Long term (current) use of oral hypoglycemic drugs; Z79.899 Other long term (current) drug therapy
CPT/HCPCS: 36415; 71045; 80048; 80053; 82962; 83036; 83735; 84100; 84132; 84484; 85025; 87426; 87804; 90935; 93005; 93306; 97163; 99291; G0378; J1815; J2405; P9047

== ENCOUNTER 2024-08-25 15:16 | Inpatient (IN) | payer MEDICAID ==
[~2024-08-25] VITALS: Ht 149.9 cm; Wt 52.9 kg
[~2024-08-25 15:16] MED LIST changes: +AZIT-43 PO; -DOX100T PO; -FERR1TAB17 PO; -SEVE800T20 PO
--- NOTE | 2024-08-25 15:48 | ED.PDOC ---
HPI Comments HPI: Poor Historian. Patient herself denies any pain or any distress. EMS informs that the pt went to get dialysis today. The family stated to the dialysis doctor that the pt has not been eating or drinking and has been having /N for the past 2 days, but the doctor still wanted to do the dialysis. In the dialysis facility after 140 cc of volume were removed, the pt's BP systolically went down to 88 and EMS was called. When EMS arrived on scene, they stated that the pts, Blood sugar was 53. They gave the patient dextrose in route which improved his blood sugar. However upon arrival here her blood sugar was in the 80s. I ordered a D50 amp. VITALS: HR: 81 BP:On scene -systolic 88 but currently 104/51 Blood Sugar on scene-53 they gave her an amp sugar 250 cc and the blood sugar improved to 114 Past medical history:ESRD on hemodialysis, HTN, High Lipids, DM and family state "Unknown Cardiac" Past surgical history: Denies any Allergies: NKDA REVIEW OF SYSTEMS: CONSTITUTIONAL: Denies acute: fever, diaphoresis, chills, HEAD: Denies acute: headache, photophobia Eyes: Denies acute: Double vision, vision loss, eye pain, eye discharge. EARS: Denies acute: tinnitus, hearing loss, ear discharge, ear pain, THROAT: Denies acute: sore throat, swelling, difficulty swallowing , pain with swallowing, change in voice. NECK: Denies acute: neck pain, neck swelling, stiff neck. HEART: Denies acute : chest pain, palpitations, LUNGS: Denies acute: SOB, wheezing, cough, hemoptysis ABDOMEN: Denies acute: abdominal pain, Nausea, Vomiting, diarrhea, melena , hematemesis, hematochezia SKIN: Denies acute: rash, redness, lesions, itchiness. EXTREMITIES: Denies acute: calf pain, numbness, tingling, weakness, denies pain in extremity. Denies acute: Low back pain. Neuro: Denies acute: focal neurological deficit, motor or sensory focal neurological deficit, tremors, seizure like activity, dizziness, loss of bowel or bladder function, cauda equina like symptoms. : Denies acute: dysuria, hematuria, flank pain, increase in urinary frequency. PSYCH: Denies acute: hallucination, suicidal ideation, homicidal ideation. FEMALE: Denies acute: abnormal vaginal bleeding, foul odor, unusual discharge. PHYSICAL EXAM: General: no acute distress, awake and alert. Head: normocephalic, atraumatic. Neck: supple, trachea is midline, no swelling. Throat: Normal phonation. Eyes:, no erythema, no purulent discharge, no proptosis, no icterus. Heart: regular rate, regular rhythm, no significant murmur appreciated. Lungs: no apparent respiratory distress, Able to speak in full sentences. No wheezing, no rhonchi, no crackles. No stridors Clear to auscultation bilaterally. Abdomen: non tender to palpation, non distended, soft, no guarding, no rebound, + bowel sounds. Neuro: Awake, Alert, oriented to name, self, situation, follows commands GCS=15. Speech is normal. Skin: no petechia, no purpura, no cyanosis, non-pale, not jaundice. Lower extremities: --no - Pitting edema no deformity, no focal swelling, no calf TTP. Noted left upper extremity dialysis access. Makes eye contact. moves all four extremities. Face: no apparent facial droop. Ambulating in the ED independently. ED COURSE: Chief Complaint: Hypoglycemia Time Seen by MD: 15:35 Primary Care Provider: UNKNOWN Reviewed Notes: Nurses Notes, Webfocus Developer Notes, Allergies Allergies: Coded Allergies: No Known Drug Allergy (Verified Allergy, Unknown, 01/07/22) Home Meds Active Scripts Azithromycin (Azithromycin) 250 Mg Tab, 250 MG PO DAILY MDD 500 for 5 Days, #6 TAB 0 Refills 2 TABLETS ORALLY ON DAY ONE, THEN 1 TABLET ORALLY DAILY FOR 4 DAYS Prov:SHANE MORALES DIESEL TRAILER MECHANIC 05/25/24 Carvedilol (COREG) 3.125 Mg Tab, 3.125 MG PO Q12HR for 30 Days, #60 TAB Prov:SHANE MORALES DIESEL TRAILER MECHANIC 03/28/24 Reported Medications Ergocalciferol (Vitamin D) 50,000 Unit Cap, 1 TAB PO QWEEKLY for 28 Days, #4 02/22/24 Atorvastatin Calcium (ATORVASTATIN CALCIUM) 20 Mg Tab, 1 TAB PO DAILY 02/15/24 Amlodipine Besylate (Amlodipine Besylate) 5 Mg Tab, 1 TAB PO DAILY 02/15/24 B-Complex W/ C & Folic Acid ([facility]) Tab, 1 TAB PO DAILY 02/15/24 Information Source: Patient, Emergency Med Personnel Mode of Arrival: EMS Severity: Moderate Timing: Minutes Duration: Since onset, Minutes Cardiac Risk Factors: Hyperlipidemia, HTN, Diabetes PE Risk Factors: None History of: None Associated Signs and Symptoms: None Past Medical History PAST MEDICAL HISTORY: DM, ESRD, High Lipids, HTN Past Medical History (Other): Family-"Unknown Cardiac" Surgical History: Denies all surgeries WASH BOX OPERATOR History: No Pertinent WASH BOX OPERATOR History Family History Family History: Reviewed,noncontributory to illness, Unknown Social History Smoker: Non-Smoker Alcohol: Denies ETOH Use Drugs: Denies Drug Use Lives In: Home Was a procedure done? Was a procedure done?: No CP Differential Dx Differential Diagnosis: N/A Differential Diagnosis: Other (Includes but not limited to thyroid disease, encephalopathy, electrolyte abnormality, sepsis, infection, intracranial pathology, drug adverse effects, arrhythmia, kidney insufficiency, ACS, CVA, malignancy, anemia) X-Ray, Labs, Meds, VS Vital Signs Date Time Temp Pulse Resp B/P (MAP) Pulse Ox O2 Delivery O2 Flow Rate FiO2 08/25/24 19:54 71 20 77/58 (64) 100 50 08/25/24 18:55 21 100 Nasal Cannula* 1 24 08/25/24 17:47 121/49 08/25/24 17:45 79 24 121/49 (73) 100 08/25/24 16:40 78 31 96 Nasal Cannula* 1 24 08/25/24 16:36 96.6 78 31 116/38 (64) 96 96.6 08/25/24 16:27 82 08/25/24 15:16 98.0 80 16 104/73 (83) 96 Lab Test 08/25/24 20:13 08/25/24 18:17 08/25/24 17:38 08/25/24 17:00 Range/Units Troponin I High Sensitivity 39 *H 41 *H 43 *H </=34 ng/L POC Glucose 278 H 70-106 mg/dl White Blood Count 13.1 H 4.4-10.8 10^3/uL Red Blood Count 3.84 L 4.0-5.20 10^6/uL Hemoglobin 10.8 L 12.2-16.2 g/dL Hematocrit 36.0 36.0-46.0 % Mean Corpuscular Volume 93.8 80.0-100.0 fL Mean Corpuscular Hemoglobin 28.0 28.0-32.0 pg Mean Corpuscular Hemoglobin Concent 29.9 L 32.0-36.0 g/dL Red Cell Distribution Width 18.6 H 11.8-14.3 % Platelet Count 273 140-450 10^3/uL Mean Platelet Volume 8.1 6.9-10.8 fL Neutrophils (%) (Auto) 37.0-80.0 % Lymphocytes (%) (Auto) 10.0-50.0 % Monocytes (%) (Auto) 0.0-12.0 % Basophils (%) (Auto) 0.0-2.0 % Neutrophils # (Auto) 1.6-8.6 10 ^3/uL Lymphocytes # (Auto) 0.4-5.4 10 ^3/uL Monocytes # (Auto) 0-1.3 10 ^3/uL Differential Total Cells Counted 100.0 100 Neutrophils % (Manual) 90 H 37.0-80.0 Band Neutrophils % (Manual) 2 Lymphocytes % (Manual) 5 L 10.0-50.0 Monocytes % (Manual) 3 0-12 Eosinophils % (Manual) 0 0-7 Basophils % (Manual) 0 0.0-2.0 Metamyelocytes % (manual) 0 Myelocytes % (Manual) 0 Promyelocytes % (Manual) 0 Blast Cells % (Manual) 0 Reactive Lymphocytes 0 Platelet Estimate Adequate Sodium Level 134 L 136-145 mmol/L Potassium Level 5.9 *H 3.5-5.1 mmol/L Chloride Level 88 L 98-107 mmol/L Carbon Dioxide Level 16 L 20-31 mmol/L Anion Gap 30 H 5-15 Blood Urea Nitrogen 74 H 9-23 mg/dL Creatinine 3.77 H 0.550-1.02 mg/dL Glomerular Filtration Rate Calc 12 >90 mL/min BUN/Creatinine Ratio 19.6 10.0-20.0 Serum Glucose 327 H 74-106 mg/dL Lactic Acid Level 17.7 *H 0.4-2.0 mmol/L Calcium Level 10.3 8.7-10.4 mg/dL Total Bilirubin 0.3 0.2-1.0 mg/dL Aspartate Amino Transferase (AST) 36 13-40 U/L Alanine Aminotransferase (ALT) 40 7-40 U/L Alkaline Phosphatase 131 H 46-116 U/L B-Type Natriuretic Peptide 698.07 0-100 pg/mL Total Protein 6.2 5.7-8.2 g/dL Albumin 3.2 3.2-4.8 g/dL Current Medications Medications (Trade) Dose Ordered Sig/Nader Route Start Time Stop Time Status Last Admin Dextrose 50 ml ONCE ONCE IV 08/25/24 15:45 08/25/24 15:46 DC 08/25/24 16:24 Furosemide (Lasix Injection) 40 mg ONCE ONCE IV 08/25/24 17:30 08/25/24 17:31 DC 08/25/24 17:47 Piperacillin Sod/ Tazobactam Sod 50 ml @ 50 mls/hr ONCE ONCE IV 08/25/24 17:30 08/25/24 18:29 DC 08/25/24 17:47 Albuterol (Ventolin Medneb) 20 mg ONCE ONCE NEB 08/25/24 18:15 08/25/24 18:46 DC 08/25/24 18:55 Calcium Gluconate/ Sodium Chloride 50 ml @ 120 mls/hr ONCE ONCE IV 08/25/24 18:15 08/25/24 18:46 DC 08/25/24 18:55 Zirconium Oxide (Lokelma) 10 gm ONCE ONCE PO 08/25/24 18:15 08/25/24 18:46 DC 08/25/24 18:53 [place] [id number] Ph: [phone] DIAGNOSTIC IMAGING Diagnostic Imaging Report : [id number] Signed PATIENT: SURAJ RODNEY ACCT: [id number] UNIT: [id number] : 1945 LOC: ER ROOM / BED: / AGE / SEX: 78 / F ADM STATUS: REG ER SERVICE [id number] ORDERING PHYSICIAN: NGHIA BALDERAS DO PROCEDURE(s): CXRP - CHEST PORTABLE REASON: weak, hypotensive ORDER NUMBER(s): [id number], ACCESSION NUMBER(s): [id number] Procedure: XY CHEST PORTABLE 08/25/2024 04:10 PM Indication: weak, hypotensive Comparison: XY CHEST PORTABLE on DOS: 05/20/24, XY CHEST PORTABLE on DOS: 03/24/24, XY CHEST PORTABLE on DOS: 03/24/24 TECHNIQUE: XY CHEST PORTABLE FINDINGS: Medical devices: None. Cardiomediastinal: The heart is mildly enlarged. Pulmonary vasculature is pro minent. Atherosclerotic calcification of the aortic arch noted. Lungs: Large right pleural effusion and diffuse right lung pulmonary opacities. Reticular opacities noted in the left upper and midlung zones. Blunting of the left costophrenic angle. Small patchy opacity in the left lower lung zone. No pneumothorax. Bones/soft tissues: No acute abnormality is noted. Demineralized bones. A left axillary stent is seen. IMPRESSION: 1. CHF bilateral pleural effusions, right greater than left and bilateral p ulmonary opacities may represent edema or pneumonia. Recommend clinical and biochemical correlation. ATED BY: NATALIIA WARREN MD DICTATED DATE/TIME: 08/25/241658 SIGNED BY: NATALIIA WARREN MD SIGNED DATE/TIME: 08/25/241658 CC: Time of 1ST Reevaluation: 16:05 Reevaluation 1ST: Unchanged Patient Education/Counseling: Diagnosis, Treatment, Prognosis Family Education/Counseling: No Family Present Comments Patient presented with the above HPI.--hypotension hypoglycemia and altered level of consciousness----workup was initiated. patient was found with the above mentioned diagnosis. the following medications were ordered: please refer to order lists of meds and tests obtained by myself Dr. Balderas. Patient ED course and VS have been stabilized. Patient has been reassessed in the ED and remained in a stable condition. Pertinent incidental findings were discussed with the patient and/or family. Patient/family voices understanding and is agreeable with plan. Patient has been observed in the ED adequate length of time to insure improvemen t/stability. Escalation of care considered: Consideration of escalation to observation or admission Patient is still makes some urine. Patient was given Lasix. Lactic acid was elevated however she was volume overloaded and initiating fluid resuscitation with worsen her respiratory function. Patient has slight leukocytosis and elevated lactic acid. Antibiotics were initiated. Electrolytes were replaced. Patient's sugar appears elevated but that was after a D 50 amp was given. Initially she was very low. Repeat Accu- Cheks most recently was 201. Patient is not likely to be in DKA. We will repeat CMP and confirm with beta hydroxybutyrate levels. Patient was ADMITTED to the medicine team for further evaluation and treatment of their presentation. All the reports of any imaging studies that were ordered by myself were reviewed by myself. Departure 1 Departure Time of Disposition: 17:26 Impression: Primary Impression: CHF exacerbation Additional Impressions: Volume overload Hypotension Hypoglycemia Altered level of consciousness End-stage renal disease on hemodialysis Pleural effusion Elevated lactic acid level Disposition: ADMITTED INPATIENT Admit to: Tele Condition: Guarded Discharged With: Self Critical Care Note Critical Care Time?: Yes (1 hr-critical care time only) Heart Score Heart Score: Heart Score Response (Comments) Value History N/A 0 EKG N/A 0 Age N/A 0 Risk Factors N/A 0 Troponin N/A 0 Total 0 I personally scribed for NGHIA BALDERAS DO ([email or web address]) on 08/25/24 at 15:48. Electronically submitted by Sharif Knight ([email or web address]). I personally scribed for NGHIA BLADERAS DO ([email or web address]) on 08/25/24 at 17:28. Electronically submitted by Sharif Knight ([email or web address]). NGHIA BALDERAS DO Aug 25, 2024 15:48
[2024-08-25] MEDS: DEXTROSE (50%) 50ML SYRG IV ONE (16:24)
[2024-08-25 16:40] VITALS: PULSE 78; RESP 31; O2SAT 96
--- NOTE | 2024-08-25 17:02 | DVH ---
Procedure: XY CHEST PORTABLE 08/25/2024 04:10 PM Indication: weak, hypotensive Comparison: XY CHEST PORTABLE on DOS: 05/20/24, XY CHEST PORTABLE on DOS: 03/24/24, XY CHEST PORTABLE on DOS: 03/24/24 TECHNIQUE: XY CHEST PORTABLE FINDINGS: Medical devices: None. Cardiomediastinal: The heart is mildly enlarged. Pulmonary vasculature is prominent. Atherosclerotic calcification of the aortic arch noted. Lungs: Large right pleural effusion and diffuse right lung pulmonary opacities. Reticular opacities noted in the left upper and midlung zones. Blunting of the left costophrenic angle. Small patchy opac ity in the left lower lung zone. No pneumothorax. Bones/soft tissues: No acute abnormality is noted. Demineralized bones. A left axillary stent is seen . IMPRESSION: 1. CHF bilateral pleural effusions, right greater than left and bilateral pulmonary opacities may rep resent edema or pneumonia. Recommend clinical and biochemical correlation.
[2024-08-25 17:35] LABS: Hemoglobin 10.8 g/dL (12.2-16.2)
[2024-08-25 17:36] LABS: Mean Corpuscular Hgb Conc. 29.9 g/dL (32.0-36.0); Mean Corpuscular Volume 93.8 fL (80.0-100.0); Platelet Count (auto) 273 10^3/uL (140-450); Red Blood Cells 3.84 10^6/uL (4.0-5.20); Red Cell Distribution Width 18.6 % (11.8-14.3); White Blood Cell 13.1 10^3/uL (4.4-10.8)
[2024-08-25] MEDS: PIPERACILLIN-TAZOB 2.25GM 50 ML IV ONE (17:47)
[2024-08-25] MEDS: FUROSEMIDE 40 MG/4 ML VIAL IV ONE (17:47)
[2024-08-25 17:51] LABS: Basophils % (manual) 0 (0.0-2.0); Blast Cells 0; Eosinophils % (manual) 0 (0-7); Metamyelocytes % 0; Myelocytes % 0; Promyelocytes % 0; Reactive Lymphocytes 0
[2024-08-25 17:54] LABS: Alanine Aminotransferase 40 U/L (7-40); Albumin 3.2 g/dL (3.2-4.8); Anion Gap 30 (5-15); Aspartate Aminotransferase 36 U/L (13-40); BUN/Creatinine Ratio 19.6 (10.0-20.0); Calcium 10.3 mg/dL (8.7-10.4); Total Protein 6.2 g/dL (5.7-8.2)
[2024-08-25 18:02] LABS: Alkaline Phosphatase 131 U/L (46-116); Bilirubin, Total 0.3 mg/dL (0.2-1.0); Blood Urea Nitrogen 74 mg/dL (9-23); Carbon Dioxide 16 mmol/L (20-31); Chloride 88 mmol/L (98-107); Glucose 327 mg/dL (74-106); Sodium 134 mmol/L (136-145)
[2024-08-25 18:05] LABS: Potassium 5.9 mmol/L (3.5-5.1)
[2024-08-25 18:14] LABS: Lactic Acid w/Reflex 17.7 mmol/L (0.4-2.0)
[2024-08-25 18:19] LABS: Band Neutrophils % (manual) 2; Lymphocytes % (manual) 5 (10.0-50.0); Monocytes % (manual) 3 (0-12); Platelet Estimate Adequate
[2024-08-25] MEDS: SODIUM ZIRCONIUM CYCL 10 GM PAK PO ONE (18:53)
[2024-08-25] MEDS: ALBUTEROL SULF 2.5 MG/0.5ML(0.5%) NEB SOLN NEB ONE (18:55)
[2024-08-25] MEDS: CALCIUM GLUC 1,000mg/50ml-NS 50 ML IV ONE (18:55)
[2024-08-25] MEDS: ALBUTEROL SULF 2.5 MG/0.5ML(0.5%) NEB SOLN ONE (18:55)
--- NOTE | 2024-08-25 20:43 | DVHHP2 ---
History of Present Illness Home Meds Active Scripts Azithromycin (Azithromycin) 250 Mg Tab, 250 MG PO DAILY MDD 500 for 5 Days, #6 TAB 0 Refills 2 TABLETS ORALLY ON DAY ONE, THEN 1 TABLET ORALLY DAILY FOR 4 DAYS Prov:SHANE MORALES CONTROL VALVE MECHANIC 05/25/24 Carvedilol (COREG) 3.125 Mg Tab, 3.125 MG PO Q12HR for 30 Days, #60 TAB Prov:SHANE MORALES CONTROL VALVE MECHANIC 03/28/24 Reported Medications Ergocalciferol (Vitamin D) 50,000 Unit Cap, 1 TAB PO QWEEKLY for 28 Days, #4 02/22/24 Atorvastatin Calcium (ATORVASTATIN CALCIUM) 20 Mg Tab, 1 TAB PO DAILY 02/15/24 Amlodipine Besylate (Amlodipine Besylate) 5 Mg Tab, 1 TAB PO DAILY 02/15/24 B-Complex W/ C & Folic Acid ([facility]) Tab, 1 TAB PO DAILY 02/15/24 Past Medical History Patient Family History: Patient reports no known family medical history. H&P Exam Vital Signs Vital Signs Date Time Temp Pulse Resp B/P (MAP) Pulse Ox O2 Delivery O2 Flow Rate FiO2 08/25/24 19:54 71 20 77/58 (64) 100 50 08/25/24 18:55 Nasal Cannula* 1 08/25/24 16:36 96.6 96.6 Labs/Xrays Labs Test 08/25/24 20:13 08/25/24 19:29 08/25/24 17:38 08/25/24 17:00 Range/Units POC Glucose 278 H 70-106 mg/dl White Blood Count 13.1 H 4.4-10.8 10^3/uL Red Blood Count 3.84 L 4.0-5.20 10^6/uL Hemoglobin 10.8 L 12.2-16.2 g/dL Hematocrit 36.0 36.0-46.0 % Mean Corpuscular Volume 93.8 80.0-100.0 fL Mean Corpuscular Hemoglobin 28.0 28.0-32.0 pg Mean Corpuscular Hemoglobin Concent 29.9 L 32.0-36.0 g/dL Red Cell Distribution Width 18.6 H 11.8-14.3 % Platelet Count 273 140-450 10^3/uL Mean Platelet Volume 8.1 6.9-10.8 fL Neutrophils (%) (Auto) 37.0-80.0 % Lymphocytes (%) (Auto) 10.0-50.0 % Monocytes (%) (Auto) 0.0-12.0 % Basophils (%) (Auto) 0.0-2.0 % Neutrophils # (Auto) 1.6-8.6 10 ^3/uL Lymphocytes # (Auto) 0.4-5.4 10 ^3/uL Monocytes # (Auto) 0-1.3 10 ^3/uL Differential Total Cells Counted 100.0 100 Neutrophils % (Manual) 90 H 37.0-80.0 Band Neutrophils % (Manual) 2 Lymphocytes % (Manual) 5 L 10.0-50.0 Monocytes % (Manual) 3 0-12 Eosinophils % (Manual) 0 0-7 Basophils % (Manual) 0 0.0-2.0 Metamyelocytes % (manual) 0 Myelocytes % (Manual) 0 Promyelocytes % (Manual) 0 Blast Cells % (Manual) 0 Reactive Lymphocytes 0 Platelet Estimate Adequate Sodium Level 134 L 136-145 mmol/L Potassium Level 5.9 *H 3.5-5.1 mmol/L Chloride Level 88 L 98-107 mmol/L Carbon Dioxide Level 16 L 20-31 mmol/L Anion Gap 30 H 5-15 Blood Urea Nitrogen 74 H 9-23 mg/dL Creatinine 3.77 H 0.550-1.02 mg/dL Glomerular Filtration Rate Calc 12 >90 mL/min BUN/Creatinine Ratio 19.6 10.0-20.0 Serum Glucose 327 H 74-106 mg/dL Calcium Level 10.3 8.7-10.4 mg/dL Total Bilirubin 0.3 0.2-1.0 mg/dL Aspartate Amino Transferase (AST) 36 13-40 U/L Alanine Aminotransferase (ALT) 40 7-40 U/L Alkaline Phosphatase 131 H 46-116 U/L B-Type Natriuretic Peptide 698.07 0-100 pg/mL Total Protein 6.2 5.7-8.2 g/dL Albumin 3.2 3.2-4.8 g/dL SHANE MORALES NP Aug 25, 2024 20:43
[2024-08-25] MEDS ORDERED: HYDROcodone-ACET 5/325MG TAB PO PRN (20:45)
[2024-08-25] MEDS ORDERED: ACETAMINOPHEN 325 MG TAB PO PRN (20:45)
[2024-08-25] MEDS ORDERED: DOCUSATE SOD 100 MG CAP PO PRN (20:45)
[2024-08-25] MEDS ORDERED: NITROGLYCERIN 0.4 MG SL TAB SL PRN (20:45)
[2024-08-25 21:57] VITALS: O2SAT 100
[2024-08-25] MEDS: DOXYCYCLINE 100 MG TAB/CAP PO SCH (22:00)
[2024-08-25 22:33] LABS: Alanine Aminotransferase 33 U/L (7-40); Albumin 3.3 g/dL (3.2-4.8); Anion Gap 32 (5-15); Aspartate Aminotransferase 24 U/L (13-40); BUN/Creatinine Ratio 16.8 (10.0-20.0); Potassium 5.1 mmol/L (3.5-5.1)
[2024-08-25 22:34] LABS: Total Protein 6.5 g/dL (5.7-8.2)
[2024-08-25 22:45] LABS: Blood Urea Nitrogen 67 mg/dL (9-23); Carbon Dioxide 13 mmol/L (20-31); Chloride 90 mmol/L (98-107); Glucose 218 mg/dL (74-106); Sodium 135 mmol/L (136-145)
[2024-08-25 22:46] LABS: Alkaline Phosphatase 138 U/L (46-116); Bilirubin, Total 0.3 mg/dL (0.2-1.0); Calcium 10.7 mg/dL (8.7-10.4)
[2024-08-25 22:53] LABS: Lactic Acid w/Reflex 18.8 mmol/L (0.4-2.0)
[2024-08-25] MEDS: ACCU-CHEK COMFORT CURVE STRIP VI SCH (23:18)
[2024-08-25] MEDS: InsuLIN REG 1unit/0.01ml Soln (100units/ml) SC SCH (23:22)
[2024-08-26] VITALS (9 sets, daily range): BP systolic 104–129; BP diastolic 45–72; PULSE 71–91; RESP 16–22; TEMP 97.6–97.8; O2SAT 94–100
[2024-08-26] MEDS: MORPHINE SULFATE INJ 2 MG/ml SYRG IV PRN (02:05)
[2024-08-26] MEDS: ONDANSETRON HCL 4 MG/2 ML VIAL IV PRN (02:08)
--- NOTE | 2024-08-26 06:39 | DVHINCON2 ---
Date of service: Aug 26, 2024 Referring Physician Shane Morales NP History of Present Illness This is a 78-year old female who initially presented (08/25/2024) with hypoglycemia and hypotension. Patient herself is a poor historian which information was obtained via chart review and communication with accompanying eliseo raymundo. As per ED provider notes, prior to initial arrival patient was undergoing hemodialysis where she became hypotensive with a reported SBP of 88mmHg (later improved). Patient at that time was also reportedly hypoglycemic with a field glucose level of 53 and was subsequently administered an AMP of D50% by EMS which serum blood glucose level upon ED arrival was found to be 327. Patient was found to have an initial lactic acid level of 17.7 with subsequent repeat levels of 18.8, and 12.0. Beta-hydroxybutyric acid level was found elevated at 2.027 in presence of an initial CO2 level of 16 with an anion gap of 30 (later improved). It is of note the patient has a known history of diabetes mellitus with current A1C level of 8.2 and had reportedly been initiated on Metformin therapy within the out-patient setting which could have attributed to the clinical picture however as patient presented with hypotension in presence of elevated lactic acid levels, and leukocytosis (13.1 to 15.7), presentation questions superi mposing sepsis in the setting of pneumonia as chest imaging has revealed bilateral pulmonary opacities. Upon ED arrival, initial HS troponin level was found minimally elevated at 43, with subsequent trend of 41, and 39. Initial 12- lead electrocardiogram upon arrival revealed sinus rhythm at 77bpm, with non- specific ST/T changes. Patient is known to have a previous history of chronic systolic heart failure which she was found to have an LVEF of 20% as per Echocardiogram (02/15/2024) and at that time had underwent cardiac catheterization (02/25/2024) revealing non-obstructive coronary artery disease consistent with non-ischemic cardiomyopathy which patient was subsequently initiated on GDMT for. Patient later underwent admission at this facility in May of 2024 and had underwent Echocardiogram (05/23/2024) revealing an improved LV function of 35-40%. In observation of the aforementioned above, LDL at present is optimized at 15. BNP level is found elevated at 698 which chest imaging has furthermore revealed consistency with congestive heart failure and presence of bilateral pleural effusions (right greater than left) for which both Nephrology services and Pulmonology services are involved in the patients care. As the patient initially presented and was found to have abnormal elevated in HS troponin levels, cardiology services were involved by primary team request for cardiac aspects of care. Past Medical History Past medical history reportedly includes end-stage renal disease on hemodialysi s, diabetes mellitus II, hypertension, hyperlipidemia, systolic heart failure, non-ischemic cardiomyopathy, non-obstructive coronary artery disease, dementia, pulmonary hypertension, old history of CVA, repeated pleural effusion and status post repeated pleural tap by Pulmonary, history of pneumothorax, status post AV fistula creation Echocardiogram (02/15/2024) revealed ejection fraction of 20%, pseudonormal LV filling, [id number] aortic insufficiency/mitral regurgitation/tricuspid regurgitation, large pleural effusion and right ventricular systolic pressure of 62 mmHg. Echocardiogram (05/23/2024) revealed Dilated 4 chambers. Left ventricle: Mild concentric left ventricular hypertrophy was seen. Left ventricle was mildly dilated. LVEF was 35-40%. Mild diffuse hypokinesis of left ventricle was seen. Pseudo normal LV filling was observed. Right ventricle was dilated with reduced systolic function. Both atria were mildly dilated. Aortic valve: Aortic valve was trileaflet. Aortic sclerosis with no stenosis was seen. There was no aortic insufficiency. There was mild mitral regurgitation. There was moderate tricuspid regurgitation. There was trivial pulmonary valve insufficiency. Right ventricular systolic pressure was assessed at 55 mm Hg. There was no pericardial effusion. Left heart catheterization (02/25/2024) revealed non-obstructive coronary artery disease, and ischemic cardiomyopathy and ejection fraction of 25% Past Surgical History Reviewed Family History: Patient reports no known family medical history. Allergies: Coded Allergies: No Known Drug Allergy (Verified Allergy, Unknown, 01/07/22) Home Meds Active Scripts Azithromycin (Azithromycin) 250 Mg Tab, 250 MG PO DAILY MDD 500 for 5 Days, #6 TAB 0 Refills 2 TABLETS ORALLY ON DAY ONE, THEN 1 TABLET ORALLY DAILY FOR 4 DAYS Prov:[facility]ANE [employer]ES [employer] 05/25/24 Carvedilol (COREG) 3.125 Mg Tab, 3.125 MG PO Q12HR for 30 Days, #60 TAB Prov:SHANE MORALES [employer] 03/28/24 Reported Medications Ergocalciferol (Vitamin D) 50,000 Unit Cap, 1 TAB PO QWEEKLY for 28 Days, #4 02/22/24 Atorvastatin Calcium (ATORVASTATIN CALCIUM) 20 Mg Tab, 1 TAB PO DAILY 02/15/24 Amlodipine Besylate (Amlodipine Besylate) 5 Mg Tab, 1 TAB PO DAILY 02/15/24 B-Complex W/ C & Folic Acid (Rosalia-Karen Rx) Tab, 1 TAB PO DAILY 02/15/24 Current Medications Current Medications Medications (Trade) Dose Ordered Sig/Nader Route PRN Reason Start Time Stop Time Status Last Admin Acetaminophen/ Hydrocodone Bitart ([place] 5/325MG Tab) 1 tab Q4HP PRN PO MODERATE PAIN (4-6 PAIN SCALE) 08/25/24 20:45 Ondansetron HCl (Zofran) 4 mg Q4HP PRN IV NAUSEA / VOMITING 08/25/24 20:45 08/26/24 02:08 Docusate Sodium (Colace Capsule) 100 mg BIDPRN PRN PO FOR CONSTIPATION 08/25/24 20:45 Acetaminophen (Tylenol Tablet) 650 mg Q6HP PRN PO PAIN SCALE 1-3 OR TEMP>100.4 08/25/24 20:45 Nitroglycerin (Ntrostat Sublingual) 0.4 mg Q5MINP PRN SL FOR CHEST PAIN 08/25/24 20:45 Morphine Sulfate 2 mg Q30M PRN IV FOR CHEST PAIN 08/25/24 20:45 08/26/24 05:05 Diagnostic Test (Pha) (Accu-Chek Comfort Curve T) 1 strip ACHS 08/25/24 22:00 08/25/24 23:18 Insulin Human Regular (InsuLIN R) ACHS SC 08/25/24 22:00 08/25/24 23:22 Dextrose 50 ml UD PRN IV Blood Sugar LESS THAN 60 08/25/24 20:45 Ceftriaxone Sodium 50 ml @ 100 mls/hr DAILY IV 08/26/24 10:00 Albuterol (Ventolin Medneb) 2.5 mg Q4HP PRN NEB SHORTNESS OF BREATH 08/25/24 20:45 Doxycycline Monohydrate (Vibramycin Tablet) 100 mg BID PO 08/25/24 22:00 Review of Systems A 14-point review of systems is negative unless otherwise noted above Vital Signs Vital Signs Date Time Temp Pulse Resp B/P (MAP) Pulse Ox O2 Delivery O2 Flow Rate FiO2 08/26/24 05:06 83 16 146/80 08/26/24 03:11 100 2.0 28 08/25/24 21:57 Nasal Cannula 08/25/24 16:36 96.6 96.6 Physical Exam Heart: S1 and S2 regular. The patient is in sinus rhythm. Lungs: Scattered rhonchi. Abdomen: Benign. Extremities: Distal pulses palpable, 2+. No evidence for peripheral edema Labs/Diagnostic Data Labs Test 08/26/24 05:57 08/26/24 00:52 08/25/24 22:07 08/25/24 20:13 Range/Units POC Glucose 141 H 70-106 mg/dl Lactic Acid Level 18.8 *H 0.4-2.0 mmol/L Beta-Hydroxybutyric Acid 2.027 H < 0.4 mmol/L Troponin I High Sensitivity 39 *H </=34 ng/L Test 08/25/24 17:00 Range/Units Differential Total Cells Counted 100.0 100 Neutrophils % (Manual) 90 H 37.0-80.0 Band Neutrophils % (Manual) 2 Lymphocytes % (Manual) 5 L 10.0-50.0 Monocytes % (Manual) 3 0-12 Eosinophils % (Manual) 0 0-7 Basophils % (Manual) 0 0.0-2.0 Metamyelocytes % (manual) 0 Myelocytes % (Manual) 0 Promyelocytes % (Manual) 0 Blast Cells % (Manual) 0 Reactive Lymphocytes 0 Platelet Estimate Adequate B-Type Natriuretic Peptide 698.07 0-100 pg/mL Plan/Recommendation ASSESSMENT: This is a 78-year old female who initially presented (08/25/2024) with hypoglycemia and hypotension. Patient herself is a poor historian which information was obtained via chart review and communication with accompanying st aff. As per ED provider notes, prior to initial arrival patient was undergoing hemodialysis where she became hypotensive with a reported SBP of 88mmHg (later improved). Patient at that time was also reportedly hypoglycemic with a field glucose level of 53 and was subsequently administered an AMP of D50% by EMS which serum blood glucose level upon ED arrival was found to be 327. Patient was found to have an initial lactic acid level of 17.7 with subsequent repeat levels of 18.8, and 12.0. Beta-hydroxybutyric acid level was found elevated at 2.027 in presence of an initial CO2 level of 16 with an anion gap of 30 (later improved). It is of note the patient has a known history of diabetes mellitus with current A1C level of 8.2 and had reportedly been initiated on Metformin therapy within the out-patient setting which could have attributed to the clinical picture however as patient presented with hypotension in presence of elevated lactic acid levels, and leukocytosis (13.1 to 15.7), presentation questions superim posing sepsis in the setting of pneumonia as chest imaging has revealed bilateral pulmonary opacities. Upon ED arrival, initial HS troponin level was found minimally elevated at 43, with subsequent trend of 41, and 39. Initial 12- lead electrocardiogram upon arrival revealed sinus rhythm at 77bpm, with non- specific ST/T changes. Patient is known to have a previous history of chronic systolic heart failure which she was found to have an LVEF of 20% as per Echocardiogram (02/15/2024) and at that time had underwent cardiac catheterization (02/25/2024) revealing non-obstructive coronary artery disease consistent with non-ischemic cardiomyopathy which patient was subsequently initiated on GDMT for. Patient later underwent admission at this facility in May of 2024 and had underwent Echocardiogram (05/23/2024) revealing an improved LV function of 35-40%. In observation of the aforementioned above, LDL at present is optimized at 15. BNP level is found elevated at 698 which chest imaging has furthermore revealed consistency with congestive heart failure and presence of bilateral pleural effusions (right greater than left) for which both Nephrology services and Pulmonology services are involved in the patients care. As the patient initially presented and was found to have abnormal elevated in HS troponin levels, cardiology services were involved by primary team request for cardiac aspects of care. Past medical history reportedly includes end-stage renal disease on hemodialysis, diabetes mellitus II, hypertension, hyperlipidemia, systolic heart failure, non-ischemic cardiomyopathy, non-obstructive coronary artery disease, dementia, pulmonary hypertension, old history of CVA, repeated pleural effusion and status post repeated pleural tap by Pulmonary, history of pneumothorax, status post AV fistula creation Echocardiogram (02/15/2024) revealed ejection fraction of 20%, pseudonormal LV filling, [id number] aortic insufficiency/mitral regurgitation/tricuspid regurgitation, large pleural effusion and right ventricular systolic pressure of 62 mmHg. Echocardiogram (05/23/2024) revealed Dilated 4 chambers. Left ventricle: Mild concentric left ventricular hypertrophy was seen. Left ventricle was mildly dilated. LVEF was 35-40%. Mild diffuse hypokinesis of left ventricle was seen. Pseudo normal LV filling was observed. Right ventricle was dilated with reduced systolic function. Both atria were mildly dilated. Aortic valve: Aortic valve was trileaflet. Aortic sclerosis with no stenosis was seen. There was no aortic insufficiency. There was mild mitral regurgitation. There was moderate tricuspid regurgitation. There was trivial pulmonary valve insufficiency. Right ventricular systolic pressure was assessed at 55 mm Hg. There was no pericardial effusion. Left heart catheterization (02/25/2024) revealed non-obstructive coronary artery disease, and ischemic cardiomyopathy and ejection fraction of 25% Hypoglycemia, improving Questionable concern for sepsis in the setting of pneumonia Questionable concern for medication induced lactic acidosis Acute on chronic systolic heart failure, LVEF of 35-40% (05/23/2024) Coronary artery disease, non-obstructive as per [facility] (02/25/2024) Abnormal HS troponins (43, 41, 39), type II physiology Bilateral pleural effusions, right greater than left End stage renal disease on hemodialysis Diabetes mellitus, A1C level of 8.2 Hyperlipidemia, LDL of 15 Hypertension, history of Underlying dementia Hyperkalemia Anemia CARDIAC SUGGESTIONS FOR MANAGEMENT: Request for 2D Echocardiogram Consider Pulmonology/IR evaluation for possible thoracentesis if considered amenable Proceed with GDMT for systolic heart failure as concurrent conditions permit Fluid volume management per Nephrology services given ESRD on HD Proceed with close observation for overt signs of fluid overload Proceed with strict intakes, outputs, and daily weights Proceed with supplemental oxygen as warranted Resume BB/ARNI upon hemodynamic stability On IV antibiotic therapy as per primary team Proceed with close rate and rhythm surveillance Proceed with close hemodynamic surveillance Proceed with optimized blood pressure control Transfuse to sustain HGB level above 7.0 Sustain Magnesium level greater than 2.0 Sustain Potassium level greater than 4.0 Follow up renal function and electrolytes Management of possible sepsis/pneumonia as per primary team/pulmonology Management of diabetes mellitus as per primary team Management of co-morbidities as per primary team Management of ESRD as per Nephrology Management in telemetry Follow up personnel consultant recommendations Will proceed to follow from a cardiac perspective Further recommendations per clinical progression All available diagnostic labs, EKG's, and images were personally reviewed Patient's status, findings, and plan of care was reviewed and discussed with supervising physician Dr. Waggoner, who is in agreement with current plan of care. Plan of care discussed with and agreed upon by patient / primary RN Prognosis: Guarded Thank you for allowing me to participate in the care of this patient. Further recommendations based on patients clinical course and progression, primary attending, and other consultants. Will continue to follow with primary attending. If you have any questions or concerns, please do not hesitate to contact me. A total of 75 minutes was spent reviewing the patient record, examining the pat ient, making a diagnostic and therapeutic plan, discussing this plan with medical personnel, following up on diagnostic studies and following the patient for clinical stability excluding any and all procedures. At least 50% of this time was spent in direct, [id number] contact. Plan discussed with: Other (Patient and Primary RN ) OCTAVIO KENNEDY Aug 26, 2024 06:39
[2024-08-26 06:46] LABS: Basophils % (auto) 0.3 % (0.0-2.0); Eosinophils # (auto) 0 10 ^3/uL (0-0.8); Eosinophils % (auto) 0.2 % (0.0-7.0); Hematocrit 32.1 % (36.0-46.0); Hemoglobin 9.8 g/dL (12.2-16.2); Lymphocytes # (auto) 0.9 10 ^3/uL (0.4-5.4); Monocytes # (auto) 1.1 10 ^3/uL (0-1.3); Neutrophils # (auto) 13.6 10 ^3/uL (1.6-8.6); Neutrophils % (auto) 86.6 % (37.0-80.0); White Blood Cell 15.7 10^3/uL (4.4-10.8)
[2024-08-26 06:49] LABS: Basophils # (auto) 0.1 10 ^3/uL (0-0.2); Lymphocytes % (auto) 5.7 % (10.0-50.0); Mean Corpuscular Hemoglobin 28.3 pg (28.0-32.0); Mean Corpuscular Hgb Conc. 30.4 g/dL (32.0-36.0); Mean Corpuscular Volume 92.9 fL (80.0-100.0); Monocytes % (auto) 7.2 % (0.0-12.0); Nucleated Red Blood Cells % 0.2 %; Platelet Count (auto) 283 10^3/uL (140-450); Red Blood Cells 3.46 10^6/uL (4.0-5.20); Red Cell Distribution Width 18.2 % (11.8-14.3)
[2024-08-26 06:52] LABS: Alanine Aminotransferase 34 U/L (7-40); Albumin 3.3 g/dL (3.2-4.8); Alkaline Phosphatase 127 U/L (46-116); Anion Gap 24 (5-15); Aspartate Aminotransferase 30 U/L (13-40); BUN/Creatinine Ratio 18.9 (10.0-20.0); Blood Urea Nitrogen 75 mg/dL (9-23); Calcium 10.7 mg/dL (8.7-10.4); Carbon Dioxide 18 mmol/L (20-31); Chloride 94 mmol/L (98-107); Potassium 5.2 mmol/L (3.5-5.1); Sodium 136 mmol/L (136-145); Total Protein 6.3 g/dL (5.7-8.2)
[2024-08-26 06:54] LABS: Bilirubin, Total 0.2 mg/dL (0.2-1.0); Glucose 13 mg/dL (74-106)
[2024-08-26 07:03] LABS: Triglycerides 42 mg/dL (< 150)
[2024-08-26 07:04] LABS: LDL Cholesterol 15 mg/dL (< 100)
[2024-08-26 07:05] LABS: Cholesterol 78 mg/dL (< 200); HDL Cholesterol 46 mg/dL (40-59)
[2024-08-26] MEDS: DEXTROSE (50%) 50ML SYRG IV PRN (08:09)
--- NOTE | 2024-08-26 09:48 | DVH ---
CHEST RADIOGRAPH Indication: CHF Technique: Single frontal view of the chest was obtained Comparison: XY CHEST PORTABLE on DOS: 08/25/24, XY CHEST PORTABLE on DOS: 05/20/24, XY CHEST PORTABLE on DOS: 03/24/24, XY CHEST PORTABLE on DOS: 03/24/24, XY CHEST XRAY 1 VIEW on DOS: 03/17/24 FINDINGS: The cardiac silhouette is enlarged. The lungs demonstrate bilateral pulmonary airspace opacities diff usely, [id number]-left. The pulmonary vasculature is from. Large right pleural effusion, smal l left pleural effusion with interval increase in the right pleural effusion. Aortic atherosclerotic . There is no pneumothorax. IMPRESSION: 1. As above << >>
[2024-08-26] MEDS: D5W 5% 1,000 ML IV SCH (10:27)
[2024-08-26] MEDS: ALBUMIN 25% 100 ML IV ONE (10:41)
[2024-08-26] MEDS: cefTRIAXone 1GM/50ML D5W 50 ML IV SCH (10:43)
--- NOTE | 2024-08-26 12:38 | DVHPN2 ---
Progress Note - Dictate Date Seen: Aug 26, 2024 Medical Necessity Reason Pt with a Central, PICC or Fol: No vital signs Vital Sign Date Time Temp Pulse Resp B/P (MAP) Pulse Ox O2 Delivery O2 Flow Rate FiO2 08/26/24 12:00 79 08/26/24 11:00 16 106/44 (64) 93 08/26/24 08:55 Nasal Cannula* 2 28 08/26/24 07:30 98.1 98.1 Total Intake and Output 08/25/24 08/25/24 08/26/24 15:00 23:00 07:00 Intake Total 170 ml Balance 170 ml medications Current Medications Medications Dose Ordered Sig/Nader Route Start Time Stop Time Status Last Admin Dose Admin Acetaminophen/ Hydrocodone Bitart 1 tab Q4HP PRN PO 08/25/24 20:45 Ondansetron HCl 4 mg Q4HP PRN IV 08/25/24 20:45 08/26/24 02:08 4 MG Docusate Sodium 100 mg BIDPRN PRN PO 08/25/24 20:45 Acetaminophen 650 mg Q6HP PRN PO 08/25/24 20:45 Nitroglycerin 0.4 mg Q5MINP PRN SL 08/25/24 20:45 Morphine Sulfate 2 mg Q30M PRN IV 08/25/24 20:45 08/26/24 05:05 2 MG Diagnostic Test (Pha) 1 strip ACHS 08/25/24 22:00 08/26/24 11:30 1 STRIP Insulin Human Regular ACHS SC 08/25/24 22:00 08/25/24 23:22 2 UNITS Dextrose 50 ml UD PRN IV 08/25/24 20:45 08/26/24 10:21 50 ML Ceftriaxone Sodium 50 ml @ 100 mls/hr DAILY IV 08/26/24 10:00 08/26/24 10:43 100 MLS/HR Albuterol 2.5 mg Q4HP PRN NEB 08/25/24 20:45 Dextrose 1,000 ml @ 50 mls/hr Q20H IV 08/26/24 08:00 08/26/24 10:27 50 MLS/HR Doxycycline Hyclate 100 ml @ 50 mls/hr Q12H IV 08/26/24 12:30 UNV objective General Appearance: alert, no distress HEENT: EOMI, PERRLA, normal external inspect of ears, no icterus, no nasal drainage Neck: no carotid bruit, no jugular venous distention (JVD), no lymphadenopathy Chest: normal thorax Respiratory: clear to auscultation, normal air movement Cardiovascular: regular rate and rhythm, no diastolic murmur, no jugular venous distention (JVD), no rub, no systolic murmur Abdominal: soft, no hepatomegaly, no mass, no splenomegaly, no tenderness Genitourinary: grossly normal external Musculoskeletal: no joint tenderness, no swelling Extremities: normal pulses, no calf tenderness, no clubbing, no cyanosis, no edema Skin: no bruising, no jaundice, no rash Neurological: alert, No focal deficit laboratory and microbiology Laboratory Tests 08/26/24 05:57 Test 08/26/24 05:57 Range/Units Serum Glucose 13 *L 74-106 mg/dL Problem List 1. PNA Pulmonary consult, monitoring 2. Failure to thrive Monitor 3. Hypoglycemia D5W, monitoring 4. ESRD on HD Nephrology consult, plan for hemodialysis 5. Bilateral Pleural Effusion Medication, monitoring 6. Lactic Acidosis Medication, monitoring Assessment/Plan Subjective: Patient is not awake or alert. Objective: I spoke with the patients daughter and another daughter out of state who spoke [place]. Patient was admitted for altered level of consciousness. Severe hyponatremia was noted, and IV fluids were given. Patient also had severe lactic acidosis. Patient has been filling a prescription for Metformin. Plan: Pulmonary consult. Patient has a large pleural effusion. Start hemodialysis. Continue antibiotics for pneumonia. Plan discussed with: Patient, Other SHANE MORALES NP Aug 26, 2024 12:38
[2024-08-26] MEDS: DOXYCYCLINE 100MG/100ML 100 ML IV SCH (13:10)
--- NOTE | 2024-08-26 16:17 | DVHINCON2 ---
Date of service: Aug 26, 2024 Referring Physician Shane Morales NP Reason for Consultation [facility] History of Present Illness This is a 78-year-old female with a history of end-stage kidney disease on hemodialysis brought into the emergency room from the dialysis center because of hypotension. Patient was noted to be hypotensive and hypoglycemic in the emergency room. Started on D10. Also noted to have the lactate level of 18. As per the history patient was started on metformin a few months ago by her primary Dr. Nephrology consulted for dialysis. Past Medical History End-stage kidney disease on hemodialysis Anemia in CKD Type 2 diabetes Past Surgical History Dialysis access Family History: Patient reports no known family medical history. Family History Noncontributory Social History Noncontributory Allergies: Coded Allergies: No Known Drug Allergy (Verified Allergy, Unknown, 01/07/22) Home Meds Active Scripts Azithromycin (Azithromycin) 250 Mg Tab, 250 MG PO DAILY MDD 500 for 5 Days, #6 TAB 0 Refills 2 TABLETS ORALLY ON DAY ONE, THEN 1 TABLET ORALLY DAILY FOR 4 DAYS Prov:SHANE MORALES NP 05/25/24 Carvedilol (COREG) 3.125 Mg Tab, 3.125 MG PO Q12HR for 30 Days, #60 TAB Prov:SHANE MORALES NP 03/28/24 Reported Medications Ergocalciferol (Vitamin D) 50,000 Unit Cap, 1 TAB PO QWEEKLY for 28 Days, #4 02/22/24 Atorvastatin Calcium (ATORVASTATIN CALCIUM) 20 Mg Tab, 1 TAB PO DAILY 02/15/24 Amlodipine Besylate (Amlodipine Besylate) 5 Mg Tab, 1 TAB PO DAILY 02/15/24 B-Complex W/ C & Folic Acid ([facility]) Tab, 1 TAB PO DAILY 02/15/24 Current Medications Current Medications Medications (Trade) Dose Ordered Sig/Nader Route PRN Reason Start Time Stop Time Status Last Admin Acetaminophen/ Hydrocodone Bitart ([place] 5/325MG Tab) 1 tab Q4HP PRN PO MODERATE PAIN (4-6 PAIN SCALE) 08/25/24 20:45 Ondansetron HCl (Zofran) 4 mg Q4HP PRN IV NAUSEA / VOMITING 08/25/24 20:45 08/26/24 02:08 Docusate Sodium (Colace Capsule) 100 mg BIDPRN PRN PO FOR CONSTIPATION 08/25/24 20:45 Acetaminophen (Tylenol Tablet) 650 mg Q6HP PRN PO PAIN SCALE 1-3 OR TEMP>100.4 08/25/24 20:45 Nitroglycerin (Ntrostat Sublingual) 0.4 mg Q5MINP PRN SL FOR CHEST PAIN 08/25/24 20:45 Morphine Sulfate 2 mg Q30M PRN IV FOR CHEST PAIN 08/25/24 20:45 08/26/24 05:05 Diagnostic Test (Pha) (Accu-Chek Comfort Curve T) 1 strip ACHS 08/25/24 22:00 08/26/24 11:30 Insulin Human Regular (InsuLIN R) ACHS SC 08/25/24 22:00 08/25/24 23:22 Dextrose 50 ml UD PRN IV Blood Sugar LESS THAN 60 08/25/24 20:45 08/26/24 10:21 Ceftriaxone Sodium 50 ml @ 100 mls/hr DAILY IV 08/26/24 10:00 08/26/24 10:43 Albuterol (Ventolin Medneb) 2.5 mg Q4HP PRN NEB SHORTNESS OF BREATH 08/25/24 20:45 Doxycycline Monohydrate (Vibramycin Tablet) 100 mg BID PO 08/25/24 22:00 08/26/24 12:33 DC Dextrose 1,000 ml @ 50 mls/hr Q20H IV 08/26/24 08:00 08/26/24 10:27 Doxycycline Hyclate 100 ml @ 50 mls/hr Q12H IV 08/26/24 12:30 08/26/24 13:10 Review of Systems Unable to obtain Vital Signs Vital Signs Date Time Temp Pulse Resp B/P (MAP) Pulse Ox O2 Delivery O2 Flow Rate FiO2 08/26/24 14:00 77 16 106/40 (62) 99 08/26/24 08:55 Nasal Cannula* 2 28 08/26/24 07:30 98.1 98.1 Physical Exam Patient was awake. Agitated. Confused. HEENT: Normocephalic. Lungs: Diminished breath sounds at bases CVS: S1, S2 regular rate rhythm Abdomen: Soft, bowel sounds present [employer]: No focal deficits Extremities: No edema Labs/Diagnostic Data Labs Test 08/26/24 13:07 08/26/24 11:57 08/26/24 06:44 08/26/24 06:39 Range/Units Lactic Acid Level 12.0 *H 0.4-2.0 mmol/L POC Glucose 128 H 70-106 mg/dl Triglycerides Level 42 < 150 mg/dL Cholesterol Level 78 < 200 mg/dL LDL Cholesterol 15 < 100 mg/dL HDL Cholesterol 46 40-59 mg/dL Test 08/26/24 05:57 08/25/24 22:07 08/25/24 20:13 08/25/24 17:00 Range/Units White Blood Count 15.7 H 4.4-10.8 10^3/uL Red Blood Count 3.46 L 4.0-5.20 10^6/uL Hemoglobin 9.8 L 12.2-16.2 g/dL Hematocrit 32.1 #L 36.0-46.0 % Mean Corpuscular Volume 92.9 80.0-100.0 fL Mean Corpuscular Hemoglobin 28.3 28.0-32.0 pg Mean Corpuscular Hemoglobin Concent 30.4 L 32.0-36.0 g/dL Red Cell Distribution Width 18.2 H 11.8-14.3 % Platelet Count 283 140-450 10^3/uL Mean Platelet Volume 8.0 6.9-10.8 fL Neutrophils (%) (Auto) 86.6 H 37.0-80.0 % Lymphocytes (%) (Auto) 5.7 L 10.0-50.0 % Monocytes (%) (Auto) 7.2 0.0-12.0 % Eosinophils (%) (Auto) 0.2 0.0-7.0 % Basophils (%) (Auto) 0.3 0.0-2.0 % Neutrophils # (Auto) 13.6 H 1.6-8.6 10 ^3/uL Lymphocytes # (Auto) 0.9 0.4-5.4 10 ^3/uL Monocytes # (Auto) 1.1 0-1.3 10 ^3/uL Eosinophils # (Auto) 0 0-0.8 10 ^3/uL Basophils # (Auto) 0.1 0-0.2 10 ^3/uL Nucleated Red Blood Cells 0.2 % Sodium Level 136 136-145 mmol/L Potassium Level 5.2 H 3.5-5.1 mmol/L Chloride Level 94 L 98-107 mmol/L Carbon Dioxide Level 18 L 20-31 mmol/L Anion Gap 24 H 5-15 Blood Urea Nitrogen 75 H 9-23 mg/dL Creatinine 3.97 H 0.550-1.02 mg/dL Glomerular Filtration Rate Calc 11 >90 mL/min BUN/Creatinine Ratio 18.9 10.0-20.0 Serum Glucose 13 *L 74-106 mg/dL Hemoglobin A1c 8.2 H <5.7 % A1C Calcium Level 10.7 H 8.7-10.4 mg/dL Total Bilirubin 0.2 0.2-1.0 mg/dL Aspartate Amino Transferase (AST) 30 13-40 U/L Alanine Aminotransferase (ALT) 34 7-40 U/L Alkaline Phosphatase 127 H 46-116 U/L Total Protein 6.3 5.7-8.2 g/dL Albumin 3.3 3.2-4.8 g/dL Beta-Hydroxybutyric Acid 2.027 H < 0.4 mmol/L Troponin I High Sensitivity 39 *H </=34 ng/L Differential Total Cells Counted 100.0 100 Neutrophils % (Manual) 90 H 37.0-80.0 Band Neutrophils % (Manual) 2 Lymphocytes % (Manual) 5 L 10.0-50.0 Monocytes % (Manual) 3 0-12 Eosinophils % (Manual) 0 0-7 Basophils % (Manual) 0 0.0-2.0 Metamyelocytes % (manual) 0 Myelocytes % (Manual) 0 Promyelocytes % (Manual) 0 Blast Cells % (Manual) 0 Reactive Lymphocytes 0 Platelet Estimate Adequate B-Type Natriuretic Peptide 698.07 0-100 pg/mL Assessment End-stage kidney disease on hemodialysis Encephalopathy Bilateral pneumonia Lactic acidosis secondary to metformin Hypotension Hyperkalemia Bilateral pleural effusion Hypoglycemia Hypercalcemia Plan/Recommendation Patient being dialyzed today. Lactic acid levels improving. Continue with the IV antibiotics. Pulmonary evaluation for bilateral pneumonia and pleural effusion We will follow up on BMP and lactate levels. Plan discussed with: Other SHANE LOPEZ MD Aug 26, 2024 16:17
--- NOTE | 2024-08-26 16:21 | DVHINCON2 ---
Date of service: Aug 26, 2024 Referring Physician NIRU Morales Reason for Consultation AHRF and pleural effusion. History of Present Illness 78-year old woman with PMHx including hx of pneumothorax and recurrent pleural effusions, ESRD on hemodialysis, DM II, hypertension, hyperlipidemia, CAD who initially presented (08/25/2024) with hypoglycemia and hypotension. Per ED provider notes, pt became hypotensive during dialysis with a reported SBP of 88mmHg (later improved). She was also reportedly hypoglycemic with a field glucose level of 53 and was subsequently administered an AMP of D50% by EMS which serum blood glucose level upon ED arrival was found to be 327. Patient was found to have an initial lactic acid level of 17.7 with subsequent repeat levels of 18.8, and 12.0. Beta-hydroxybutyric acid level was found elevated at 2.027 in presence of an initial CO2 level of 16 with an anion gap of 30 (later i mproved). HbA1C level of 8.2. Leukocytosis (13.1 to 15.7). Question of sepsis in the setting of pneumonia as chest imaging revealed bilateral pulmonary opacities. Patient was admitted for further care and pulmonary consultation is requested for evaluation and management of AHRF and pleural effusion. Review of Systems: 14-point review of systems negative unless otherwise noted above. Past Medical History: ESRD on hemodialysis, diabetes mellitus II, hypertension, hyperlipidemia, systolic heart failure, non-ischemic cardiomyopathy, non-obstructive coronary artery disease, dementia, pulmonary hypertension, old history of CVA. Recurrent pleural effusion and status post repeated pleural tap by Pulmonary, history of pneumothorax. Past Surgical History: Left heart cath. AV fistula. Medications: Reviewed. Allergies: No known drug allergies. Family History: No family history of premature CAD. No family history of lung disorders. Social History: Nonsmoker. No alcohol or illicit drug use. Family History: Patient reports no known family medical history. Allergies: Coded Allergies: No Known Drug Allergy (Verified Allergy, Unknown, 01/07/22) Home Meds Active Scripts Azithromycin (Azithromycin) 250 Mg Tab, 250 MG PO DAILY MDD 500 for 5 Days, #6 TAB 0 Refills 2 TABLETS ORALLY ON DAY ONE, THEN 1 TABLET ORALLY DAILY FOR 4 DAYS Prov:SHANE MORALES NP 05/25/24 Carvedilol (COREG) 3.125 Mg Tab, 3.125 MG PO Q12HR for 30 Days, #60 TAB Prov:SHANE MORALES [employer] 03/28/24 Reported Medications Ergocalciferol (Vitamin D) 50,000 Unit Cap, 1 TAB PO QWEEKLY for 28 Days, #4 02/22/24 Atorvastatin Calcium (ATORVASTATIN CALCIUM) 20 Mg Tab, 1 TAB PO DAILY 02/15/24 Amlodipine Besylate (Amlodipine Besylate) 5 Mg Tab, 1 TAB PO DAILY 02/15/24 B-Complex W/ C & Folic Acid ([facility]) Tab, 1 TAB PO DAILY 02/15/24 Current Medications Current Medications Medications (Trade) Dose Ordered Sig/Nader Route PRN Reason Start Time Stop Time Status Last Admin Acetaminophen/ Hydrocodone Bitart ([place] 5/325MG Tab) 1 tab Q4HP PRN PO MODERATE PAIN (4-6 PAIN SCALE) 08/25/24 20:45 Ondansetron HCl (Zofran) 4 mg Q4HP PRN IV NAUSEA / VOMITING 08/25/24 20:45 08/26/24 02:08 Docusate Sodium (Colace Capsule) 100 mg BIDPRN PRN PO FOR CONSTIPATION 08/25/24 20:45 Acetaminophen (Tylenol Tablet) 650 mg Q6HP PRN PO PAIN SCALE 1-3 OR TEMP>100.4 08/25/24 20:45 Nitroglycerin (Ntrostat Sublingual) 0.4 mg Q5MINP PRN SL FOR CHEST PAIN 08/25/24 20:45 Morphine Sulfate 2 mg Q30M PRN IV FOR CHEST PAIN 08/25/24 20:45 08/26/24 05:05 Diagnostic Test (Pha) (Accu-Chek Comfort Curve T) 1 strip ACHS 08/25/24 22:00 08/26/24 11:30 Insulin Human Regular (InsuLIN R) ACHS SC 08/25/24 22:00 08/25/24 23:22 Dextrose 50 ml UD PRN IV Blood Sugar LESS THAN 60 08/25/24 20:45 08/26/24 10:21 Ceftriaxone Sodium 50 ml @ 100 mls/hr DAILY IV 08/26/24 10:00 08/26/24 10:43 Albuterol (Ventolin Medneb) 2.5 mg Q4HP PRN NEB SHORTNESS OF BREATH 08/25/24 20:45 Doxycycline Monohydrate (Vibramycin Tablet) 100 mg BID PO 08/25/24 22:00 08/26/24 12:33 DC Dextrose 1,000 ml @ 50 mls/hr Q20H IV 08/26/24 08:00 08/26/24 10:27 Doxycycline Hyclate 100 ml @ 50 mls/hr Q12H IV 08/26/24 12:30 08/26/24 13:10 Vital Signs Vital Signs Date Time Temp Pulse Resp B/P (MAP) Pulse Ox O2 Delivery O2 Flow Rate FiO2 08/26/24 14:00 77 16 106/40 (62) 99 08/26/24 08:55 Nasal Cannula* 2 28 08/26/24 07:30 98.1 98.1 Physical Exam Gen.: Patient lying in bed in no apparent distress. On supplemental oxygen. Head: Normocephalic, atraumatic. Eyes: EOMI/PERRLA. Ears: Normal hearing. Normal anatomy. Neck/trachea: Trachea midline, supple. Nose: Normal external anatomy. Mouth: Moist mucous membranes. Chest: Decreased air entry bilaterally. No wheezing or rhonchi. Cardiovascular: Positive S1, positive S2. Regular rate and rhythm. Abdomen: Positive bowel sounds in all 4 quadrants. Soft, non-tender, non- distended. : Deferred. Rectal: Deferred. Skin: Warm, dry. Intact. Extremities: 2+ radial pulses bilaterally. No lower extremity edema. Neuro: Awake, alert, oriented x3. No gross motor or sensory deficits. Cranial nerves II through XII intact. Gait not assessed. Labs/Diagnostic Data Labs Test 08/26/24 13:07 08/26/24 11:57 08/26/24 06:44 08/26/24 06:39 Range/Units Lactic Acid Level 12.0 *H 0.4-2.0 mmol/L POC Glucose 128 H 70-106 mg/dl Triglycerides Level 42 < 150 mg/dL Cholesterol Level 78 < 200 mg/dL LDL Cholesterol 15 < 100 mg/dL HDL Cholesterol 46 40-59 mg/dL Test 08/26/24 05:57 08/25/24 22:07 08/25/24 20:13 08/25/24 17:00 Range/Units White Blood Count 15.7 H 4.4-10.8 10^3/uL Red Blood Count 3.46 L 4.0-5.20 10^6/uL Hemoglobin 9.8 L 12.2-16.2 g/dL Hematocrit 32.1 #L 36.0-46.0 % Mean Corpuscular Volume 92.9 80.0-100.0 fL Mean Corpuscular Hemoglobin 28.3 28.0-32.0 pg Mean Corpuscular Hemoglobin Concent 30.4 L 32.0-36.0 g/dL Red Cell Distribution Width 18.2 H 11.8-14.3 % Platelet Count 283 140-450 10^3/uL Mean Platelet Volume 8.0 6.9-10.8 fL Neutrophils (%) (Auto) 86.6 H 37.0-80.0 % Lymphocytes (%) (Auto) 5.7 L 10.0-50.0 % Monocytes (%) (Auto) 7.2 0.0-12.0 % Eosinophils (%) (Auto) 0.2 0.0-7.0 % Basophils (%) (Auto) 0.3 0.0-2.0 % Neutrophils # (Auto) 13.6 H 1.6-8.6 10 ^3/uL Lymphocytes # (Auto) 0.9 0.4-5.4 10 ^3/uL Monocytes # (Auto) 1.1 0-1.3 10 ^3/uL Eosinophils # (Auto) 0 0-0.8 10 ^3/uL Basophils # (Auto) 0.1 0-0.2 10 ^3/uL Nucleated Red Blood Cells 0.2 % Sodium Level 136 136-145 mmol/L Potassium Level 5.2 H 3.5-5.1 mmol/L Chloride Level 94 L 98-107 mmol/L Carbon Dioxide Level 18 L 20-31 mmol/L Anion Gap 24 H 5-15 Blood Urea Nitrogen 75 H 9-23 mg/dL Creatinine 3.97 H 0.550-1.02 mg/dL Glomerular Filtration Rate Calc 11 >90 mL/min BUN/Creatinine Ratio 18.9 10.0-20.0 Serum Glucose 13 *L 74-106 mg/dL Hemoglobin A1c 8.2 H <5.7 % A1C Calcium Level 10.7 H 8.7-10.4 mg/dL Total Bilirubin 0.2 0.2-1.0 mg/dL Aspartate Amino Transferase (AST) 30 13-40 U/L Alanine Aminotransferase (ALT) 34 7-40 U/L Alkaline Phosphatase 127 H 46-116 U/L Total Protein 6.3 5.7-8.2 g/dL Albumin 3.3 3.2-4.8 g/dL Beta-Hydroxybutyric Acid 2.027 H < 0.4 mmol/L Troponin I High Sensitivity 39 *H </=34 ng/L Differential Total Cells Counted 100.0 100 Neutrophils % (Manual) 90 H 37.0-80.0 Band Neutrophils % (Manual) 2 Lymphocytes % (Manual) 5 L 10.0-50.0 Monocytes % (Manual) 3 0-12 Eosinophils % (Manual) 0 0-7 Basophils % (Manual) 0 0.0-2.0 Metamyelocytes % (manual) 0 Myelocytes % (Manual) 0 Promyelocytes % (Manual) 0 Blast Cells % (Manual) 0 Reactive Lymphocytes 0 Platelet Estimate Adequate B-Type Natriuretic Peptide 698.07 0-100 pg/mL Assessment Impression: Acute hypoxic respiratory failure Elevated lactic level CHF exacerbation Fluid overload Right pleural effusion Atelectasis Hypoglycemia Hypotension Altered level of consciousness End-stage renal disease on hemodialysis Plan: On 2 liters/minute via nasal cannula Chest x-ray imaging report reviewed. Bilateral airspace opacities, [id number]. Large right pleural effusion. Small left pleural effusion with interval increase in right pleural effusion. No pneumothorax. Chest ultrasound is being performed. If fluid amenable for thoracentesis Obtain consent for thoracentesis Plan for thoracentesis in the a.m.. WBC count elevated at 15.7 Continue antibiotics Monitor lactic acid Currently 12 Hypoglycemia Accu-Cheks Check PT and INR. Monitor renal function Monitor electrolytes Hemodialysis per nephrology DVT prophylaxis Prognosis: Poor given multiple comorbidities. Rest of plan per hospitalist and other consultants. Thank you NIRU Morales for allowing me to participate in this patient's care. Further recommendations will depend on patient's clinical course. Please do not hesitate to contact me if you have any questions or concerns. This medical document was created using an electronic medical record system with [employer] system. Although this document has been carefully reviewed, there may still be some phonetic and typographical errors. These areas are purely typographical due to imperfections of the software programs, and do not reflect any compromise in the patient's medical care. Plan discussed with: Other (NEERAJ Olguin/NIRU Morales/) TEO BEST MD Aug 26, 2024 16:21
[2024-08-26] MEDS: SODIUM CHL 0.9% 1000 ML BAG XX ONE (16:45)
--- NOTE | 2024-08-26 16:50 | DVH ---
Bilateral Chest Sonogram Date: 08/26/2024 02:30 PM Clinical history: pleural effusion TECHNIQUE: Multiple longitudinal and transverse images through the inferior portion of the right and left chest were obtained with real-time grayscale ultrasound. Images submitted: 3 Findings: Limited sonographic evaluation of the right chest. chest was performed to localize and brianne fluid fo r thoracentesis. There is a small right pleural effusion. pleural effusion. A fluid pocket in the rig ht chest . No pleural effusion noted on left IMPRESSION: 1. Small right pleural effusion. 2. No pleural effusion noted on the left.
[2024-08-26] MEDS: ALBUTEROL SULF 2.5 MG/0.5ML(0.5%) NEB SOLN NEB PRN (19:34)
--- NOTE | 2024-08-26 20:33 | DVHHP2 ---
Admitting Diagnosis: bradycardia, low blood sugar and nausea History of Present Illness H&P is for 08/25/2024 Patient is a 78 year old female with a PHx of dialysis presenting to the ED with bradycardia, low blood sugar and nausea. Patient's family states that the patient has been experiencing nausea and the physician proceeded with dialysis in which it resulted in systolically low BP and low blood sugar. Patient is also a poor historian. While in the emergency department the patient was evaluated by the provider, Labs, vital signs, and imagining monitored. Patient will be admitted for further evaluation and treatment. I discussed admission with the patient/family and is in agreement to treatment plan. Patient Family History: Patient reports no known family medical history. Allergies: Coded Allergies: No Known Drug Allergy (Verified Allergy, Unknown, 01/07/22) Home Meds Active Scripts Azithromycin (Azithromycin) 250 Mg Tab, 250 MG PO DAILY MDD 500 for 5 Days, #6 TAB 0 Refills 2 TABLETS ORALLY ON DAY ONE, THEN 1 TABLET ORALLY DAILY FOR 4 DAYS Prov:SHANE MORALES NP 05/25/24 Carvedilol (COREG) 3.125 Mg Tab, 3.125 MG PO Q12HR for 30 Days, #60 TAB Prov:SHANE MORALES FISH WARDEN 03/28/24 Reported Medications Ergocalciferol (Vitamin D) 50,000 Unit Cap, 1 TAB PO QWEEKLY for 28 Days, #4 02/22/24 Atorvastatin Calcium (ATORVASTATIN CALCIUM) 20 Mg Tab, 1 TAB PO DAILY 02/15/24 Amlodipine Besylate (Amlodipine Besylate) 5 Mg Tab, 1 TAB PO DAILY 02/15/24 B-Complex W/ C & Folic Acid ([facility]) Tab, 1 TAB PO DAILY 02/15/24 Current Medications Current Medications Medications (Trade) Dose Ordered Sig/Nader Route PRN Reason Start Time Stop Time Status Last Admin Acetaminophen/ Hydrocodone Bitart ([place] 5/325MG Tab) 1 tab Q4HP PRN PO MODERATE PAIN (4-6 PAIN SCALE) 08/25/24 20:45 Ondansetron HCl (Zofran) 4 mg Q4HP PRN IV NAUSEA / VOMITING 08/25/24 20:45 08/26/24 02:08 Docusate Sodium (Colace Capsule) 100 mg BIDPRN PRN PO FOR CONSTIPATION 08/25/24 20:45 Acetaminophen (Tylenol Tablet) 650 mg Q6HP PRN PO PAIN SCALE 1-3 OR TEMP>100.4 08/25/24 20:45 Nitroglycerin (Ntrostat Sublingual) 0.4 mg Q5MINP PRN SL FOR CHEST PAIN 08/25/24 20:45 Morphine Sulfate 2 mg Q30M PRN IV FOR CHEST PAIN 08/25/24 20:45 08/26/24 05:05 Diagnostic Test (Pha) (Accu-Chek Comfort Curve T) 1 strip ACHS 08/25/24 22:00 08/26/24 17:00 Insulin Human Regular (InsuLIN R) ACHS SC 08/25/24 22:00 08/25/24 23:22 Dextrose 50 ml UD PRN IV Blood Sugar LESS THAN 60 08/25/24 20:45 08/26/24 18:14 Ceftriaxone Sodium 50 ml @ 100 mls/hr DAILY IV 08/26/24 10:00 08/26/24 10:43 Albuterol (Ventolin Medneb) 2.5 mg Q4HP PRN NEB SHORTNESS OF BREATH 08/25/24 20:45 08/26/24 19:34 Doxycycline Monohydrate (Vibramycin Tablet) 100 mg BID PO 08/25/24 22:00 08/26/24 12:33 DC Dextrose 1,000 ml @ 50 mls/hr Q20H IV 08/26/24 08:00 08/26/24 10:27 Doxycycline Hyclate 100 ml @ 50 mls/hr Q12H IV 08/26/24 12:30 08/26/24 13:10 Review of Systems Constitutional: denies chills, denies fever, denies malaise Eyes: denies eye pain, denies vision change ENT: denies ear pain, denies headache, denies nasal congestion, denies painful swallowing, denies voice change Cardiovascular: denies edema, denies orthopnea, denies paroxysmal nocturnal dyspnea Respiratory: denies cough, denies shortness of breath Gastrointestinal: denies constipation, denies diarrhea, denies vomiting Genitourinary: denies dysuria, denies frequent urination, denies urethral discharge Musculoskeletal: denies back pain, denies joint pain, denies muscle pain Skin: denies bruising, denies itching, denies rash Neurological: denies headache, denies sensory changes Psychiatric: denies anxiety, denies depression Endocrine: denies polydipsia, denies polyuria Hematologic/Lymphatic: denies easy bleeding, denies easy bruising, denies enlarged lymph nodes Allergic/Immunologic: denies allergy, denies hives Vital Signs Vital Signs Date Time Temp Pulse Resp B/P (MAP) Pulse Ox O2 Delivery O2 Flow Rate FiO2 08/26/24 19:40 91 20 96 08/26/24 19:34 Nasal Cannula 3.0 08/26/24 19:34 32 08/26/24 18:51 97.6 109/45 (66) 97.6 Physical Exam General Appearance: alert, no distress HEENT: EOMI, PERRLA, normal external inspect of ears, no icterus, no nasal drainage Neck: no carotid bruit, no jugular venous distention (JVD), no lymphadenopathy Chest: normal thorax Respiratory: clear to auscultation, normal air movement Cardiovascular: regular rate and rhythm, no diastolic murmur, no jugular venous distention (JVD), no rub, no systolic murmur Abdominal: soft, no hepatomegaly, no mass, no splenomegaly, no tenderness Genitourinary: grossly normal external Musculoskeletal: no joint tenderness, no swelling Extremities: normal pulses, no calf tenderness, no clubbing, no cyanosis, no edema Skin: no bruising, no jaundice, no rash Neurological: alert, No focal deficit Results Labs Test 08/26/24 18:52 08/26/24 18:37 08/26/24 06:44 08/26/24 06:39 Range/Units POC Glucose 69 L 70-106 mg/dl Lactic Acid Level 7.0 *H 0.4-2.0 mmol/L Triglycerides Level 42 < 150 mg/dL Cholesterol Level 78 < 200 mg/dL LDL Cholesterol 15 < 100 mg/dL HDL Cholesterol 46 40-59 mg/dL Test 08/26/24 05:57 08/25/24 22:07 08/25/24 20:13 08/25/24 17:00 Range/Units White Blood Count 15.7 H 4.4-10.8 10^3/uL Red Blood Count 3.46 L 4.0-5.20 10^6/uL Hemoglobin 9.8 L 12.2-16.2 g/dL Hematocrit 32.1 #L 36.0-46.0 % Mean Corpuscular Volume 92.9 80.0-100.0 fL Mean Corpuscular Hemoglobin 28.3 28.0-32.0 pg Mean Corpuscular Hemoglobin Concent 30.4 L 32.0-36.0 g/dL Red Cell Distribution Width 18.2 H 11.8-14.3 % Platelet Count 283 140-450 10^3/uL Mean Platelet Volume 8.0 6.9-10.8 fL Neutrophils (%) (Auto) 86.6 H 37.0-80.0 % Lymphocytes (%) (Auto) 5.7 L 10.0-50.0 % Monocytes (%) (Auto) 7.2 0.0-12.0 % Eosinophils (%) (Auto) 0.2 0.0-7.0 % Basophils (%) (Auto) 0.3 0.0-2.0 % Neutrophils # (Auto) 13.6 H 1.6-8.6 10 ^3/uL Lymphocytes # (Auto) 0.9 0.4-5.4 10 ^3/uL Monocytes # (Auto) 1.1 0-1.3 10 ^3/uL Eosinophils # (Auto) 0 0-0.8 10 ^3/uL Basophils # (Auto) 0.1 0-0.2 10 ^3/uL Nucleated Red Blood Cells 0.2 % Sodium Level 136 136-145 mmol/L Potassium Level 5.2 H 3.5-5.1 mmol/L Chloride Level 94 L 98-107 mmol/L Carbon Dioxide Level 18 L 20-31 mmol/L Anion Gap 24 H 5-15 Blood Urea Nitrogen 75 H 9-23 mg/dL Creatinine 3.97 H 0.550-1.02 mg/dL Glomerular Filtration Rate Calc 11 >90 mL/min BUN/Creatinine Ratio 18.9 10.0-20.0 Serum Glucose 13 *L 74-106 mg/dL Hemoglobin A1c 8.2 H <5.7 % A1C Calcium Level 10.7 H 8.7-10.4 mg/dL Total Bilirubin 0.2 0.2-1.0 mg/dL Aspartate Amino Transferase (AST) 30 13-40 U/L Alanine Aminotransferase (ALT) 34 7-40 U/L Alkaline Phosphatase 127 H 46-116 U/L Total Protein 6.3 5.7-8.2 g/dL Albumin 3.3 3.2-4.8 g/dL Beta-Hydroxybutyric Acid 2.027 H < 0.4 mmol/L Troponin I High Sensitivity 39 *H </=34 ng/L Differential Total Cells Counted 100.0 100 Neutrophils % (Manual) 90 H 37.0-80.0 Band Neutrophils % (Manual) 2 Lymphocytes % (Manual) 5 L 10.0-50.0 Monocytes % (Manual) 3 0-12 Eosinophils % (Manual) 0 0-7 Basophils % (Manual) 0 0.0-2.0 Metamyelocytes % (manual) 0 Myelocytes % (Manual) 0 Promyelocytes % (Manual) 0 Blast Cells % (Manual) 0 Reactive Lymphocytes 0 Platelet Estimate Adequate B-Type Natriuretic Peptide 698.07 0-100 pg/mL Admitting Diagnosis: 1. PNA Pulmonary consult, monitoring 2. Failure to thrive Monitor 3. Hypoglycemia D5W, monitoring 4. ESRD on HD Nephrology consult, plan for hemodialysis 5. Bilateral Pleural Effusion Medication, monitoring 6. Lactic Acidosis Medication, monitoring Plan discussed with: Patient, Other SHANE MORALES NP Aug 26, 2024 20:33
[2024-08-27] VITALS (11 sets, daily range): BP systolic 110–141; BP diastolic 46–75; PULSE 68–99; RESP 16–22; TEMP 98–99.3; O2SAT 91–100
--- NOTE | 2024-08-27 05:01 | DVHPN2 ---
Progress Note - Dictate Medical Necessity Reason Pt with a Central, PICC or Fol: No vital signs Vital Sign Date Time Temp Pulse Resp B/P (MAP) Pulse Ox O2 Delivery O2 Flow Rate FiO2 08/27/24 01:00 68 20 124/50 (74) 91 08/26/24 21:00 97.8 97.8 08/26/24 20:00 Nasal Cannula* 2 28 Total Intake and Output 08/26/24 08/26/24 08/27/24 15:00 23:00 07:00 Intake Total 50 ml Balance 50 ml medications Current Medications Medications Dose Ordered Sig/Nader Route Start Time Stop Time Status Last Admin Dose Admin Acetaminophen/ Hydrocodone Bitart 1 tab Q4HP PRN PO 08/25/24 20:45 Ondansetron HCl 4 mg Q4HP PRN IV 08/25/24 20:45 08/26/24 02:08 4 MG Docusate Sodium 100 mg BIDPRN PRN PO 08/25/24 20:45 Acetaminophen 650 mg Q6HP PRN PO 08/25/24 20:45 Nitroglycerin 0.4 mg Q5MINP PRN SL 08/25/24 20:45 Morphine Sulfate 2 mg Q30M PRN IV 08/25/24 20:45 08/27/24 00:27 2 MG Diagnostic Test (Pha) 1 strip ACHS 08/25/24 22:00 08/26/24 22:26 1 STRIP Insulin Human Regular ACHS SC 08/25/24 22:00 08/25/24 23:22 2 UNITS Dextrose 50 ml UD PRN IV 08/25/24 20:45 08/26/24 18:14 50 ML Ceftriaxone Sodium 50 ml @ 100 mls/hr DAILY IV 08/26/24 10:00 08/26/24 10:43 100 MLS/HR Albuterol 2.5 mg Q4HP PRN NEB 08/25/24 20:45 08/26/24 19:34 2.5 MG Dextrose 1,000 ml @ 50 mls/hr Q20H IV 08/26/24 08:00 08/27/24 04:20 50 MLS/HR Doxycycline Hyclate 100 ml @ 50 mls/hr Q12H IV 08/26/24 12:30 08/27/24 00:23 50 MLS/HR laboratory and microbiology Laboratory Tests 08/26/24 05:57 Test 08/26/24 05:57 Range/Units Serum Glucose 13 *L 74-106 mg/dL OCTAVIO KENNEDY [facility] Aug 27, 2024 05:01
--- NOTE | 2024-08-27 05:03 | DVHPN2 ---
Progress Note - Dictate Date Seen: Aug 27, 2024 Medical Necessity Reason Pt with a Central, PICC or Fol: No Subjective Seen and examined at the bedside within telemetry. Chart reviewed. vital signs Vital Sign Date Time Temp Pulse Resp B/P (MAP) Pulse Ox O2 Delivery O2 Flow Rate FiO2 08/27/24 01:00 68 20 124/50 (74) 91 08/26/24 21:00 97.8 97.8 08/26/24 20:00 Nasal Cannula* 2 28 Total Intake and Output 08/26/24 08/26/24 08/27/24 15:00 23:00 07:00 Intake Total 50 ml Balance 50 ml medications Current Medications Medications Dose Ordered Sig/Nader Route Start Time Stop Time Status Last Admin Dose Admin Acetaminophen/ Hydrocodone Bitart 1 tab Q4HP PRN PO 08/25/24 20:45 Ondansetron HCl 4 mg Q4HP PRN IV 08/25/24 20:45 08/26/24 02:08 4 MG Docusate Sodium 100 mg BIDPRN PRN PO 08/25/24 20:45 Acetaminophen 650 mg Q6HP PRN PO 08/25/24 20:45 Nitroglycerin 0.4 mg Q5MINP PRN SL 08/25/24 20:45 Morphine Sulfate 2 mg Q30M PRN IV 08/25/24 20:45 08/27/24 00:27 2 MG Diagnostic Test (Pha) 1 strip ACHS 08/25/24 22:00 08/26/24 22:26 1 STRIP Insulin Human Regular ACHS SC 08/25/24 22:00 08/25/24 23:22 2 UNITS Dextrose 50 ml UD PRN IV 08/25/24 20:45 08/26/24 18:14 50 ML Ceftriaxone Sodium 50 ml @ 100 mls/hr DAILY IV 08/26/24 10:00 08/26/24 10:43 100 MLS/HR Albuterol 2.5 mg Q4HP PRN NEB 08/25/24 20:45 08/26/24 19:34 2.5 MG Dextrose 1,000 ml @ 50 mls/hr Q20H IV 08/26/24 08:00 08/27/24 04:20 50 MLS/HR Doxycycline Hyclate 100 ml @ 50 mls/hr Q12H IV 08/26/24 12:30 08/27/24 00:23 50 MLS/HR laboratory and microbiology Laboratory Tests 08/26/24 05:57 Test 08/26/24 05:57 Range/Units Serum Glucose 13 *L 74-106 mg/dL Assessment/Plan ASSESSMENT: This is a 78-year old female who initially presented (08/25/2024) with hypoglycemia and hypotension. Patient herself is a poor historian which information was obtained via chart review and communication with accompanying staff. As per ED provider notes, prior to initial arrival patient was undergoing hemodialysis where she became hypotensive with a reported SBP of 88mmHg (later improved). Patient at that time was also reportedly hypoglycemic with a field glucose level of 53 and was subsequently administered an AMP of D50% by EMS which serum blood glucose level upon ED arrival was found to be 327. Patient was found to have an initial lactic acid level of 17.7 with subsequent repeat levels of 18.8, and 12.0. Beta-hydroxybutyric acid level was found elevated at 2.027 in presence of an initial CO2 level of 16 with an anion gap of 30 (later improved). It is of note the patient has a known history of diabetes mellitus with current A1C level of 8.2 and had reportedly been initiated on Metformin therapy within the out-patient setting which could have attributed to the clinical picture however as patient presented with hypotension in presence of elevated lactic acid levels, and leukocytosis (13.1 to 15.7), presentation questions superimposing sepsis in the setting of pneumonia as chest imaging has revealed bilateral pulmonary opacities. Upon ED arrival, initial HS troponin level was found minimally elevated at 43, with subsequent trend of 41, and 39. Initial 12- lead electrocardiogram upon arrival revealed sinus rhythm at 77bpm, with non- specific ST/T changes. Patient is known to have a previous history of chronic systolic heart failure which she was found to have an LVEF of 20% as per Echocardiogram (02/15/2024) and at that time had underwent cardiac catheterization (02/25/2024) revealing non-obstructive coronary artery disease consistent with non-ischemic cardiomyopathy which patient was subsequently initiated on GDMT for. Patient later underwent admission at this facility in May of 2024 and had underwent Echocardiogram (05/23/2024) revealing an improved LV function of 35-40%. In observation of the aforementioned above, LDL at present is optimized at 15. BNP level is found elevated at 698 which chest imaging has furthermore revealed consistency with congestive heart failure and presence of bilateral pleural effusions (right greater than left) for which both Nephrology services and Pulmonology services are involved in the patients care. As the patient initially presented and was found to have abnormal elevated in HS troponin levels, cardiology services were involved by primary team request for cardiac aspects of care. Past medical history reportedly includes end-stage renal disease on hemodialysis, diabetes mellitus II, hypertension, hyperlipidemia, systolic heart failure, non-ischemic cardiomyopathy, non-obstructive coronary artery disease, dementia, pulmonary hypertension, old history of CVA, repeated pleural effusion and status post repeated pleural tap by Pulmonary, history of pneumothorax, status post AV fistula creation Echocardiogram (02/15/2024) revealed ejection fraction of 20%, pseudonormal LV filling, [id number] aortic insufficiency/mitral regurgitation/tricuspid regurgitation, large pleural effusion and right ventricular systolic pressure of 62 mmHg. Echocardiogram (05/23/2024) revealed Dilated 4 chambers. Left ventricle: Mild concentric left ventricular hypertrophy was seen. Left ventricle was mildly dilated. LVEF was 35-40%. Mild diffuse hypokinesis of left ventricle was seen. Pseudo normal LV filling was observed. Right ventricle was dilated with reduced systolic function. Both atria were mildly dilated. Aortic valve: Aortic valve was trileaflet. Aortic sclerosis with no stenosis was seen. There was no aortic insufficiency. There was mild mitral regurgitation. There was moderate tricuspid regurgitation. There was trivial pulmonary valve insufficiency. Right ventricular systolic pressure was assessed at 55 mm Hg. There was no pericardial effusion. Left heart catheterization (02/25/2024) revealed non-obstructive coronary artery disease, and ischemic cardiomyopathy and ejection fraction of 25% Hypoglycemia, improving Questionable concern for sepsis in the setting of pneumonia Questionable concern for medication induced lactic acidosis Acute on chronic systolic heart failure, LVEF of 35-40% (05/23/2024) Coronary artery disease, non-obstructive as per [facility] (02/25/2024) Abnormal HS troponins (43, 41, 39), type II physiology Bilateral pleural effusions, right greater than left End stage renal disease on hemodialysis Diabetes mellitus, A1C level of 8.2 Hyperlipidemia, LDL of 15 Hypertension, history of Underlying dementia Hyperkalemia Anemia CARDIAC SUGGESTIONS FOR MANAGEMENT: Awaiting for requested 2D Echocardiogram Consider Pulmonology/IR evaluation for possible thoracentesis if considered amenable Proceed with GDMT for systolic heart failure as concurrent conditions permit Fluid volume management per Nephrology services given ESRD on HD Proceed with close observation for overt signs of fluid overload Proceed with strict intakes, outputs, and daily weights Proceed with supplemental oxygen as warranted Resume BB/ARNI upon hemodynamic stability On IV antibiotic therapy as per primary team Proceed with close rate and rhythm surveillance Proceed with close hemodynamic surveillance Proceed with optimized blood pressure control Transfuse to sustain HGB level above 7.0 Sustain Magnesium level greater than 2.0 Sustain Potassium level greater than 4.0 Follow up renal function and electrolytes Management of possible sepsis/pneumonia as per primary team/pulmonology Management of diabetes mellitus as per primary team Management of co-morbidities as per primary team Management of ESRD as per Nephrology Management in telemetry Follow up audit consultant recommendations Will proceed to follow from a cardiac perspective Further recommendations per clinical progression All available diagnostic labs, EKG's, and images were personally reviewed Patient's status, findings, and plan of care was reviewed and discussed with supervising physician Dr. Waggoner, who is in agreement with current plan of care. Plan of care discussed with and agreed upon by patient / primary RN Prognosis: Guarded Thank you for allowing me to participate in the care of this patient. Further recommendations based on patients clinical course and progression, primary attending, and other consultants. Will continue to follow with primary attending. If you have any questions or concerns, please do not hesitate to contact me. A total of 75 minutes was spent reviewing the patient record, examining the patient, making a diagnostic and therapeutic plan, discussing this plan with medical personnel, following up on diagnostic studies and following the patient for clinical stability excluding any and all procedures. At least 50% of this time was spent in direct, [id number] contact. Plan discussed with: Patient (Patient and Primary RN ) OCTAVIO KENNEDY Aug 27, 2024 05:03
[2024-08-27 07:15] LABS: INR 1.36 (0.9-1.15)
--- NOTE | 2024-08-27 09:18 | DVHPN2 ---
Progress Note - Dictate Date Seen: Aug 27, 2024 Medical Necessity Reason Pt with a Central, PICC or Fol: No vital signs Vital Sign Date Time Temp Pulse Resp B/P (MAP) Pulse Ox O2 Delivery O2 Flow Rate FiO2 08/27/24 08:50 98.3 92 20 122/46 (71) 99 98.3 08/27/24 08:14 Nasal Cannula* 3 32 Total Intake and Output 08/26/24 08/26/24 08/27/24 15:00 23:00 07:00 Intake Total 50 ml Balance 50 ml medications Current Medications Medications Dose Ordered Sig/Nader Route Start Time Stop Time Status Last Admin Dose Admin Acetaminophen/ Hydrocodone Bitart 1 tab Q4HP PRN PO 08/25/24 20:45 Ondansetron HCl 4 mg Q4HP PRN IV 08/25/24 20:45 08/26/24 02:08 4 MG Docusate Sodium 100 mg BIDPRN PRN PO 08/25/24 20:45 Acetaminophen 650 mg Q6HP PRN PO 08/25/24 20:45 Nitroglycerin 0.4 mg Q5MINP PRN SL 08/25/24 20:45 Morphine Sulfate 2 mg Q30M PRN IV 08/25/24 20:45 08/27/24 00:27 2 MG Diagnostic Test (Pha) 1 strip ACHS 08/25/24 22:00 08/27/24 05:52 1 STRIP Insulin Human Regular ACHS SC 08/25/24 22:00 08/25/24 23:22 2 UNITS Dextrose 50 ml UD PRN IV 08/25/24 20:45 08/26/24 18:14 50 ML Ceftriaxone Sodium 50 ml @ 100 mls/hr DAILY IV 08/26/24 10:00 08/26/24 10:43 100 MLS/HR Albuterol 2.5 mg Q4HP PRN NEB 08/25/24 20:45 08/26/24 19:34 2.5 MG Dextrose 1,000 ml @ 50 mls/hr Q20H IV 08/26/24 08:00 08/27/24 04:20 50 MLS/HR Doxycycline Hyclate 100 ml @ 50 mls/hr Q12H IV 08/26/24 12:30 08/27/24 00:23 50 MLS/HR objective General Appearance: alert, no distress HEENT: EOMI, PERRLA, normal external inspect of ears, no icterus, no nasal drainage Neck: no carotid bruit, no jugular venous distention (JVD), no lymphadenopathy Chest: normal thorax Respiratory: clear to auscultation, normal air movement Cardiovascular: regular rate and rhythm, no diastolic murmur, no jugular venous distention (JVD), no rub, no systolic murmur Abdominal: soft, no hepatomegaly, no mass, no splenomegaly, no tenderness Genitourinary: grossly normal external Musculoskeletal: no joint tenderness, no swelling Extremities: normal pulses, no calf tenderness, no clubbing, no cyanosis, no edema Skin: no bruising, no jaundice, no rash Neurological: alert, No focal deficit laboratory and microbiology Laboratory Tests 08/26/24 05:57 Test 08/26/24 05:57 Range/Units Serum Glucose 13 *L 74-106 mg/dL Problem List 1. PNA Pulmonary consult, monitoring 2. Failure to thrive Monitor 3. Hypoglycemia D5W, monitoring 4. ESRD on HD Nephrology consult, plan for hemodialysis 5. Bilateral Pleural Effusion Medication, monitoring 6. Lactic Acidosis Medication, monitoring 7. Metabolic encephalopathy Monitor neuro status Assessment/Plan Subjective: Patient is not awake or alert. Objective: I spoke with patient and patient's family at bedside. Patient was admitted for severe lactic acidosis most likely related to metformin induced lactic acidosis and possible pneumonia. Patient is currently being treated for gram-positive and gram-negative with doxycycline and Rocephin. Patient did receive hemodialysis yesterday. Lactic acidosis has improved to 2.5. Ejection fraction was last noted at 20%. Plan: Monitor neurostatus. Plan for hemodialysis in AM. Continue antibiotics. Oral effusion has improved. No need for thoracentesis at this time. Plan discussed with: Patient, Other SHANE MORALES NP Aug 27, 2024 09:18
[2024-08-27 09:52] LABS: Basophils # (auto) 0 10 ^3/uL (0-0.2); Basophils % (auto) 0.3 % (0.0-2.0); Eosinophils # (auto) 0.1 10 ^3/uL (0-0.8); Eosinophils % (auto) 0.7 % (0.0-7.0); Hematocrit 31.8 % (36.0-46.0); Lymphocytes # (auto) 0.5 10 ^3/uL (0.4-5.4); Lymphocytes % (auto) 5.4 % (10.0-50.0); Mean Corpuscular Hemoglobin 28.5 pg (28.0-32.0); Mean Corpuscular Hgb Conc. 31.5 g/dL (32.0-36.0); Mean Corpuscular Volume 90.5 fL (80.0-100.0); Monocytes # (auto) 0.6 10 ^3/uL (0-1.3); Monocytes % (auto) 6.6 % (0.0-12.0); Neutrophils # (auto) 8.4 10 ^3/uL (1.6-8.6); Platelet Count (auto) 207 10^3/uL (140-450); Red Blood Cells 3.52 10^6/uL (4.0-5.20); Red Cell Distribution Width 17.8 % (11.8-14.3); White Blood Cell 9.6 10^3/uL (4.4-10.8)
[2024-08-27 10:10] LABS: Albumin 3.4 g/dL (3.2-4.8); Alkaline Phosphatase 115 U/L (46-116); Anion Gap 8 (5-15); BUN/Creatinine Ratio 16.7 (10.0-20.0); Calcium 9.9 mg/dL (8.7-10.4); Glucose 81 mg/dL (74-106); Potassium 3.9 mmol/L (3.5-5.1)
[2024-08-27 10:11] LABS: Bilirubin, Total 0.5 mg/dL (0.2-1.0); Total Protein 6.2 g/dL (5.7-8.2)
[2024-08-27 10:12] LABS: Alanine Aminotransferase 41 U/L (7-40); Aspartate Aminotransferase 57 U/L (13-40); Blood Urea Nitrogen 41 mg/dL (9-23); Carbon Dioxide 32 mmol/L (20-31); Chloride 95 mmol/L (98-107); Sodium 135 mmol/L (136-145)
--- NOTE | 2024-08-27 11:20 | DVHPN2 ---
Progress Note - Dictate Date Seen: Aug 27, 2024 Medical Necessity Reason Pt with a Central, PICC or Fol: No Subjective Patient was dialyzed yesterday . Lactic acid levels with improvement continues to be altered vital signs Vital Sign Date Time Temp Pulse Resp B/P (MAP) Pulse Ox O2 Delivery O2 Flow Rate FiO2 08/27/24 08:50 98.3 92 20 122/46 (71) 99 98.3 08/27/24 08:14 Nasal Cannula* 3 32 Total Intake and Output 08/26/24 08/26/24 08/27/24 15:00 23:00 07:00 Intake Total 50 ml Balance 50 ml medications Current Medications Medications Dose Ordered Sig/Nader Route Start Time Stop Time Status Last Admin Dose Admin Acetaminophen/ Hydrocodone Bitart 1 tab Q4HP PRN PO 08/25/24 20:45 Ondansetron HCl 4 mg Q4HP PRN IV 08/25/24 20:45 08/26/24 02:08 4 MG Docusate Sodium 100 mg BIDPRN PRN PO 08/25/24 20:45 Acetaminophen 650 mg Q6HP PRN PO 08/25/24 20:45 Nitroglycerin 0.4 mg Q5MINP PRN SL 08/25/24 20:45 Morphine Sulfate 2 mg Q30M PRN IV 08/25/24 20:45 08/27/24 00:27 2 MG Diagnostic Test (Pha) 1 strip ACHS 08/25/24 22:00 08/27/24 05:52 1 STRIP Insulin Human Regular ACHS SC 08/25/24 22:00 08/25/24 23:22 2 UNITS Dextrose 50 ml UD PRN IV 08/25/24 20:45 08/26/24 18:14 50 ML Ceftriaxone Sodium 50 ml @ 100 mls/hr DAILY IV 08/26/24 10:00 08/27/24 09:29 100 MLS/HR Albuterol 2.5 mg Q4HP PRN NEB 08/25/24 20:45 08/26/24 19:34 2.5 MG Dextrose 1,000 ml @ 50 mls/hr Q20H IV 08/26/24 08:00 08/27/24 04:20 50 MLS/HR Doxycycline Hyclate 100 ml @ 50 mls/hr Q12H IV 08/26/24 12:30 08/27/24 00:23 50 MLS/HR Enteral Nutritional Formula 240 ml BIDWM PO 08/27/24 18:00 objective Patient was awake. Confused. HEENT: Normocephalic. Lungs: Diminished breath sounds at bases CVS: S1, S2 regular rate rhythm Abdomen: Soft, bowel sounds present DENTAL BILLER: No focal deficits Extremities: No edema laboratory and microbiology Laboratory Tests 08/27/24 09:17 Test 08/27/24 09:17 Range/Units Serum Glucose 81 74-106 mg/dL Problem List End-stage kidney disease on hemodialysis Encephalopathy Bilateral pneumonia Lactic acidosis secondary to metformin Hypotension Hyperkalemia Bilateral pleural effusion Hypoglycemia Hypercalcemia ,improved Assessment/Plan continue to monitor lactic acid level . Blood sugar monitoring continue with D5 will dialyse in AM Family at bedside updated Dietary Evaluation Review Recommendations by RD: Protein Supplementation Comments: 1) Initiate Nepro bid (with meals to promote PO intake d/t SOB) 2) Continue to monitor appetite, labs, and skin integrity 3) Refer to outpatient RD/CDCES for DM education d/t uncontrolled DM Expected Outcomes/Goals: 1) appetite and labs to improve 2) skin integrity to improve 3) f/u in 5 days Plan discussed with: Daughter, Other SHANE LOPEZ MD Aug 27, 2024 11:20
[2024-08-27 11:35] LABS: Lactic Acid w/Reflex 2.5 mmol/L (0.4-2.0)
--- NOTE | 2024-08-27 14:28 | DVH ---
EXAM: XY CHEST XRAY 1 VIEW TECHNIQUE: Single frontal chest radiograph CLINICAL HISTORY: follow up COMPARISON: XY CHEST XRAY 1 VIEW on DOS: 08/26/24, XY CHEST PORTABLE on DOS: 08/25/24, XY CHEST PORTABL E on DOS: 05/20/24 Findings/Impression: Frontal chest radiograph demonstrates no acute osseous or superficial soft tissue abnormalities. Left axillary vascular stent. The trachea is midline. The cardiac silhouette and mediastinum are within normal limits. Large right and trace left pleural effusions, similar to prior. Compressive atelectasis of the left l erin a superimposed infectious process is not excluded. No pneumothorax.
[2024-08-27] MEDS: Nepro With Carbsteady ButterPecan 8oz Carton PO SCH (18:00)
--- NOTE | 2024-08-27 23:08 | DVHPN2 ---
Progress Note - Dictate Date Seen: Aug 27, 2024 Medical Necessity Reason Pt with a Central, PICC or Fol: No Subjective Patient seen and examined at bedside. Remains on supplemental oxygen Overnight events reviewed. vital signs Vital Sign Date Time Temp Pulse Resp B/P (MAP) Pulse Ox O2 Delivery O2 Flow Rate FiO2 08/27/24 21:00 99.3 82 22 110/59 (76) 100 99.3 08/27/24 18:45 Nasal Cannula 4.0 08/27/24 18:45 36 Total Intake and Output 08/26/24 08/26/24 08/27/24 15:00 23:00 07:00 Intake Total 50 ml Balance 50 ml medications Current Medications Medications Dose Ordered Sig/Nader Route Start Time Stop Time Status Last Admin Dose Admin Acetaminophen/ Hydrocodone Bitart 1 tab Q4HP PRN PO 08/25/24 20:45 Ondansetron HCl 4 mg Q4HP PRN IV 08/25/24 20:45 08/26/24 02:08 4 MG Docusate Sodium 100 mg BIDPRN PRN PO 08/25/24 20:45 Acetaminophen 650 mg Q6HP PRN PO 08/25/24 20:45 Nitroglycerin 0.4 mg Q5MINP PRN SL 08/25/24 20:45 Morphine Sulfate 2 mg Q30M PRN IV 08/25/24 20:45 08/27/24 00:27 2 MG Diagnostic Test (Pha) 1 strip ACHS 08/25/24 22:00 08/27/24 21:45 1 STRIP Insulin Human Regular ACHS SC 08/25/24 22:00 08/25/24 23:22 2 UNITS Dextrose 50 ml UD PRN IV 08/25/24 20:45 08/26/24 18:14 50 ML Ceftriaxone Sodium 50 ml @ 100 mls/hr DAILY IV 08/26/24 10:00 08/27/24 09:29 100 MLS/HR Albuterol 2.5 mg Q4HP PRN NEB 08/25/24 20:45 08/26/24 19:34 2.5 MG Dextrose 1,000 ml @ 50 mls/hr Q20H IV 08/26/24 08:00 08/27/24 04:20 50 MLS/HR Doxycycline Hyclate 100 ml @ 50 mls/hr Q12H IV 08/26/24 12:30 08/27/24 12:26 50 MLS/HR Enteral Nutritional Formula 240 ml BIDWM PO 08/27/24 18:00 objective Gen.: Patient lying in bed in no apparent distress. On supplemental oxygen. Head: Normocephalic, atraumatic. Eyes: EOMI/PERRLA. Ears: Normal hearing. Normal anatomy. Neck/trachea: Trachea midline, supple. Nose: Normal external anatomy. Mouth: Moist mucous membranes. Chest: Decreased air entry bilaterally. No wheezing or rhonchi. Cardiovascular: Positive S1, positive S2. Regular rate and rhythm. Abdomen: Positive bowel sounds in all 4 quadrants. Soft, non-tender, non- distended. : Deferred. Rectal: Deferred. Skin: Warm, dry. Intact. Extremities: 2+ radial pulses bilaterally. No lower extremity edema. Neuro: Awake, alert, oriented x3. No gross motor or sensory deficits. Cranial nerves II through XII intact. Gait not assessed. laboratory and microbiology Laboratory Tests 08/27/24 09:17 Test 08/27/24 09:17 Range/Units Serum Glucose 81 74-106 mg/dL Assessment/Plan Impression: Acute hypoxic respiratory failure Lactic acidosis, resolved CHF exacerbation Fluid overload Right pleural effusion Atelectasis Hypoglycemia Hypotension Altered level of consciousness End-stage renal disease on hemodialysis Events: Remains on supplemental oxygen, 5 LPM NC Taper O2 as tolerated Lactic acidosis resolved Creatinine trended down. Head of bed elevation Aspiration precautions Chest ultrasound demonstrated small right pleural effusion We will perform my own limited chest ultrasound to evaluate if fluid amenable for thora. Obtain consent for right thoracentesis PT/INR reviewed. HD per Nephrology Incentive spirometry Continue antibiotics Labs and imaging reviewed. Rest of plan as noted below. Plan: Supplemental oxygen Titrate to keep O2 sats above 92%. WBC count WNL. Continue antibiotics Lactic acidosis resolved Accu-Cheks Check PT and INR. Monitor renal function Monitor electrolytes Hemodialysis per nephrology DVT prophylaxis Prognosis: Poor given multiple comorbidities. Rest of plan per hospitalist and other consultants. Thank you NIRU Marsh for allowing me to participate in this patient's care. Further recommendations will depend on patient's clinical course. Please do not hesitate to contact me if you have any questions or concerns. This medical document was created using an electronic medical record system with [employer] dictation system. Although this document has been carefully reviewed, there may still be some phonetic and typographical errors. These areas are purely typographical due to imperfections of the software programs, and do not reflect any compromise in the patient's medical care. Dietary Evaluation Review Recommendations by RD: Protein Supplementation Comments: 1) Initiate Nepro bid (with meals to promote PO intake d/t SOB) 2) Continue to monitor appetite, labs, and skin integrity 3) Refer to outpatient RD/CDCES for DM education d/t uncontrolled DM Expected Outcomes/Goals: 1) appetite and labs to improve 2) skin integrity to improve 3) f/u in 5 days Plan discussed with: Patient, Other (NEERAJ Dolan) TEO BEST MD Aug 27, 2024 23:08
[2024-08-28] VITALS (15 sets, daily range): BP systolic 79–129; BP diastolic 33–62; PULSE 66–90; RESP 13–22; TEMP 97.8–99.1; O2SAT 88–100
[2024-08-28] MEDS ORDERED: SODIUM CHL 0.9% 1000 ML BAG XX ONE (07:00)
[2024-08-28 08:40] LABS: Hemoglobin 9.3 g/dL (12.2-16.2)
--- NOTE | 2024-08-28 09:14 | DVHSR ---
APPROVED REPORT EXAM: LIMITED Two-dimensional and M-mode echocardiogram. Blood Pressure: 138/80 mmHg INDICATION Heart Failure RISK FACTORS Height: 4' 10", Weight: 78 DIMENSIONS LVDd4.6 (3.8-5.7cm)LA (2D)4.0 (1.9-4.0cm)Aortic Root (2.0-3.7cm) LVDs3.7 (2.5-4.0cm)LA (MM) (1.9-4.0cm)Aortic Cusp Exc (1.5-2.0cm) EF (%) 35.0 (55-70%)Rt. Atrium3.7 (1.9-4.0cm)Asc. Aorta cm IVSd0.9 (0.7-1.1cm)RV (D) (1.8-2.4cm) PWd0.8 (0.7-1.1cm) Mitral Valve MitralMitral Stenosis E/A ratio0.02D MVAcm2 Other Information Quality : LimitedRhythm : Conclusion Limited echocardiogram was performed. Left ventricle was mildly dilated. LVEF was around 40%. Mild diffuse hypokinesis of left ventricle was seen. Mild biatrial enlargement was seen. Right ventricle had preserved systolic function Cardiac valves were not evaluated in this limited study. Mitral/tricuspid/aortic valves were opening adequately.
--- NOTE | 2024-08-28 09:15 | DVHPN2 ---
Progress Note - Dictate Date Seen: Aug 28, 2024 Medical Necessity Reason Pt with a Central, PICC or Fol: No vital signs Vital Sign Date Time Temp Pulse Resp B/P (MAP) Pulse Ox O2 Delivery O2 Flow Rate FiO2 08/28/24 06:43 99 Nasal Cannula* 3 32 08/28/24 05:00 99.1 90 22 129/62 (84) 99.1 Total Intake and Output 08/27/24 08/27/24 08/28/24 15:00 23:00 07:00 Intake Total 0 ml 950 ml 300 ml Output Total 0 ml Balance 0 ml 950 ml 300 ml medications Current Medications Medications Dose Ordered Sig/Nader Route Start Time Stop Time Status Last Admin Dose Admin Acetaminophen/ Hydrocodone Bitart 1 tab Q4HP PRN PO 08/25/24 20:45 Ondansetron HCl 4 mg Q4HP PRN IV 08/25/24 20:45 08/26/24 02:08 4 MG Docusate Sodium 100 mg BIDPRN PRN PO 08/25/24 20:45 Acetaminophen 650 mg Q6HP PRN PO 08/25/24 20:45 Nitroglycerin 0.4 mg Q5MINP PRN SL 08/25/24 20:45 Morphine Sulfate 2 mg Q30M PRN IV 08/25/24 20:45 08/27/24 00:27 2 MG Diagnostic Test (Pha) 1 strip ACHS 08/25/24 22:00 08/28/24 06:53 1 STRIP Insulin Human Regular ACHS SC 08/25/24 22:00 08/28/24 06:58 2 UNITS Dextrose 50 ml UD PRN IV 08/25/24 20:45 08/26/24 18:14 50 ML Ceftriaxone Sodium 50 ml @ 100 mls/hr DAILY IV 08/26/24 10:00 08/27/24 09:29 100 MLS/HR Albuterol 2.5 mg Q4HP PRN NEB 08/25/24 20:45 08/26/24 19:34 2.5 MG Dextrose 1,000 ml @ 50 mls/hr Q20H IV 08/26/24 08:00 08/28/24 00:00 50 MLS/HR Doxycycline Hyclate 100 ml @ 50 mls/hr Q12H IV 08/26/24 12:30 08/28/24 00:45 50 MLS/HR Enteral Nutritional Formula 240 ml BIDWM PO 08/27/24 18:00 laboratory and microbiology Laboratory Tests 08/28/24 07:31 08/27/24 09:17 Test 08/27/24 09:17 Range/Units Serum Glucose 81 74-106 mg/dL Assessment/Plan This is a 78-year old female who initially presented (08/25/2024) with hypoglycemia and hypotension. Patient herself is a poor historian which information was obtained via chart review and communication with accompanying staff. As per ED provider notes, prior to initial arrival patient was undergoing hemodialysis where she became hypotensive with a reported SBP of 88mmHg (later improved). Patient at that time was also reportedly hypoglycemic with a field glucose level of 53 and was subsequently administered an AMP of D50% by EMS which serum blood glucose level upon ED arrival was found to be 327. Patient was found to have an initial lactic acid level of 17.7 with subsequent repeat levels of 18.8, and 12.0. Beta-hydroxybutyric acid level was found elevated at 2.027 in presence of an initial CO2 level of 16 with an anion gap of 30 (later improved). It is of note the patient has a known history of diabetes mellitus with current A1C level of 8.2 and had reportedly been initiated on Metformin therapy within the out-patient setting which could have attributed to the clinical picture however as patient presented with hypotension in presence of elevated lactic acid levels, and leukocytosis (13.1 to 15.7), presentation questions superimposing sepsis in the setting of pneumonia as chest imaging has revealed bilateral pulmonary opacities. Upon ED arrival, initial HS troponin level was found minimally elevated at 43, with subsequent trend of 41, and 39. Initial 12- lead electrocardiogram upon arrival revealed sinus rhythm at 77bpm, with non- specific ST/T changes. Patient is known to have a previous history of chronic systolic heart failure which she was found to have an LVEF of 20% as per Echocardiogram (02/15/2024) and at that time had underwent cardiac catheterization (02/25/2024) revealing non-obstructive coronary artery disease consistent with non-ischemic cardiomyopathy which patient was subsequently initiated on GDMT for. Patient later underwent admission at this facility in May of 2024 and had underwent Echocardiogram (05/23/2024) revealing an improved LV function of 35-40%. In observation of the aforementioned above, LDL at present is optimized at 15. BNP level is found elevated at 698 which chest imaging has furthermore revealed consistency with congestive heart failure and presence of bilateral pleural effusions (right greater than left) for which both Nephrology services and Pulmonology services are involved in the patients care. As the patient initially presented and was found to have abnormal elevated in HS troponin levels, cardiology services were involved by primary team request for cardiac aspects of care. Past medical history reportedly includes end-stage renal disease on hemodialysis, diabetes mellitus II, hypertension, hyperlipidemia, systolic heart failure, non-ischemic cardiomyopathy, non-obstructive coronary artery disease, dementia, pulmonary hypertension, old history of CVA, repeated pleural effusion and status post repeated pleural tap by Pulmonary, history of pneumothorax, status post AV fistula creation Echocardiogram (02/15/2024) revealed ejection fraction of 20%, pseudonormal LV filling, [id number] aortic insufficiency/mitral regurgitation/tricuspid regurgitation, large pleural effusion and right ventricular systolic pressure of 62 mmHg. Echocardiogram (05/23/2024) revealed Dilated 4 chambers. Left ventricle: Mild concentric left ventricular hypertrophy was seen. Left ventricle was mildly dilated. LVEF was 35-40%. Mild diffuse hypokinesis of left ventricle was seen. Pseudo normal LV filling was observed. Right ventricle was dilated with reduced systolic function. Both atria were mildly dilated. Aortic valve: Aortic valve was trileaflet. Aortic sclerosis with no stenosis was seen. There was no aortic insufficiency. There was mild mitral regurgitation. There was moderate tricuspid regurgitation. There was trivial pulmonary valve insufficiency. Right ventricular systolic pressure was assessed at 55 mm Hg. There was no pericardial effusion. Left heart catheterization (02/25/2024) revealed non-obstructive coronary artery disease, and ischemic cardiomyopathy and ejection fraction of 25% Limited echocardiogram revealed ejection fraction of 40%. Hypoglycemia, improving Questionable concern for sepsis in the setting of pneumonia Questionable concern for medication induced lactic acidosis Acute on chronic systolic heart failure, LVEF of 35-40% (05/23/2024) Coronary artery disease, non-obstructive as per [facility] (02/25/2024) Abnormal HS troponins (43, 41, 39), type II physiology Bilateral pleural effusions, right greater than left End stage renal disease on hemodialysis Diabetes mellitus, A1C level of 8.2 Hyperlipidemia, LDL of 15 Hypertension, history of Underlying dementia Hyperkalemia Anemia CARDIAC SUGGESTIONS FOR MANAGEMENT: Consider Pulmonology/IR evaluation for possible thoracentesis if considered amenable Proceed with GDMT for systolic heart failure as concurrent conditions permit Fluid volume management per Nephrology services given ESRD on HD Proceed with close observation for overt signs of fluid overload Proceed with strict intakes, outputs, and daily weights Proceed with supplemental oxygen as warranted Resume BB/ARNI upon hemodynamic stability On IV antibiotic therapy as per primary team Proceed with close rate and rhythm surveillance Proceed with close hemodynamic surveillance Proceed with optimized blood pressure control Transfuse to sustain HGB level above 7.0 Sustain Magnesium level greater than 2.0 Sustain Potassium level greater than 4.0 Follow up renal function and electrolytes Management of possible sepsis/pneumonia as per primary team/pulmonology Management of diabetes mellitus as per primary team Management of co-morbidities as per primary team Management of ESRD as per Nephrology Management in telemetry Follow up valuation consultant recommendations Will proceed to follow from a cardiac perspective Further recommendations per clinical progression All available diagnostic labs, EKG's, and images were personally reviewed Plan of care discussed with and agreed upon by patient / primary RN Prognosis: Guarded Thank you for allowing me to participate in the care of this patient. Further recommendations based on patients clinical course and progression, primary attending, and other consultants. Will continue to follow with primary attending. If you have any questions or concerns, please do not hesitate to contact me. A total of 55 minutes was spent reviewing the patient record, examining the patient, making a diagnostic and therapeutic plan, discussing this plan with medical personnel, following up on diagnostic studies and following the patient for clinical stability excluding any and all procedures. At least 50% of this time was spent in direct, [id number] contact. Dietary Evaluation Review Recommendations by RD: Protein Supplementation Comments: 1) Initiate Nepro bid (with meals to promote PO intake d/t SOB) 2) Continue to monitor appetite, labs, and skin integrity 3) Refer to outpatient RD/CDCES for DM education d/t uncontrolled DM Expected Outcomes/Goals: 1) appetite and labs to improve 2) skin integrity to improve 3) f/u in 5 days Plan discussed with: Patient, Other (nurse) CAREY MCKEON MD Aug 28, 2024 09:15
[2024-08-28 11:18] LABS: Hepatitis A Ab IgM Negative; Hepatitis B Core IgM Negative (Negative); Hepatitis B Surface Antigen Negative (Negative); Hepatitis C Antibody Negative (Negative)
--- NOTE | 2024-08-28 11:24 | ECG ---
[facility] Test Date: 2024-08-26 Test Time: 09:57:13 Pat Name: SURAJ RODNEY Department: ER Room: 0208T Gender: F Manager Music: SAMUEL : 1945 Requested By: NGHIA BALDERAS Order Number: [id number] Reading MD: Av Thao Measurements Intervals [place] Rate: 77 P: 28 MI: 174 QRS: -4 QRSD: 109 T: 234 QT: 409 QTc: 463 Interpretive Statements Sinus rhythm Incomplete left bundle branch block Anterior Q waves, possibly due to ILBBB ST depression, consider ischemia, lateral lds Baseline wander in lead(s) V5,V6 Electronically Signed On 08-29-2024 21:56:48 PST by Av Thao Please click the below link to view image of tracing.
--- NOTE | 2024-08-28 12:13 | DVHPN2 ---
Progress Note - Dictate Date Seen: Aug 28, 2024 Medical Necessity Reason Pt with a Central, PICC or Fol: No vital signs Vital Sign Date Time Temp Pulse Resp B/P (MAP) Pulse Ox O2 Delivery O2 Flow Rate FiO2 08/28/24 08:00 98.8 79 21 99/53 (68) 100 98.8 08/28/24 06:43 Nasal Cannula* 3 32 Total Intake and Output 08/27/24 08/27/24 08/28/24 15:00 23:00 07:00 Intake Total 0 ml 950 ml 300 ml Output Total 0 ml Balance 0 ml 950 ml 300 ml medications Current Medications Medications Dose Ordered Sig/Nader Route Start Time Stop Time Status Last Admin Dose Admin Acetaminophen/ Hydrocodone Bitart 1 tab Q4HP PRN PO 08/25/24 20:45 Ondansetron HCl 4 mg Q4HP PRN IV 08/25/24 20:45 08/26/24 02:08 4 MG Docusate Sodium 100 mg BIDPRN PRN PO 08/25/24 20:45 Acetaminophen 650 mg Q6HP PRN PO 08/25/24 20:45 Nitroglycerin 0.4 mg Q5MINP PRN SL 08/25/24 20:45 Morphine Sulfate 2 mg Q30M PRN IV 08/25/24 20:45 08/27/24 00:27 2 MG Diagnostic Test (Pha) 1 strip ACHS 08/25/24 22:00 08/28/24 06:53 1 STRIP Insulin Human Regular ACHS SC 08/25/24 22:00 08/28/24 06:58 2 UNITS Dextrose 50 ml UD PRN IV 08/25/24 20:45 08/26/24 18:14 50 ML Ceftriaxone Sodium 50 ml @ 100 mls/hr DAILY IV 08/26/24 10:00 08/27/24 09:29 100 MLS/HR Albuterol 2.5 mg Q4HP PRN NEB 08/25/24 20:45 08/26/24 19:34 2.5 MG Dextrose 1,000 ml @ 50 mls/hr Q20H IV 08/26/24 08:00 08/28/24 00:00 50 MLS/HR Doxycycline Hyclate 100 ml @ 50 mls/hr Q12H IV 08/26/24 12:30 08/28/24 00:45 50 MLS/HR Enteral Nutritional Formula 240 ml BIDWM PO 08/27/24 18:00 objective General Appearance: alert, no distress HEENT: EOMI, PERRLA, normal external inspect of ears, no icterus, no nasal drainage Neck: no carotid bruit, no jugular venous distention (JVD), no lymphadenopathy Chest: normal thorax Respiratory: clear to auscultation, normal air movement Cardiovascular: regular rate and rhythm, no diastolic murmur, no jugular venous distention (JVD), no rub, no systolic murmur Abdominal: soft, no hepatomegaly, no mass, no splenomegaly, no tenderness Genitourinary: grossly normal external Musculoskeletal: no joint tenderness, no swelling Extremities: normal pulses, no calf tenderness, no clubbing, no cyanosis, no edema Skin: no bruising, no jaundice, no rash Neurological: alert, No focal deficit laboratory and microbiology Laboratory Tests 08/28/24 07:31 08/27/24 09:17 Test 08/27/24 09:17 Range/Units Serum Glucose 81 74-106 mg/dL Problem List 1. PNA Pulmonary consult, monitoring 2. Failure to thrive Monitor 3. Hypoglycemia D5W, monitoring 4. ESRD on HD Nephrology consult, plan for hemodialysis 5. Bilateral Pleural Effusion Medication, monitoring 6. Lactic Acidosis Medication, monitoring 7. Metabolic encephalopathy Monitor neuro status Assessment/Plan Subjective: Patient is not awake or alert. Objective: Patient was admitted for acute metabolic encephalopathy related to severe lactic acidosis from metformin. Patient also has sepsis with pneumonia. Patient was seen by pulmonary as well as nephrology. Patient received hemodialysis. Lactic acidosis has resolved. Patient developed GI bleed. Patient became very hypotensive and had agonal breathing. Chain Carrier spoke with family. Patient became a DNR. Comfort measures were replaced. Patient to receive two units PRBC. Plan: Transfuse two units PRBC. Comfort measures. Patient has a poor prognosis. Dietary Evaluation Review Recommendations by RD: Protein Supplementation Comments: 1) Initiate Nepro bid (with meals to promote PO intake d/t SOB) 2) Continue to monitor appetite, labs, and skin integrity 3) Refer to outpatient RD/CDCES for DM education d/t uncontrolled DM Expected Outcomes/Goals: 1) appetite and labs to improve 2) skin integrity to improve 3) f/u in 5 days Plan discussed with: Patient, Other SHANE MORALES NP Aug 28, 2024 12:13
[2024-08-28] MEDS ORDERED: PANTOPRAZOLE 40 MG/10 ML VIAL INJ IV SCH (15:30)
[2024-08-28] MEDS ORDERED: SODIUM CHLORIDE 0.9% 500 ML IV ONE (15:45)
[2024-08-28] MEDS ORDERED: DEXTROSE (50%) 50ML SYRG IV ONE ×2 (15:45)
[2024-08-28] MEDS: DEXTROSE 50% SYRINGE 50 ML IV ONE (15:45)
[2024-08-28] MEDS: NOREPINEPHRINE 8 MG/250ML KIT 250 ML IV ONE (15:46)
[2024-08-28 16:00] LABS: Base Excess 8.4 mmol/L (-2.0-3.0)
[2024-08-28 16:04] LABS: Band Neutrophils % (manual) 0; Basophils % (manual) 0 (0.0-2.0); Blast Cells 0; Eosinophils % (manual) 0 (0-7); Metamyelocytes % 0; Myelocytes % 0; Promyelocytes % 0; Reactive Lymphocytes 0
[2024-08-28 16:14] LABS: Chloride 99 mmol/L (98-107); Sodium 139 mmol/L (136-145)
[2024-08-28 16:15] LABS: Anion Gap 6 (5-15)
[2024-08-28 16:17] LABS: Calcium 8.4 mg/dL (8.7-10.4); Carbon Dioxide 34 mmol/L (20-31); Potassium 3.4 mmol/L (3.5-5.1)
[2024-08-28 16:20] LABS: BUN/Creatinine Ratio 16.9 (10.0-20.0); Basophils # (auto) 0 10 ^3/uL (0-0.2); Basophils % (auto) 0.6 % (0.0-2.0); Blood Urea Nitrogen 27 mg/dL (9-23); Eosinophils # (auto) 0 10 ^3/uL (0-0.8); Eosinophils % (auto) 0.3 % (0.0-7.0); Glucose 101 mg/dL (74-106); Lymphocytes # (auto) 0.6 10 ^3/uL (0.4-5.4); Lymphocytes % (auto) 10.6 % (10.0-50.0); Mean Corpuscular Hemoglobin 28.1 pg (28.0-32.0); Mean Corpuscular Hgb Conc. 31.9 g/dL (32.0-36.0); Monocytes # (auto) 0.4 10 ^3/uL (0-1.3); Neutrophils # (auto) 4.7 10 ^3/uL (1.6-8.6); Neutrophils % (auto) 81.5 % (37.0-80.0); Nucleated Red Blood Cells % 0.1 %; Platelet Count (auto) 122 10^3/uL (140-450); Red Blood Cells 2.16 10^6/uL (4.0-5.20); Red Cell Distribution Width 17.5 % (11.8-14.3); White Blood Cell 5.8 10^3/uL (4.4-10.8)
[2024-08-28 16:28] LABS: Hemoglobin 6.1 g/dL (12.2-16.2)
[2024-08-28] MEDS: NOREPINEPHRINE 8 MG/250ML KIT 250 ML IV SCH (16:30)
--- NOTE | 2024-08-28 16:39 | DVHNC2 ---
Arterial Puncture Location: Right Femoral Informed consent obtained: Yes Risks/benefits/alt described: Yes Notes INDICATION: Hypotension_ PROCEDURE BUDGET SPECIALIST: Dr. Luevano ATTENDING PHYSICIAN: Dr. Rubio Ultrasound Used: Y The RIGHT inguinal region was prepped using chlorhexidine scrub and draped in sterile fashion using a full drape and sterile probe cover and sterile gel employed. The femoral vein was identified with the help of ultrasound. Anesthesia was achieved using 1% lidocaine. The introducer needle was inserted medial to the femoral artery, inferior to the inguinal crease and into the femoral vein. Venous blood was withdrawn. The syringe was removed and a guidewire was advanced into the introducer needle. A small incision was made at the skin surface with a scalpel and the introducer needle was exchanged for a dilator over the guidewire. After appropriate dilation was obtained, the dilator was exchanged over the wire for a _ central venous catheter. The wire was removed and the catheter was sutured at [address] A sterile sorbaview shield was placed over the catheter at the insertion site. The patient tolerated the procedure without any hemodynamic compromise. At time of procedure completion, all ports aspirated and flushed properly. Estimated blood loss is less than 5 ml.. Date of Service: Aug 28, 2024 Billing Provider: RE CANNON MD Common Visit Codes: PROCEDURE ONLY Procedure Codes: [id number] NON-TUNNEL CV CATH LIONEL LUEVANO Aug 28, 2024 16:39 RE CANNON MD Aug 29, 2024 23:51
[2024-08-28] MEDS ORDERED: NOREPINEPHRINE 8 MG/250ML KIT 250 ML IV SCH (16:45)
[2024-08-28] MEDS ORDERED: VASOPRESSIN 20 UNITS in SODIUM CHL 0.9% 99 ML IV SCH (16:45)
--- NOTE | 2024-08-28 16:50 | DVH ---
CHEST RADIOGRAPH Indication: PULMONARY EFFUSIONS Technique: Single frontal view of the chest was obtained COMPARISON: XY CHEST XRAY 1 VIEW on DOS: 08/27/24, XY CHEST XRAY 1 VIEW on DOS: 08/26/24, XY CHEST PORT ABLE on DOS: 08/25/24, XY CHEST PORTABLE on DOS: 05/20/24, XY CHEST PORTABLE on DOS: 03/24/24 FINDINGS: Lines and Tubes: None Lungs: Effacement right heart border and right hemidiaphragm Pleura: Bilateral pleural effusions, right greater than left, unchanged from 08/27 No pneumothorax. Cardiomediastinal contours: Stable heart size Bones: Unremarkable IMPRESSION: 1. Large pleural effusions on the right and small on the left, stable when compared to the prior stud y
[2024-08-28 17:08] LABS: Nucleated Red Blood Cells % 0.1 %; Platelet Count (auto) 122 10^3/uL (140-450)
[2024-08-28 17:13] LABS: Anisocytosis Slight; Hypochromia Moderate; Lymphocytes % (manual) 7 (10.0-50.0); Monocytes % (manual) 8 (0-12); Platelet Estimate Decreased
[2024-08-28] MEDS ORDERED: ONDANSETRON HCL 4 MG/2 ML VIAL IV PRN (17:15)
--- NOTE | 2024-08-28 17:16 | RESUS ---
CODE ASSIST ASSESSSMENT Initial Information Code Assist Date: Aug 28, 2024 Code Assist Time: 15:28 Location of Arrest: [facility] Room [facility]a Provider Name NIRU Salma Time Notified: 15:20 Crash Cart Opened and Supplies: Yes Comment: NIRU Camposkristina paged prior to code assist. no return call lead to code assist being paged Dr Lundberg and Dr Dutta responded to code assit. Situation Staff concerned/worried, speci: Acute sig bleeding, Change LOC, SBP <90 or 10 from baseli Situation comment: Per primary RN Phillip, patient has presented with multiple episodes of hypotension following dialysis treatment today Latest BP 88/37, patient lethargic/ responsive to painful stimuli dark red rectal bleed noted Assessment Temperature (Fahrenheit): 98.7 Blood Pressure Systolic: 88 Blood Pressure Diastolic: 37 Respiratory Rate: 14 O2 Sat by Pulse Oximetry: 97 Bedside Blood Glucose: 72 Recommendations/Interventions Medications and Responses : Medication Time: 15:35 ADULT Medications Given: Route of Administration: IV Medication Comment: 2 amps given as ordered by dr lundberg 500ml ns levophed per protocol EKG Rhythm: Sinus Rhythm Procedures: Accu check, ABG, CMP, CBC, Cardiac Monitoring Outcome Outcome: Transfer to ICU Follow up Report Follow up Report family is discussing code status. patient will be upgraded and started on levo at this time. Yoselin Barajas Aug 28, 2024 17:16 RE CANNON MD Aug 29, 2024 23:52
--- NOTE | 2024-08-28 17:52 | DVHCONRES ---
Date Seen: Aug 28, 2024 Resident Creating Document: AMAYA SANDOVAL RESIDENT Referring Physician Dr Cooper Reason for Consultation GI Bleed History of Present Illness Patient is 78-year-old female with past medical history of end-stage renal disease on hemodialysis, diabetes mellitus II, hypertension, hyperlipidemia, systolic heart failure, non-ischemic cardiomyopathy, non-obstructive coronary artery disease, dementia, pulmonary hypertension, old history of CVA, repeated pleural effusion and status post repeated pleural tap by Pulmonary, history of pneumothorax, status post AV fistula creation who brought to the hospital for l ower heart rate, lower blood sugar and worsening nausea and vomiting. Given initial worsening lactic acidosis, requiring oxygen requirement, patient found to have bilateral pleural effusion, questionable sepsis requiring vasopressors. GI consultation was done for severe anemia with hemoglobin 6.1, stool occult positive for blood and possible active lower GI bleed. However family GI in the code steatosis comfort measure, agreed with discontinue all heroic measures including vasopressors, blood transfusion, any other aggressive measures. All medical information obtained from EMR. Patient is altered, not able to answer any questions. No any other complaint from family members or nursing staff. Past Surgical History As per HPI Family History: Patient reports no known family medical history. Allergies: Coded Allergies: No Known Drug Allergy (Verified Allergy, Unknown, 01/07/22) Home Meds Active Scripts Azithromycin (Azithromycin) 250 Mg Tab, 250 MG PO DAILY MDD 500 for 5 Days, #6 TAB 0 Refills 2 TABLETS ORALLY ON DAY ONE, THEN 1 TABLET ORALLY DAILY FOR 4 DAYS Prov:SHANE MORALES Roxana MUSIC COPYIST 05/25/24 Carvedilol (COREG) 3.125 Mg Tab, 3.125 MG PO Q12HR for 30 Days, #60 TAB Prov:JOCYSHANE CISNEROS Roxana MUSIC COPYIST 03/28/24 Reported Medications Ergocalciferol (Vitamin D) 50,000 Unit Cap, 1 TAB PO QWEEKLY for 28 Days, #4 02/22/24 Atorvastatin Calcium (ATORVASTATIN CALCIUM) 20 Mg Tab, 1 TAB PO DAILY 02/15/24 Amlodipine Besylate (Amlodipine Besylate) 5 Mg Tab, 1 TAB PO DAILY 02/15/24 B-Complex W/ C & Folic Acid ([facility]osalia-[facility] Rx) Tab, 1 TAB PO DAILY 02/15/24 Current Medications Current Medications Medications (Trade) Dose Ordered Sig/Nader Route PRN Reason Start Time Stop Time Status Last Admin Enteral Nutritional Formula (Nepro With Carbsteady) 240 ml BIDWM PO 08/27/24 18:00 Pantoprazole Sodium (Protonix) 40 mg BID IV 08/28/24 15:30 Norepinephrine Bitartrate 250 ml @ 3.75 mls/hr Q24H IV 08/28/24 16:30 08/28/24 16:30 Norepinephrine Bitartrate 250 ml @ 3.75 mls/hr Q24H IV 08/28/24 16:45 08/28/24 16:49 DC Vasopressin 20 units/Sodium Chloride 100 ml @ 9 mls/hr Q11H7M IV 08/28/24 16:45 Morphine Sulfate 1 mg Q4HP PRN IV SEVERE PAIN (7-10 PAIN SCALE) 08/28/24 17:15 Lorazepam (Ativan Inj) 1 mg Q4HP PRN IV ANXIETY 08/28/24 17:15 Ondansetron HCl (Zofran) 4 mg Q8HPRN PRN IV NAUSEA / VOMITING 08/28/24 17:15 Review of Systems Review of systems can not be obtained given patient is altered. Vital Signs Vital Signs Date Time Temp Pulse Resp B/P (MAP) Pulse Ox O2 Delivery O2 Flow Rate FiO2 08/28/24 17:30 80 18 97/53 (68) 98 08/28/24 16:46 98.7 98.7 08/28/24 10:00 Nasal Cannula 4.0 08/28/24 10:00 36 Physical Exam General Appearance: Altered, frail. On oxygen. Head Exam: Normal inspection Neck Exam: Normal inspection. Non-tender. Normal alignment Pulmonary/Respiratory: Chest non-tender. Diminished breath sounds in bilateral lung base. Cardiovascular/Chest: Regular rate and rhythm. No murmurs. No JVD. Peripheral Pulses: 2+ Radial (R). 2+ Radial (L). 2+ Pedal (R). 2+ Pedal (L) Abdominal Exam: Normal bowel sounds. Soft. Nontender. No hepatospenomegaly. No masses Ankle Exam: Negative ankle edema Lower extremities: Negative lower extremity edema Neuro/Mental Status: Altered. Not able to answer questions. Labs/Diagnostic Data Labs Test 08/28/24 15:48 08/28/24 15:42 08/28/24 15:34 08/28/24 15:12 Range/Units Blood Gas Specimen Type Arterial Blood Gas Sample Site Right fermoral Blood Gas Patient Temperature 37.0 Arterial Blood Date Drawn [id number] Arterial Blood pH 7.456 H 7.350-7.450 Arterial Blood Partial Pressure CO2 47.9 H 32.0-45.0 mmHg Arterial Blood Partial Pressure O2 59.8 L 83.0-108.0 mmHg Arterial Blood HCO3 33.0 H 21.0-28.0 mmol/L Arterial Blood Oxygen Saturation 87.7 L 94.0-98.0 % Arterial Blood Base Excess 8.4 H -2.0-3.0 mmol/L Arterial Blood Oxyhemoglobin 86.8 L 94.0-98.0 % Arterial Blood Carboxyhemoglobin 0.3 L 0.5-1.5 % Arterial Blood Methemoglobin 0.7 0.0-1.5 % Justus Test N/a Blood Gas Total Hemoglobin 5.50 *L 12.0-16.0 g/dL Blood Gas Liter Flow 3.00 Blood Gas Modality Nasal cannula Blood Gas Spontaneous Rate 16 FiO2 % 36.0 Specimen Drawn By Roxana palacios. Blood Gas Critical Value Read Back Yes Blood Gas Notified Whom Roxana palacios md Blood Gas Notified Time [id number] Blood Gas Notified By Kendrick haynes, rt White Blood Count 5.8 # 4.4-10.8 10^3/uL Red Blood Count 2.16 L 4.0-5.20 10^6/uL Hemoglobin 6.1 #*L 12.2-16.2 g/dL Hematocrit 19.0 #L 36.0-46.0 % Mean Corpuscular Volume 88.0 80.0-100.0 fL Mean Corpuscular Hemoglobin 28.1 28.0-32.0 pg Mean Corpuscular Hemoglobin Concent 31.9 L 32.0-36.0 g/dL Red Cell Distribution Width 17.5 H 11.8-14.3 % Platelet Count 122 L 140-450 10^3/uL Mean Platelet Volume 8.0 6.9-10.8 fL Neutrophils (%) (Auto) 81.5 H 37.0-80.0 % Lymphocytes (%) (Auto) 10.6 10.0-50.0 % Monocytes (%) (Auto) 7.0 0.0-12.0 % Eosinophils (%) (Auto) 0.3 0.0-7.0 % Basophils (%) (Auto) 0.6 0.0-2.0 % Neutrophils # (Auto) 4.7 1.6-8.6 10 ^3/uL Lymphocytes # (Auto) 0.6 0.4-5.4 10 ^3/uL Monocytes # (Auto) 0.4 0-1.3 10 ^3/uL Eosinophils # (Auto) 0 0-0.8 10 ^3/uL Basophils # (Auto) 0 0-0.2 10 ^3/uL Differential Total Cells Counted 100.0 100 Neutrophils % (Manual) 85 H 37.0-80.0 Band Neutrophils % (Manual) 0 Lymphocytes % (Manual) 7 L 10.0-50.0 Monocytes % (Manual) 8 0-12 Eosinophils % (Manual) 0 0-7 Basophils % (Manual) 0 0.0-2.0 Metamyelocytes % (manual) 0 Myelocytes % (Manual) 0 Promyelocytes % (Manual) 0 Blast Cells % (Manual) 0 Nucleated Red Blood Cells 0.1 % Reactive Lymphocytes 0 Platelet Estimate Decreased Hypochromasia (manual) Moderate Anisocytosis (manual) Slight Sodium Level 139 136-145 mmol/L Potassium Level 3.4 L 3.5-5.1 mmol/L Chloride Level 99 98-107 mmol/L Carbon Dioxide Level 34 H 20-31 mmol/L Anion Gap 6 5-15 Blood Urea Nitrogen 27 #H 9-23 mg/dL Creatinine 1.60 #H 0.550-1.02 mg/dL Glomerular Filtration Rate Calc 33 >90 mL/min BUN/Creatinine Ratio 16.9 10.0-20.0 Serum Glucose 101 74-106 mg/dL Calcium Level 8.4 L 8.7-10.4 mg/dL POC Glucose 72 70-106 mg/dl Stool Occult Blood Positive Negative Stool Occult Blood Sample #3 Negative Test 08/27/24 09:17 08/27/24 06:24 08/26/24 06:44 08/26/24 06:39 Range/Units Total Bilirubin 0.5 0.2-1.0 mg/dL Aspartate Amino Transferase (AST) 57 H 13-40 U/L Alanine Aminotransferase (ALT) 41 H 7-40 U/L Alkaline Phosphatase 115 46-116 U/L Total Protein 6.2 5.7-8.2 g/dL Albumin 3.4 3.2-4.8 g/dL Prothrombin Time 14.0 H 9.3-11.8 sec Prothrombin Time INR 1.36 H 0.9-1.15 Triglycerides Level 42 < 150 mg/dL Cholesterol Level 78 < 200 mg/dL LDL Cholesterol 15 < 100 mg/dL HDL Cholesterol 46 40-59 mg/dL Hepatitis A IgM Antibody Negative Hepatitis B Surface Antigen Negative Negative Hepatitis B Core IgM Antibody Negative Negative Hepatitis C Antibody Negative Negative Test 08/26/24 05:57 08/25/24 22:07 08/25/24 20:13 08/25/24 17:00 Range/Units Hemoglobin A1c 8.2 H <5.7 % A1C Beta-Hydroxybutyric Acid 2.027 H < 0.4 mmol/L Troponin I High Sensitivity 39 *H </=34 ng/L B-Type Natriuretic Peptide 698.07 0-100 pg/mL Assessment Lower GI bleed Severe symptomatic anemia. Occult blood positive Septic shock Pneumonia Hypoglycemia Acute hypoxic respiratory failure Plan/recommendation Dr. Dickerson -family agreed with comfort measure, wishes to discontinue all heroic measures including vasopressors, blood transfusion, any other intervention. -comfort measures -only pain management and anxiety medication as needed. -no acute GI intervention -poor prognosis -discussed with family members. Plan discussed with: Other (RN) AMAYA SANDOVAL RESIDENT Aug 28, 2024 17:52
--- NOTE | 2024-08-28 18:08 | DVHPN2 ---
Progress Note - Dictate Date Seen: Aug 28, 2024 Medical Necessity Reason Pt with a Central, PICC or Fol: No Subjective Patient was dialyzed today. Post dialysis patient had an episode of massive rectal bleeding. Hemoglobin noted to be at 6. Blood transfusion started. vital signs Vital Sign Date Time Temp Pulse Resp B/P (MAP) Pulse Ox O2 Delivery O2 Flow Rate FiO2 08/28/24 17:50 97/53 08/28/24 17:30 80 18 98 08/28/24 16:46 98.7 98.7 08/28/24 10:00 Nasal Cannula 4.0 08/28/24 10:00 36 Total Intake and Output 08/27/24 08/27/24 08/28/24 15:00 23:00 07:00 Intake Total 0 ml 950 ml 300 ml Output Total 0 ml Balance 0 ml 950 ml 300 ml medications Current Medications Medications Dose Ordered Sig/Nader Route Start Time Stop Time Status Last Admin Dose Admin Acetaminophen/ Hydrocodone Bitart 1 tab Q4HP PRN PO 08/25/24 20:45 Docusate Sodium 100 mg BIDPRN PRN PO 08/25/24 20:45 Acetaminophen 650 mg Q6HP PRN PO 08/25/24 20:45 Nitroglycerin 0.4 mg Q5MINP PRN SL 08/25/24 20:45 Morphine Sulfate 2 mg Q30M PRN IV 08/25/24 20:45 08/27/24 00:27 2 MG Diagnostic Test (Pha) 1 strip ACHS 08/25/24 22:00 08/28/24 06:53 1 STRIP Insulin Human Regular ACHS SC 08/25/24 22:00 08/28/24 06:58 2 UNITS Dextrose 50 ml UD PRN IV 08/25/24 20:45 08/26/24 18:14 50 ML Ceftriaxone Sodium 50 ml @ 100 mls/hr DAILY IV 08/26/24 10:00 08/27/24 09:29 100 MLS/HR Albuterol 2.5 mg Q4HP PRN NEB 08/25/24 20:45 08/26/24 19:34 2.5 MG Dextrose 1,000 ml @ 50 mls/hr Q20H IV 08/26/24 08:00 08/28/24 00:00 50 MLS/HR Doxycycline Hyclate 100 ml @ 50 mls/hr Q12H IV 08/26/24 12:30 08/28/24 00:45 50 MLS/HR Enteral Nutritional Formula 240 ml BIDWM PO 08/27/24 18:00 Pantoprazole Sodium 40 mg BID IV 08/28/24 15:30 Norepinephrine Bitartrate 250 ml @ 3.75 mls/hr Q24H IV 08/28/24 16:30 08/28/24 16:30 3.75 MLS/HR Vasopressin 20 units/Sodium Chloride 100 ml @ 9 mls/hr Q11H7M IV 08/28/24 16:45 Morphine Sulfate 1 mg Q4HP PRN IV 08/28/24 17:15 Lorazepam 1 mg Q4HP PRN IV 08/28/24 17:15 Ondansetron HCl 4 mg Q8HPRN PRN IV 08/28/24 17:15 objective Patient obtunded Hypotensive laboratory and microbiology Laboratory Tests 08/28/24 15:42 Test 08/28/24 15:42 Range/Units Serum Glucose 101 74-106 mg/dL Problem List End-stage kidney disease on hemodialysis Encephalopathy Bilateral pneumonia Lactic acidosis secondary to metformin Hypotension Hyperkalemia Bilateral pleural effusion Hypoglycemia Hypercalcemia ,improved Assessment/Plan Discussed with family at bedside. Daughters have decided to make her comfort measures only. We will hold off on transfusion, pressors. Morphine and Ativan p.r.n. Continue with oxygen Dietary Evaluation Review Recommendations by RD: Protein Supplementation Comments: 1) Initiate Nepro bid (with meals to promote PO intake d/t SOB) 2) Continue to monitor appetite, labs, and skin integrity 3) Refer to outpatient RD/CDCES for DM education d/t uncontrolled DM Expected Outcomes/Goals: 1) appetite and labs to improve 2) skin integrity to improve 3) f/u in 5 days Plan discussed with: Daughter SHANE LOPEZ Aug 28, 2024 18:08
[2024-08-28] MEDS ORDERED: EPOETIN ALFA-EPBX 4,000 UNIT/ML VIAL SC ONE (21:00)
[2024-08-28] MEDS: MORPHINE SULFATE INJ 2 MG/ml SYRG IV PRN (21:22)
--- NOTE | 2024-08-28 22:36 | DVHPN2 ---
Progress Note - Dictate Date Seen: Aug 28, 2024 Medical Necessity Reason Pt with a Central, PICC or Fol: Yes The following are medically ne: Central Line Subjective Patient seen and examined at bedside. Remains on supplemental oxygen Overnight events reviewed. vital signs Vital Sign Date Time Temp Pulse Resp B/P (MAP) Pulse Ox O2 Delivery O2 Flow Rate FiO2 08/28/24 21:22 83 18 93/45 08/28/24 19:09 98.1 98.1 08/28/24 17:30 98 08/28/24 10:00 Nasal Cannula 4.0 08/28/24 10:00 36 Total Intake and Output 08/27/24 08/27/24 08/28/24 15:00 23:00 07:00 Intake Total 0 ml 950 ml 300 ml Output Total 0 ml Balance 0 ml 950 ml 300 ml medications Current Medications Medications Dose Ordered Sig/Nader Route Start Time Stop Time Status Last Admin Dose Admin Acetaminophen/ Hydrocodone Bitart 1 tab Q4HP PRN PO 08/25/24 20:45 Docusate Sodium 100 mg BIDPRN PRN PO 08/25/24 20:45 Cancel Acetaminophen 650 mg Q6HP PRN PO 08/25/24 20:45 Cancel Nitroglycerin 0.4 mg Q5MINP PRN SL 08/25/24 20:45 Cancel Morphine Sulfate 2 mg Q30M PRN IV 08/25/24 20:45 08/28/24 21:22 2 MG Enteral Nutritional Formula 240 ml BIDWM PO 08/27/24 18:00 Pantoprazole Sodium 40 mg BID IV 08/28/24 15:30 Cancel Morphine Sulfate 1 mg Q4HP PRN IV 08/28/24 17:15 Lorazepam 1 mg Q4HP PRN IV 08/28/24 17:15 Ondansetron HCl 4 mg Q8HPRN PRN IV 08/28/24 17:15 objective Gen.: Patient lying in bed in no apparent distress. On supplemental oxygen. Head: Normocephalic, atraumatic. Eyes: EOMI/PERRLA. Ears: Normal hearing. Normal anatomy. Neck/trachea: Trachea midline, supple. Nose: Normal external anatomy. Mouth: Moist mucous membranes. Chest: Decreased air entry bilaterally. No wheezing or rhonchi. Cardiovascular: Positive S1, positive S2. Regular rate and rhythm. Abdomen: Positive bowel sounds in all 4 quadrants. Soft, non-tender, non- distended. : Deferred. Rectal: Deferred. Skin: Warm, dry. Intact. Extremities: 2+ radial pulses bilaterally. No lower extremity edema. Neuro: Awake, alert, oriented x3. No gross motor or sensory deficits. Cranial nerves II through XII intact. Gait not assessed. laboratory and microbiology Laboratory Tests 08/28/24 15:42 Test 08/28/24 15:42 Range/Units Serum Glucose 101 74-106 mg/dL Assessment/Plan Impression: Acute hypoxic respiratory failure Lactic acidosis, resolved CHF exacerbation Fluid overload Right pleural effusion Atelectasis Hypoglycemia Hypotension Altered level of consciousness End-stage renal disease on hemodialysis Events: Remains on supplemental oxygen, 4 LPM NC Taper O2 as tolerated Rapid response was called. Patient had a large melanotic bowel movement. STAT CBC, FOBT of stool. Hemodialysis this afternoon. HD per Nephrology Plan for 2 unit PRBC Monitor hemoglobin Central line placed for venous access. Family agreed for DNR/DNI. Head of bed elevation Aspiration precautions CXR reviewed, demonstrates large pleural effusion on the right and small on the left, stable compared to prior Labs and imaging reviewed. Rest of plan as noted below. Plan: Supplemental oxygen Titrate to keep O2 sats above 92%. WBC count WNL. Continue antibiotics Lactic acidosis resolved Accu-Cheks Check PT and INR. Monitor hemoglobin Monitor renal function Monitor electrolytes Hemodialysis per nephrology DVT prophylaxis Prognosis: Poor given multiple comorbidities. Rest of plan per hospitalist and other consultants. Thank you NIRU Marsh for allowing me to participate in this patient's care. Further recommendations will depend on patient's clinical course. Please do not hesitate to contact me if you have any questions or concerns. This medical document was created using an electronic medical record system with [employer] dictation system. Although this document has been carefully reviewed, there may still be some phonetic and typographical errors. These areas are purely typographical due to imperfections of the software programs, and do not reflect any compromise in the patient's medical care. Dietary Evaluation Review Recommendations by RD: Protein Supplementation Comments: 1) Initiate Nepro bid (with meals to promote PO intake d/t SOB) 2) Continue to monitor appetite, labs, and skin integrity 3) Refer to outpatient RD/CD[facility] for DM education d/t uncontrolled DM Expected Outcomes/Goals: 1) appetite and labs to improve 2) skin integrity to improve 3) f/u in 5 days Plan discussed with: Other (RN) Critical Care Time(min): 35 TEO BEST MD Aug 28, 2024 22:36
[2024-08-28] MEDS: LORazepam 2MG/ML-1ML VIAL IV PRN (23:35)
[2024-08-29 03:02] VITALS: BP 71/45; PULSE 100; RESP 16
--- NOTE | 2024-08-29 06:12 | DVHPN2 ---
Progress Note - Dictate Date Seen: Aug 29, 2024 Medical Necessity Reason Pt with a Central, PICC or Fol: Yes The following are medically ne: Central Line vital signs Vital Sign Date Time Temp Pulse Resp B/P (MAP) Pulse Ox O2 Delivery O2 Flow Rate FiO2 08/29/24 03:02 100 16 71/45 08/28/24 23:02 88 4.0 36 08/28/24 21:00 97.8 97.8 08/28/24 20:00 Nasal Cannula* Total Intake and Output 08/28/24 08/28/24 08/29/24 15:00 23:00 07:00 Intake Total 300 ml Balance 300 ml medications Current Medications Medications Dose Ordered Sig/Nader Route Start Time Stop Time Status Last Admin Dose Admin Acetaminophen/ Hydrocodone Bitart 1 tab Q4HP PRN PO 08/25/24 20:45 Docusate Sodium 100 mg BIDPRN PRN PO 08/25/24 20:45 Cancel Acetaminophen 650 mg Q6HP PRN PO 08/25/24 20:45 Cancel Nitroglycerin 0.4 mg Q5MINP PRN SL 08/25/24 20:45 Cancel Morphine Sulfate 2 mg Q30M PRN IV 08/25/24 20:45 08/27/24 00:27 2 MG Enteral Nutritional Formula 240 ml BIDWM PO 08/27/24 18:00 Pantoprazole Sodium 40 mg BID IV 08/28/24 15:30 Cancel Morphine Sulfate 1 mg Q4HP PRN IV 08/28/24 17:15 08/29/24 03:02 1 MG Lorazepam 1 mg Q4HP PRN IV 08/28/24 17:15 08/28/24 23:35 1 MG Ondansetron HCl 4 mg Q8HPRN PRN IV 08/28/24 17:15 laboratory and microbiology Laboratory Tests 08/28/24 15:42 Test 08/28/24 15:42 Range/Units Serum Glucose 101 74-106 mg/dL Assessment/Plan Patient had before visit by me today. Dietary Evaluation Review Recommendations by RD: Protein Supplementation Comments: 1) Initiate Nepro bid (with meals to promote PO intake d/t SOB) 2) Continue to monitor appetite, labs, and skin integrity 3) Refer to outpatient RD/CD[facility] for DM education d/t uncontrolled DM Expected Outcomes/Goals: 1) appetite and labs to improve 2) skin integrity to improve 3) f/u in 5 days Plan discussed with: Other (nurse) CAREY MCKEON MD Aug 29, 2024 06:12
--- NOTE | 2024-08-29 22:08 | DVHPN2 ---
Progress Note - Dictate Date Seen: Aug 29, 2024 Medical Necessity Reason Pt with a Central, PICC or Fol: Yes The following are medically ne: Central Line Subjective Patient seen and examined at bedside. Remains on supplemental oxygen Overnight events reviewed. vital signs Vital Sign Date Time Temp Pulse Resp B/P (MAP) Pulse Ox O2 Delivery O2 Flow Rate FiO2 08/29/24 03:02 100 16 71/45 08/28/24 23:02 88 4.0 36 08/28/24 21:00 97.8 97.8 08/28/24 20:00 Nasal Cannula* Total Intake and Output 08/28/24 08/28/24 08/29/24 15:00 23:00 07:00 Intake Total 300 ml Balance 300 ml medications Current Medications Medications Dose Ordered Sig/Nader Route Start Time Stop Time Status Last Admin Dose Admin Docusate Sodium 100 mg BIDPRN PRN PO 08/25/24 20:45 Cancel Acetaminophen 650 mg Q6HP PRN PO 08/25/24 20:45 Cancel Nitroglycerin 0.4 mg Q5MINP PRN SL 08/25/24 20:45 Cancel Pantoprazole Sodium 40 mg BID IV 08/28/24 15:30 Cancel objective Gen.: Patient lying in bed in no apparent distress. On supplemental oxygen. Head: Normocephalic, atraumatic. Eyes: EOMI/PERRLA. Ears: Normal hearing. Normal anatomy. Neck/trachea: Trachea midline, supple. Nose: Normal external anatomy. Mouth: Moist mucous membranes. Chest: Decreased air entry bilaterally. No wheezing or rhonchi. Cardiovascular: Positive S1, positive S2. Regular rate and rhythm. Abdomen: Positive bowel sounds in all 4 quadrants. Soft, non-tender, non- distended. : Deferred. Rectal: Deferred. Skin: Warm, dry. Intact. Extremities: 2+ radial pulses bilaterally. No lower extremity edema. Neuro: Awake, alert, oriented x3. No gross motor or sensory deficits. Cranial nerves II through XII intact. Gait not assessed. laboratory and microbiology Laboratory Tests 08/28/24 15:42 Test 08/28/24 15:42 Range/Units Serum Glucose 101 74-106 mg/dL Assessment/Plan Impression: Acute hypoxic respiratory failure Lactic acidosis, resolved CHF exacerbation Fluid overload Right pleural effusion Atelectasis Hypoglycemia Hypotension Altered level of consciousness End-stage renal disease on hemodialysis Events: Family agreed for DNR/DNI. Poor prognosis Head of bed elevation Aspiration precautions High likelihood of demise. Informed that patient at 500 AM. Labs and imaging reviewed. Rest of plan as noted below. Plan: Supplemental oxygen Titrate to keep O2 sats above 92%. WBC count WNL. Continue antibiotics Accu-Cheks Check PT and INR. Monitor hemoglobin Monitor renal function Monitor electrolytes Hemodialysis per nephrology DVT prophylaxis Prognosis: Poor given multiple comorbidities. Rest of plan per hospitalist and other consultants. Thank you NIRU Marsh for allowing me to participate in this patient's care. Please do not hesitate to contact me if you have any questions or concerns. This medical document was created using an electronic medical record system with [employer] system. Although this document has been carefully reviewed, there may still be some phonetic and typographical errors. These areas are purely typographical due to imperfections of the software programs, and do not reflect any compromise in the patient's medical care. Dietary Evaluation Review Recommendations by RD: Protein Supplementation Comments: 1) Initiate Nepro bid (with meals to promote PO intake d/t SOB) 2) Continue to monitor appetite, labs, and skin integrity 3) Refer to outpatient RD/[facility] for DM education d/t uncontrolled DM Expected Outcomes/Goals: 1) appetite and labs to improve 2) skin integrity to improve 3) f/u in 5 days Plan discussed with: Other (NEERAJ Castro) TEO BEST MD Aug 29, 2024 22:08
--- NOTE | 2024-08-30 13:14 | DVHDS2 ---
Discharge Summary Date of Admission Aug 25, 2024 at 20:40 Date of Discharge: Aug 29, 2024 Labs/Diagnostic Data: Laboratory Results Test 08/28/24 15:48 08/28/24 15:42 08/28/24 15:34 08/28/24 15:12 Blood Gas Specimen Type Arterial Blood Gas Sample Site Right fermoral Blood Gas Patient Temperature 37.0 Arterial Blood Date Drawn [id number] Arterial Blood pH 7.456 (7.350-7.450) Arterial Blood Partial Pressure CO2 47.9 mmHg (32.0-45.0) Arterial Blood Partial Pressure O2 59.8 mmHg (83.0-108.0) Arterial Blood HCO3 33.0 mmol/L (21.0-28.0) Arterial Blood Oxygen Saturation 87.7 % (94.0-98.0) Arterial Blood Base Excess 8.4 mmol/L (-2.0-3.0) Arterial Blood Oxyhemoglobin 86.8 % (94.0-98.0) Arterial Blood Carboxyhemoglobin 0.3 % (0.5-1.5) Arterial Blood Methemoglobin 0.7 % (0.0-1.5) Justus Test N/a Blood Gas Total Hemoglobin 5.50 g/dL (12.0-16.0) Blood Gas Liter Flow 3.00 Blood Gas Modality Nasal cannula Blood Gas Spontaneous Rate 16 FiO2 % 32.0 Specimen Drawn By Roxana palacios. Blood Gas Critical Value Read Back Yes Blood Gas Notified Whom Roxana palacios md Blood Gas Notified Time [id number] Blood Gas Notified By Kendrick haynes, rt White Blood Count 5.8 10^3/uL (4.4-10.8) Red Blood Count 2.16 10^6/uL (4.0-5.20) Hemoglobin 6.1 g/dL (12.2-16.2) Hematocrit 19.0 % (36.0-46.0) Mean Corpuscular Volume 88.0 fL (80.0-100.0) Mean Corpuscular Hemoglobin 28.1 pg (28.0-32.0) Mean Corpuscular Hemoglobin Concent 31.9 g/dL (32.0-36.0) Red Cell Distribution Width 17.5 % (11.8-14.3) Platelet Count 122 10^3/uL (140-450) Mean Platelet Volume 8.0 fL (6.9-10.8) Neutrophils (%) (Auto) 81.5 % (37.0-80.0) Lymphocytes (%) (Auto) 10.6 % (10.0-50.0) Monocytes (%) (Auto) 7.0 % (0.0-12.0) Eosinophils (%) (Auto) 0.3 % (0.0-7.0) Basophils (%) (Auto) 0.6 % (0.0-2.0) Neutrophils # (Auto) 4.7 10 ^3/uL (1.6-8.6) Lymphocytes # (Auto) 0.6 10 ^3/uL (0.4-5.4) Monocytes # (Auto) 0.4 10 ^3/uL (0-1.3) Eosinophils # (Auto) 0 10 ^3/uL (0-0.8) Basophils # (Auto) 0 10 ^3/uL (0-0.2) Differential Total Cells Counted 100.0 (100) Neutrophils % (Manual) 85 (37.0-80.0) Band Neutrophils % (Manual) 0 Lymphocytes % (Manual) 7 (10.0-50.0) Monocytes % (Manual) 8 (0-12) Eosinophils % (Manual) 0 (0-7) Basophils % (Manual) 0 (0.0-2.0) Metamyelocytes % (manual) 0 Myelocytes % (Manual) 0 Promyelocytes % (Manual) 0 Blast Cells % (Manual) 0 Nucleated Red Blood Cells 0.1 % Reactive Lymphocytes 0 Platelet Estimate Decreased Hypochromasia (manual) Moderate Anisocytosis (manual) Slight Sodium Level 139 mmol/L (136-145) Potassium Level 3.4 mmol/L (3.5-5.1) Chloride Level 99 mmol/L (98-107) Carbon Dioxide Level 34 mmol/L (20-31) Anion Gap 6 (5-15) Blood Urea Nitrogen 27 mg/dL (9-23) Creatinine 1.60 mg/dL (0.550-1.02) Glomerular Filtration Rate Calc 33 mL/min (>90) BUN/Creatinine Ratio 16.9 (10.0-20.0) Serum Glucose 101 mg/dL (74-106) Lactic Acid Level 1.1 mmol/L (0.4-2.0) Calcium Level 8.4 mg/dL (8.7-10.4) POC Glucose 72 mg/dl (70-106) Stool Occult Blood Positive (Negative) Stool Occult Blood Sample #3 (Negative) Test 08/27/24 09:17 08/27/24 06:24 08/26/24 06:44 08/26/24 06:39 Total Bilirubin 0.5 mg/dL (0.2-1.0) Aspartate Amino Transferase (AST) 57 U/L (13-40) Alanine Aminotransferase (ALT) 41 U/L (7-40) Alkaline Phosphatase 115 U/L (46-116) Total Protein 6.2 g/dL (5.7-8.2) Albumin 3.4 g/dL (3.2-4.8) Prothrombin Time 14.0 sec (9.3-11.8) Prothrombin Time INR 1.36 (0.9-1.15) Triglycerides Level 42 mg/dL (< 150) Cholesterol Level 78 mg/dL (< 200) LDL Cholesterol 15 mg/dL (< 100) HDL Cholesterol 46 mg/dL (40-59) Hepatitis A IgM Antibody Negative Hepatitis B Surface Antigen Negative (Negative) Hepatitis B Core IgM Antibody Negative (Negative) Hepatitis C Antibody Negative (Negative) Test 08/26/24 05:57 08/25/24 22:07 08/25/24 20:13 08/25/24 17:00 Hemoglobin A1c 8.2 % A1C (<5.7) Beta-Hydroxybutyric Acid 2.027 mmol/L (< 0.4) Troponin I High Sensitivity 39 ng/L (</=34) B-Type Natriuretic Peptide 698.07 pg/mL (0-100) Other Laboratory Tests 08/28/24 15:42 Condition at Discharge: Undetermined Discharge Disposition: at Hospital Discharge Statement: All questions were answered to the best of my ability. This discharge took greater then 30 minutes in planning, reviewing documentation, counseling the patient, and discussing with other team members. ASSESSMENT ASSESSMENT Assessment SHANE MORALES NP Aug 30, 2024 13:14
--- NOTE | 2024-08-30 13:14 | DVHDS2 ---
Summary Date of Admission Aug 25, 2024 at 20:40 Date and Time of Expiration: Aug 29, 2024 05:03 Labs/Diagnostic Data: Laboratory Results Test 08/28/24 15:48 08/28/24 15:42 08/28/24 15:34 08/28/24 15:12 Blood Gas Specimen Type Arterial Blood Gas Sample Site Right fermoral Blood Gas Patient Temperature 37.0 Arterial Blood Date Drawn [id number] Arterial Blood pH 7.456 (7.350-7.450) Arterial Blood Partial Pressure CO2 47.9 mmHg (32.0-45.0) Arterial Blood Partial Pressure O2 59.8 mmHg (83.0-108.0) Arterial Blood HCO3 33.0 mmol/L (21.0-28.0) Arterial Blood Oxygen Saturation 87.7 % (94.0-98.0) Arterial Blood Base Excess 8.4 mmol/L (-2.0-3.0) Arterial Blood Oxyhemoglobin 86.8 % (94.0-98.0) Arterial Blood Carboxyhemoglobin 0.3 % (0.5-1.5) Arterial Blood Methemoglobin 0.7 % (0.0-1.5) Justus Test N/a Blood Gas Total Hemoglobin 5.50 g/dL (12.0-16.0) Blood Gas Liter Flow 3.00 Blood Gas Modality Nasal cannula Blood Gas Spontaneous Rate 16 FiO2 % 32.0 Specimen Drawn By Roxana palacios. Blood Gas Critical Value Read Back Yes Blood Gas Notified Whom Roxana palacios md Blood Gas Notified Time [id number] Blood Gas Notified By Kendrick haynes, rt White Blood Count 5.8 10^3/uL (4.4-10.8) Red Blood Count 2.16 10^6/uL (4.0-5.20) Hemoglobin 6.1 g/dL (12.2-16.2) Hematocrit 19.0 % (36.0-46.0) Mean Corpuscular Volume 88.0 fL (80.0-100.0) Mean Corpuscular Hemoglobin 28.1 pg (28.0-32.0) Mean Corpuscular Hemoglobin Concent 31.9 g/dL (32.0-36.0) Red Cell Distribution Width 17.5 % (11.8-14.3) Platelet Count 122 10^3/uL (140-450) Mean Platelet Volume 8.0 fL (6.9-10.8) Neutrophils (%) (Auto) 81.5 % (37.0-80.0) Lymphocytes (%) (Auto) 10.6 % (10.0-50.0) Monocytes (%) (Auto) 7.0 % (0.0-12.0) Eosinophils (%) (Auto) 0.3 % (0.0-7.0) Basophils (%) (Auto) 0.6 % (0.0-2.0) Neutrophils # (Auto) 4.7 10 ^3/uL (1.6-8.6) Lymphocytes # (Auto) 0.6 10 ^3/uL (0.4-5.4) Monocytes # (Auto) 0.4 10 ^3/uL (0-1.3) Eosinophils # (Auto) 0 10 ^3/uL (0-0.8) Basophils # (Auto) 0 10 ^3/uL (0-0.2) Differential Total Cells Counted 100.0 (100) Neutrophils % (Manual) 85 (37.0-80.0) Band Neutrophils % (Manual) 0 Lymphocytes % (Manual) 7 (10.0-50.0) Monocytes % (Manual) 8 (0-12) Eosinophils % (Manual) 0 (0-7) Basophils % (Manual) 0 (0.0-2.0) Metamyelocytes % (manual) 0 Myelocytes % (Manual) 0 Promyelocytes % (Manual) 0 Blast Cells % (Manual) 0 Nucleated Red Blood Cells 0.1 % Reactive Lymphocytes 0 Platelet Estimate Decreased Hypochromasia (manual) Moderate Anisocytosis (manual) Slight Sodium Level 139 mmol/L (136-145) Potassium Level 3.4 mmol/L (3.5-5.1) Chloride Level 99 mmol/L (98-107) Carbon Dioxide Level 34 mmol/L (20-31) Anion Gap 6 (5-15) Blood Urea Nitrogen 27 mg/dL (9-23) Creatinine 1.60 mg/dL (0.550-1.02) Glomerular Filtration Rate Calc 33 mL/min (>90) BUN/Creatinine Ratio 16.9 (10.0-20.0) Serum Glucose 101 mg/dL (74-106) Lactic Acid Level 1.1 mmol/L (0.4-2.0) Calcium Level 8.4 mg/dL (8.7-10.4) POC Glucose 72 mg/dl (70-106) Stool Occult Blood Positive (Negative) Stool Occult Blood Sample #3 (Negative) Test 08/27/24 09:17 08/27/24 06:24 08/26/24 06:44 08/26/24 06:39 Total Bilirubin 0.5 mg/dL (0.2-1.0) Aspartate Amino Transferase (AST) 57 U/L (13-40) Alanine Aminotransferase (ALT) 41 U/L (7-40) Alkaline Phosphatase 115 U/L (46-116) Total Protein 6.2 g/dL (5.7-8.2) Albumin 3.4 g/dL (3.2-4.8) Prothrombin Time 14.0 sec (9.3-11.8) Prothrombin Time INR 1.36 (0.9-1.15) Triglycerides Level 42 mg/dL (< 150) Cholesterol Level 78 mg/dL (< 200) LDL Cholesterol 15 mg/dL (< 100) HDL Cholesterol 46 mg/dL (40-59) Hepatitis A IgM Antibody Negative Hepatitis B Surface Antigen Negative (Negative) Hepatitis B Core IgM Antibody Negative (Negative) Hepatitis C Antibody Negative (Negative) Test 08/26/24 05:57 08/25/24 22:07 08/25/24 20:13 08/25/24 17:00 Hemoglobin A1c 8.2 % A1C (<5.7) Beta-Hydroxybutyric Acid 2.027 mmol/L (< 0.4) Troponin I High Sensitivity 39 ng/L (</=34) B-Type Natriuretic Peptide 698.07 pg/mL (0-100) Other Laboratory Tests 08/28/24 15:42 Brief Hx & Hospital Course: Patient is a 78 year old female with a PHx of dialysis presenting to the ED with bradycardia, low blood sugar and nausea. Patient's family states that the patient has been experiencing nausea and the physician proceeded with dialysis in which it resulted in systolically low BP and low blood sugar. Patient is also a poor historian. While in the emergency department the patient was evaluated by the provider, Labs, vital signs, and imagining monitored. Patient was admitted on 08/25/2024. Patient was found to have severe metformin induced lactic acidosis. Patient has a history of end-stage renal disease on hemodialysis. Chest x-ray showed pleural effusion and possible pneumonia. Patient had a lactic acid level of 18 on admission. [employer] was consulted and patient did receive emergent hemodialysis. Patient did have full coverage antibiotics with Rocephin and doxycycline. Patient's lactic acid resolved after hemodialysis. Patient's neurostatus did not improve. Patient again received hemodialysis today on 08/28/2024. Patient started having signs and symptoms of bertha rectal bleeding. Patient had 2 units of blood ordered. Family has been at bedside. discussed goals of care with patient's family. Patient was made a DNR. Patient was transitioned to comfort measures. Patient was placed on vasopressors due to acute blood loss anemia. Vasopressors were continued and patient was started on IV Ativan and morphine for comfort. Patient's condition did not improve. Patient passed at 05:03. Patient was pronounced by [employer] Sixto. Time of : 05:03 Final Diagnosis/Problems List PNA Failure to thrive Hypoglycemia ESRD on HD Bilateral Pleural Effusion Lactic Acidosis Metabolic encephalopathy Discharge Disposition: at Hospital SHANE MORALES NP Aug 30, 2024 13:14
== END 2024-08-29 11:25 | DRG 720 ==
LOC: ER 15:16 → EDBD 15:16 → OVERFLOW 20:40 → TELE-WESTW 08-26 18:47 → TELE-CENTR 08-28 17:42 → TELE-WESTW 08-29 10:52 → TELE-CENTR 08-29 11:23
PROVIDERS: ADMIT Nurse Practitioner; ATTEND Internal Medicine
PROC: 30233N1 Transfusion of Nonautologous Red Blood Cells into Peripheral Vein, Percutaneous Approach (ICD-10-PCS; principal; 2024-08-28)
PROC: 04HY32Z Insertion of Monitoring Device into Lower Artery, Percutaneous Approach (ICD-10-PCS; 2024-08-28)
DX: A41.50 Gram-negative sepsis, unspecified (principal); J96.01 Acute respiratory failure with hypoxia; R65.21 Severe sepsis with septic shock; G93.41 Metabolic encephalopathy; I50.23 Acute on chronic systolic (congestive) heart failure; J15.69 Pneumonia due to other Gram-negative bacteria; N18.6 End stage renal disease; E87.20 Acidosis, unspecified; E11.649 Type 2 diabetes mellitus with hypoglycemia without coma; K92.2 Gastrointestinal hemorrhage, unspecified; E11.22 Type 2 diabetes mellitus with diabetic chronic kidney disease; E87.5 Hyperkalemia; J98.11 Atelectasis; D63.1 Anemia in chronic kidney disease; E83.52 Hypercalcemia; D62 Acute posthemorrhagic anemia; E11.65 Type 2 diabetes mellitus with hyperglycemia; T38.3X5A Adverse effect of insulin and oral hypoglycemic [antidiabetic] drugs, initial encounter; I95.9 Hypotension, unspecified; E78.5 Hyperlipidemia, unspecified; R62.7 Adult failure to thrive; I13.2 Hypertensive heart and chronic kidney disease with heart failure and with stage 5 chronic kidney disease, or end stage renal disease; J15.9 Unspecified bacterial pneumonia; I25.5 Ischemic cardiomyopathy; I25.10 Atherosclerotic heart disease of native coronary artery without angina pectoris; Y92.89 Other specified places as the place of occurrence of the external cause; Z79.899 Other long term (current) drug therapy; Z79.2 Long term (current) use of antibiotics; Z68.23 Body mass index [BMI] 23.0-23.9, adult; I50.22 Chronic systolic (congestive) heart failure
CPT/HCPCS: 31500; 36415; 36600; 36620; 71045; 76604; 80048; 80053; 80061; 80074; 82010; 82270; 82805; 82962; 83036; 83605; 83880; 84484; 85007; 85014; 85018; 85025; 85027; 85610; 86850; 86900; 86901; 86920; 90935; 93005; 93306; 94640; 96365; 96375; 99291; G0378; J1642; J1815; J2405; J2543; P9047